=== PATIENT | male | born 1945 | race African-American/Black ===

== ENCOUNTER 2017-03-13 13:26 | Inpatient (IN) | payer MEDICARE, OTHER ==
[~2017-03-13] VITALS: Ht 188 cm; Wt 78.4 kg
[~2017-03-13 13:26] MED LIST: AMLO5TAB22 PO; ASPI1TAB7 PO; ATRO0.03 EACH NARE; CARV25TA PO; FERR324T4 PO; FLUN25I EACH NARE; HYDR-2768 PO; HYDR-3533 PO; LANTUS2P SQ; LISI-363 PO; MOME16.7; NOVOINJ3 SQ; OMEP20TA PO; SIMV20 PO; SPIRCAP INH; WAL-10TA2 PO; ZOFR4TAB3 SL
[2017-03-13 13:28] VITALS: BP 165/73; PULSE 90; RESP 20; TEMP 99.1; O2SAT 99
[2017-03-13 15:06] LABS: AUTOMATED NEUTROPHIL # 2.7 TH/MM3 (1.8-7.7); BASOPHIL # 0.1 TH/MM3 (0-0.2); BASOPHIL % 1.1 % (0.0-2.0); EOSINOPHIL # 0.3 TH/MM3 (0-0.4); EOSINOPHIL % 4.9 % (0.0-4.0); HEMATOCRIT 35.5 % (39.0-51.0); LYMPH % 37.8 % (9.0-44.0); LYMPHOCYTE # 2.4 TH/MM3 (1.0-4.8); MEAN CORPUSCULAR HEMOGLOBIN 28.3 PG (27.0-34.0); MEAN CORPUSCULAR HGB CONC 33.7 % (32.0-36.0); MONO % 12.5 % (0.0-8.0); MONOCYTE # 0.8 TH/MM3 (0-0.9); NEUT % 43.7 % (16.0-70.0); PLATELET COUNT 267 TH/MM3 (150-450); RED BLOOD COUNT 4.23 MIL/MM3 (4.50-5.90); RED CELL DISTRIBUTION WIDTH 14.8 % (11.6-17.2); WHITE BLOOD COUNT 6.2 TH/MM3 (4.0-11.0)
[2017-03-13] MEDS ORDERED: COUM2.5T PO (15:34)
[2017-03-13] MEDS ORDERED: IPRA0.06 EACH NARE (15:34)
[2017-03-13] MEDS ORDERED: SIMV10TA PO (15:34)
[2017-03-13] MEDS ORDERED: HYDR25TA5 PO (15:34)
[2017-03-13] MEDS ORDERED: NOVOINJ3 SQ (15:34)
[2017-03-13] MEDS ORDERED: LANTUS2P SQ (15:34)
[2017-03-13] MEDS ORDERED: CARV25TA PO (15:34)
[2017-03-13] MEDS ORDERED: FERR325T18 PO (15:34)
[2017-03-13] MEDS ORDERED: FLUN25I EACH NARE (15:34)
[2017-03-13] MEDS ORDERED: COUM5TAB PO (15:34)
[2017-03-13] MEDS ORDERED: LORA-567 PO (15:34)
[2017-03-13] MEDS ORDERED: ALBI1INJ2 SQ (15:34)
[2017-03-13] MEDS ORDERED: OMEP20TA93 PO (15:34)
[2017-03-13 15:38] LABS: ALKALINE PHOSPHATASE 77 U/L (45-117); ALT (GPT) 42 U/L (12-78); TOTAL BILIRUBIN ADULT 0.2 MG/DL (0.2-1.0); TOTAL PROTEIN 8.2 GM/DL (6.4-8.2); TROPONIN I LESS THAN 0.02 NG/ML (0.02-0.05)
--- NOTE | 2017-03-13 15:39 | RADRPT ---
EXAM DATE/TIME: 03/13/2017 14:52 [facility] COMPARISON: CT BRAIN W/O CONTRAST, September 02, 2014, 16:25. INDICATIONS : Left sided weakness RADIATION DOSE: 38.73 CTDIvol (mGy) MEDICAL HISTORY : Hypertension. Cerebrovascular disease. Diabtes SURGICAL HISTORY : None. ENCOUNTER: Initial ACUITY: 3 days PAIN SCALE: 3/10 LOCATION: cranial TECHNIQUE: Multiple contiguous axial images were obtained of the head. Using automated exposure control and adj ustment of the mA and/or kV according to patient size, radiation dose was kept as low as reasonably a chievable to obtain optimal diagnostic quality images. DICOM format image data is available electro nically for review and comparison. FINDINGS: CEREBRUM: The ventricles are normal for age. No evidence of midline shift, mass lesion, hemorrhage or acute in farction. No extra-axial fluid collections are seen. POSTERIOR FOSSA: The cerebellum and brainstem are intact. The 4th ventricle is midline. The cerebellopontine angle i s unremarkable. EXTRACRANIAL: The visualized portion of the orbits is intact. SKULL: The calvaria is intact. No evidence of skull fracture. CONCLUSION: Negative for an acute process. Richard Alvarez MD FACR on March 13, 2017 at 15:36 Board Certified Radiologist. This report was verified electronically.
[2017-03-13 15:40] LABS: ALBUMIN 3.3 GM/DL (3.4-5.0); AST (GOT) 30 U/L (15-37); BLOOD UREA NITROGEN 49 MG/DL (7-18); CALCIUM 8.6 MG/DL (8.5-10.1); CHLORIDE 111 MEQ/L (98-107); CREATININE 3.18 MG/DL (0.60-1.30); GLOMERULAR FILTRATION RATE 24 ML/MIN (>89); GLUCOSE,RANDOM 188 MG/DL (74-106); SODIUM (NA) 139 MEQ/L (136-145)
[2017-03-13 15:41] LABS: INTERNATIONAL NORMALIZED RATIO 3.4 RATIO; PROTHROMBIN TIME - PATIENT 34.1 SEC (9.8-11.6)
[2017-03-13] MEDS ORDERED: SODIUM CHLORIDE 0.9% FLUSH 10 ML FLUSH IV FLUSH PRN (17:00)
[2017-03-13] MEDS ORDERED: DEXTROSE 50% IN WATER 50 ML VIAL(D50) IV PUSH PRN (17:00)
[2017-03-13] MEDS ORDERED: GLUCAGON 1 MG/ML VIAL OTHER PRN (17:00)
--- NOTE | 2017-03-13 17:14 | PD ---
HPI Chief Complaint: Numbness/Tingling Time Seen by Provider: 15:26 Travel History International Travel<30 days: No Contact w/Intl Traveler<30days: No Traveled to known affect area: No History of Present Illness HPI 71-year-old male that presents to the ED for evaluation of left-sided weakness and numbness. Per patient she's had this since Monday. Per patient since Monday he noted that he could've virally write with his left hand. Patient is left-handed. Per patient he noticed that he did go to improve a little bit but he still has difficulty writing. Per patient he feels weak on his arm. Per patient also he noticed that he had a little bit of left foot drop. Per patient he had difficulty ambulating but this itself has improved almost 100% back to normal. Per family members she's noted the patient has been confused in location in the past couple of days and unclear as to why brought the patient here today but it appears that symptoms are not improved and this is what got him here. Patient denies any chest pain. No shortness of breath. No history of CVA or TIA. No workup for this in the past. He does have a history of diabetes and high blood pressure. Denies any numbness, tingling at this time. No headache. No blurry vision or double vision. PFSH Past Medical History High Cholesterol: Yes Diabetes: Yes Patient Takes Glucophage: No Diminished Hearing: No GERD: Yes Hypertension: Yes Medical other: Yes (GOUT, RENAL INSUFFICIENCY) Immunizations Current: No Tetanus Vaccination: Unknown Influenza Vaccination: Yes Past Surgical History Eye Surgery: Yes (R EYE SURGERY) Other Surgery: Yes (BILATERAL LUNG BIOPSY ) Social History Alcohol Use: No Tobacco Use: No Substance Use: No Allergies-Medications (Allergen,Severity, Reaction): Coded Allergies: latex (Unverified Allergy, Unknown, Swelling, 03/13/17) Reported Meds & Prescriptions Reported Meds & Active Scripts Active Reported Coumadin (Warfarin) 5 Mg Tab 5 Mg PO ,,MON,SUN Coumadin (Warfarin) 2.5 Mg Tab 2.5 Mg PO MON,WED,MON Ferrous Sulfate 325 Mg (65 Mg Iron) Tablet 325 Mg PO BIDPC Ipratropium Nasal 0.06% Highland 1 Highland EACH NARE TID Loratadine Odt (Loratadine) 10 Mg Tab 10 Mg PO DAILY Omeprazole 20 Mg Tab 20 Mg PO DAILY Flunisolide Nasal Highland (Flunisolide) 0.025 Mg/Act Naspr 2 Highland EACH NARE BID Simvastatin 10 Mg Tab 10 Mg PO HS Carvedilol 25 Mg Tab 25 Mg PO BID Hydrochlorothiazide 25 Mg Tab 25 Mg PO DAILY Lantus Inj (Insulin Glargine) 1,000 Unit/10 Ml Vial 22 Units SQ HS Novolog Flexpen Inj (Insulin Aspart) 300 Unit/3 Ml Pen 1 SQ TID Tanzeum 4-Pack Inj (Albiglutide) 50 Mg Pfpen 50 Mg SQ Q7D Review of Systems Except as stated in HPI: all other systems reviewed are Neg Physical Exam Narrative GENERAL: SKIN: Warm and dry. HEAD: Atraumatic. Normocephalic. EYES: Pupils equal and round. No scleral icterus. No injection or drainage. ENT: No nasal bleeding or discharge. Mucous membranes pink and moist. Tongue is midline. No uvula deviation. NECK: Trachea midline. No JVD. CARDIOVASCULAR: Regular rate and rhythm. No murmurs, S3, S4. RESPIRATORY: No accessory muscle use. Clear to auscultation. Breath sounds equal bilaterally. GASTROINTESTINAL: Abdomen soft, non-tender, nondistended. Hepatic and splenic margins not palpable. MUSCULOSKELETAL: Extremities without clubbing, cyanosis, or edema. No obvious deformities. Full range of motion of the upper and lower extremities bilaterally. 2+ pulses bilaterally. No cervical, thoracic, lumbar spine tenderness to palpation. Patient does have weakness with plantar flexion on the left foot compared to the right but minimal maybe 4.5 out of 5. Same noted on the left hand with disability program navigator otherwise unremarkable exam. NEUROLOGICAL: Awake and alert and oriented 4. No obvious cranial nerve deficits. Motor grossly within normal limits. Five out of 5 muscle strength in the arms and legs. Normal speech. PSYCHIATRIC: Appropriate mood and affect; insight and judgment normal. Data Data Last Documented VS Vital Signs Date Time Temp Pulse Resp B/P (MAP) Pulse Ox O2 Delivery O2 Flow Rate FiO2 03/13/17 13:28 99.1 90 20 165/73 (103) 99 Room Air Orders Orders Electrocardiogram (03/13/17 13:41) Prothrombin Time / Inr (Pt) (03/13/17 13:41) Act Partial Throm Time (Ptt) (03/13/17 13:41) Complete Blood Count With Diff (03/13/17 13:41) Comprehensive Metabolic Panel (03/13/17 13:41) Troponin I (03/13/17 13:41) Ct Brain W/O Iv Contrast(Rout) (03/13/17 13:41) Ct Cerv Spine W/O Contrast (03/13/17 ) Place In Observation (03/13/17 ) Vital Signs (Adult) Q2HX12,Q4H (03/13/17 16:59) Nih Stroke Scale - Nihss .Daily (03/13/17 16:59) Neuro Checks Q2HX12,Q4H (03/13/17 16:59) Notify Dr: Other (03/13/17 16:59) Remove Urinary Catheter .ONCE (03/13/17 16:59) Ot Request For Service (03/13/17 16:59) Pt Request For Service (03/13/17 16:59) Case Management Consult (03/13/17 ) Activity Oob Ad Kimber (03/13/17 16:59) Nursing Bedside Swallow Assess .ONCE (03/13/17 16:59) Scd Bilateral/Knee High JAYSON.QSHIFT (03/13/17 16:59) Diet Npo (03/13/17 Dinner) Hemoglobin (Hgb) A1c (03/13/17 16:59) Lipid Profile (03/14/17 06:00) Us Carotid Arteries Comp Bilat (03/13/17 ) Mra Brain W/O Contrast (Cow) (03/13/17 ) Mri Brain W/O Contrast (03/13/17 ) Echo 2d Comp With Doppler (03/13/17 ) ^ Hold Medication (03/13/17 16:59) Consult Neurology (03/13/17 ) Sodium Chloride 0.9% Flush (Ns Flush) (03/13/17 21:00) Sodium Chloride 0.9% Flush (Ns Flush) (03/13/17 17:00) Bedside Glucose JAYSON.CSUGAR (03/13/17 16:59) Dextrose 50% In Rickie (Vial) Inj (D50w (Vi (03/13/17 17:00) Glucagon Inj (Glucagon Inj) (03/13/17 17:00) Consult Rehab Medicine (03/13/17 16:59) Intermediate Card Tender / Telemetry JAYSON.Q8H (03/13/17 16:59) Consult Stroke Navigator (03/13/17 ) Admit Order (Ed Use Only) (03/13/17 17:05) Labs Laboratory Tests Test 03/13/17 14:07 White Blood Count 6.2 TH/MM3 Red Blood Count 4.23 MIL/MM3 Hemoglobin 12.0 GM/DL Hematocrit 35.5 % Mean Corpuscular Volume 84.0 FL Mean Corpuscular Hemoglobin 28.3 PG Mean Corpuscular Hemoglobin Concent 33.7 % Red Cell Distribution Width 14.8 % Platelet Count 267 TH/MM3 Mean Platelet Volume 9.0 FL Neutrophils (%) (Auto) 43.7 % Lymphocytes (%) (Auto) 37.8 % Monocytes (%) (Auto) 12.5 % Eosinophils (%) (Auto) 4.9 % Basophils (%) (Auto) 1.1 % Neutrophils # (Auto) 2.7 TH/MM3 Lymphocytes # (Auto) 2.4 TH/MM3 Monocytes # (Auto) 0.8 TH/MM3 Eosinophils # (Auto) 0.3 TH/MM3 Basophils # (Auto) 0.1 TH/MM3 CBC Comment DIFF FINAL Differential Comment Prothrombin Time 34.1 SEC Prothromb Time International Ratio 3.4 RATIO Activated Partial Thromboplast Time 39.3 SEC Blood Urea Nitrogen 49 MG/DL Creatinine 3.18 MG/DL Random Glucose 188 MG/DL Total Protein 8.2 GM/DL Albumin 3.3 GM/DL Calcium Level 8.6 MG/DL Alkaline Phosphatase 77 U/L Aspartate Amino Transf (AST/SGOT) 30 U/L Alanine Aminotransferase (ALT/SGPT) 42 U/L Total Bilirubin 0.2 MG/DL Sodium Level 139 MEQ/L Potassium Level 4.9 MEQ/L Chloride Level 111 MEQ/L Carbon Dioxide Level 21.0 MEQ/L Anion Gap 7 MEQ/L Estimat Glomerular Filtration Rate 24 ML/MIN Troponin I LESS THAN 0.02 NG/ML MDM Medical Decision Making Medical Screen Exam Complete: Yes Emergency Medical Condition: Yes Medical Record Reviewed: Yes Interpretation(s) CBC & BMP Diagram 03/13/17 14:07 Total Protein 8.2, Albumin 3.3 L, Calcium Level 8.6, Alkaline Phosphatase 77, Aspartate Amino Transf (AST/SGOT) 30, Alanine Aminotransferase (ALT/SGPT) 42, Total Bilirubin 0.[address] 03/13/17 1341 Signed Impressions: Service Date/Time: Monday, March 13, 2017 14:52 - CONCLUSION: Negative for an acute process. Richard Alvarez MD FACR Differential Diagnosis TA versus CVA versus electron normality versus neuropathy versus radiculopathy Narrative Course 71-year-old male that presents to the ED for evaluation of neuropathy to the left side. Patient was properly examined and was found to have signs and symptoms concerning for CVA versus TIA. Labs and imaging ordered. Labs and imaging were essentially unremarkable. Patient does have symptoms concerning for CVA and has never had a workup for this in the past and recommendation is for admission for further eval of this. Patient agrees with this. Case discussed with Dr Stewart who agrees to admission. Diagnosis Primary Impression: CVA (cerebral vascular accident) Qualified Codes: I63.9 - Cerebral infarction, unspecified Admitting Information Admitting Physician Requests: Jayant Sanderson Mar 13, 2017 17:14
--- NOTE | 2017-03-13 17:19 | RADRPT ---
EXAM DATE/TIME: 03/13/2017 16:25 [facility] COMPARISON: No previous studies available for comparison. INDICATIONS : Left arm weakness. RADIATION DOSE: 40.20 CTDIvol (mGy) MEDICAL HISTORY : Hypertension. Diabetes mellitus type 2. SURGICAL HISTORY : Fusion, cervical. ENCOUNTER: Initial ACUITY: 2 days PAIN SCALE: 0/10 LOCATION: neck TECHNIQUE: Volumetric scanning of the cervical spine was performed. Multiplanar reconstructions in the sagittal, coronal and oblique axial planes were performed. Using automated exposure control and adjustment o f the mA and/or kV according to patient size, radiation dose was kept as low as reasonably achievable to obtain optimal diagnostic quality images. DICOM format image data is available electronically f or review and comparison. FINDINGS: VERTEBRAE: Postsurgical features of anterior plate and screw fixation and interbody fusion at C3-C5 with near-co mplete bony fusion. Dens is intact. ALIGNMENT: Subtle retrolisthesis of C2 on C3. Otherwise, sagittal alignment is maintained. Normal C1-2 relations hip. C2-C3: Diffuse disc bulge and uncovertebral osteophytes with resultant apparent severe spinal canal stenosis . Bony neural foramina are patent. C3-C4: Anterior bony fusion. Mild central canal stenosis secondary to posterior osteophytes. No significant neural foraminal stenosis. C4-C5: Anterior bony fusion. Mild central canal stenosis secondary to posterior osteophytes. No significant neural foraminal stenosis. C5-C6: Mild uncovertebral osteophytes and minimal facet arthropathy. No significant central canal or neural foraminal stenosis. C6-C7: Minimal diffuse disc bulge with minimal effacement of the anterior thecal sac. No significant neural foraminal stenosis. C7-T1: The bony spinal canal is normal in size. No evidence of disc bulge or herniation. The neural forami na are bilaterally patent. CONCLUSION: 1. Anterior fixation at C3-5 with near-complete bony fusion. 2. Adjacent level disease at C2-3 with diffuse disc bulge and uncovertebral osteophytes resulting in severe spinal canal stenosis. Rajeev Altamirano MD on March 13, 2017 at 17:11 Board Certified Radiologist. This report was verified electronically.
[2017-03-13 17:36] VITALS: BP 181/82; PULSE 60; RESP 18; O2SAT 99
--- NOTE | 2017-03-13 18:32 | HHI.HP ---
[facility] Service [facility] Admission Diagnosis CVA, left sided weakness since monday Diagnoses: Travel History International Travel<30 Days: No Contact w/Intl Traveler <30 Da: No Traveled to Known Affected Are: No History of Present Illness History from patient, ER physician communication, and review of medical records. Patient's who is at the bedside also provided some history. Patient reported that starting about a few days ago, he noted that he was not able to write with his left hand properly. Stated it takes him a while to right and he is usually left-handed. He also reports of dragging his left foot for past few days. Therefore went to his occup therapist Dr. Santos today who referred him to come to hospital. Patient reports that he usually uses a cane since 2010 because of balance issues. Is very different from his normal. On review of system, patient reports that he was feeling somewhat dizzy on . He stays in bed for a few hours and dizziness actually resolved on its own. Apart from that, patient denies any any recent fever/nausea/vomiting/diarrhea/ urinary burning or pain on urination. Next I denies any blood in his stool or urine. Patient is on Coumadin at home. He reports of history of atrial fibrillation. He denies any chest pain/palpitations/dizziness/syncopal episodes. Review of Systems Except as stated in HPI: all other systems reviewed are Neg Past Family Social History Past Medical History htn dm afib on coumadin copd not on oxygen ckd stage IV - Dr Mendoza in [facility] Past Surgical History lung sx - for lesions in lung- for biopsy- not cancer- took steroids for a year neck sx - fusion Allergies: Coded Allergies: latex (Unverified Allergy, Unknown, Swelling, 03/13/17) Family History parents- from cancer- lung (both smokers) , mom had breast cancer both parents- htn Social History never smoked havent drank for a long time since his 20s no drugs still driving, lives with Physical Exam Vital Signs Vital Signs Date Time Temp Pulse Resp B/P (MAP) Pulse Ox O2 Delivery O2 Flow Rate FiO2 03/13/17 17:40 03/13/17 17:36 60 18 181/82 (115) 99 Room Air 03/13/17 13:28 99.1 90 20 165/73 (103) 99 Room Air Physical Exam GENERAL: This is a well-nourished, well-developed patient, in no apparent distress. SKIN: No rashes, ecchymoses or lesions. Cool and dry. HEAD: Atraumatic. Normocephalic. No temporal or scalp tenderness. EYES: No scleral icterus. No injection or drainage. ENT: Nose without bleeding, purulent drainage or septal hematoma. Airway patent. NECK: Trachea midline. No JVD . Supple, nontender, no meningeal signs. CARDIOVASCULAR: Regular rate and rhythm without murmurs, gallops, or rubs. RESPIRATORY: Clear to auscultation. Breath sounds equal bilaterally. No wheezes , rales, or rhonchi. GASTROINTESTINAL: Abdomen soft, non-tender, nondistended. No guarding. MUSCULOSKELETAL: Extremities without clubbing, cyanosis, or edema. . No calf tenderness. NEUROLOGICAL: Awake and alert. Cranial nerves II through XII intact. Motor and sensory grossly within normal limits.. Normal speech. Laboratory Laboratory Tests Test 03/13/17 14:07 White Blood Count 6.2 Red Blood Count 4.23 Hemoglobin 12.0 Hematocrit 35.5 Mean Corpuscular Volume 84.0 Mean Corpuscular Hemoglobin 28.3 Mean Corpuscular Hemoglobin Concent 33.7 Red Cell Distribution Width 14.8 Platelet Count 267 Mean Platelet Volume 9.0 Neutrophils (%) (Auto) 43.7 Lymphocytes (%) (Auto) 37.8 Monocytes (%) (Auto) 12.5 Eosinophils (%) (Auto) 4.9 Basophils (%) (Auto) 1.1 Neutrophils # (Auto) 2.7 Lymphocytes # (Auto) 2.4 Monocytes # (Auto) 0.8 Eosinophils # (Auto) 0.3 Basophils # (Auto) 0.1 CBC Comment DIFF FINAL Differential Comment Prothrombin Time 34.1 Prothromb Time International Ratio 3.4 Activated Partial Thromboplast Time 39.3 Blood Urea Nitrogen 49 Creatinine 3.18 Random Glucose 188 Total Protein 8.2 Albumin 3.3 Calcium Level 8.6 Alkaline Phosphatase 77 Aspartate Amino Transf (AST/SGOT) 30 Alanine Aminotransferase (ALT/SGPT) 42 Total Bilirubin 0.2 Sodium Level 139 Potassium Level 4.9 Chloride Level 111 Carbon Dioxide Level 21.0 Anion Gap 7 Estimat Glomerular Filtration Rate 24 Troponin I LESS THAN 0.02 Result Diagram: 03/13/17 1407 03/13/17 1407 Imaging Last [address] 03/13/17 1341 Signed Impressions: Service Date/Time: Monday, March 13, 2017 14:52 - CONCLUSION: Negative for an acute process. Richard Alvarez MD FACR Cervical Spine CT 03/13/17 0000 Signed Impressions: Service Date/Time: Monday, March 13, 2017 16:25 - CONCLUSION: 1. Anterior fixation at C3-5 with near-complete bony fusion. 2. Adjacent level disease at C2-3 with diffuse disc bulge and uncovertebral osteophytes resulting in severe spinal canal stenosis. MD Rusty Whitten VTE Risk Assessment Caprini VTE Risk Assessment: Mod/High Risk (score >= 2) Caprini Risk Assessment Model Point Value = 1 Point Value = 2 Point Value = 3 Point Value = 5 Age 41-60 Minor surgery BMI > 25 kg/m2 Swollen legs Varicose veins or History of unexplained or recurrent spontaneous Oral contraceptives or hormone replacement Sepsis (< 1 month) Serious lung disease, including pneumonia (< 1 month) Abnormal pulmonary function Acute myocardial infarction Congestive heart failure (< 1 month) History of inflammatory bowel disease Medical patient at bed rest Age 61-74 Arthroscopic surgery Major open surgery (> 45 min) Laparoscopic surgery (> 45 min) Malignancy Confined to bed (> 72 hours) Immobilizing plaster cast Central venous access Age >= 75 History of VTE Family history of VTE Factor V Leiden Prothrombin [id number] Lupus anticoagulant Anticardiolipin antibodies Elevated serum homocysteine Heparin-induced thrombocytopenia Other congenital or acquired thrombophilia Stroke (< 1 month) Elective arthroplasty Hip, pelvis, or leg fracture Acute spinal cord injury (< 1 month) Prophylaxis Regimen Total Risk Factor Score Risk Level Prophylaxis Regimen 0-1 Low Early ambulation 2 Moderate Order ONE of the following: *Sequential Compression Device (SCD) *Heparin 5000 units SQ BID 3-4 Higher Order ONE of the following medications: *Heparin 5000 units SQ TID *Enoxaparin/Lovenox 40 mg SQ daily (WT < 150 kg, CrCl > 30 mL/min) *Enoxaparin/Lovenox 30 mg SQ daily (WT < 150 kg, CrCl > 10-29 mL/min) *Enoxaparin/Lovenox 30 mg SQ BID (WT < 150 kg, CrCl > 30 mL/min) AND/OR *Sequential Compression Device (SCD) 5 or more Highest Order ONE of the following medications: *Heparin 5000 units SQ TID (Preferred with Epidurals) *Enoxaparin/Lovenox 40 mg SQ daily (WT < 150 kg, CrCl > 30 mL/min) *Enoxaparin/Lovenox 30 mg SQ daily (WT < 150 kg, CrCl > 10-29 mL/min) *Enoxaparin/Lovenox 30 mg SQ BID (WT < 150 kg, CrCl > 30 mL/min) AND *Sequential Compression Device (SCD) Assessment and Plan Assessment and Plan Impression: Possible CVA. Suspects cervical stenosis with nerve impingement symptoms Supratherapeutic INR. No evidence of acute bleed. htn dm afib on coumadin copd not on oxygen ckd stage IV - Dr Mendoza in [facility] Plan: MRI and MRA of the brain. Echocardiogram. Carotid sono. Neurology consult. Permissive hypertension for now. Resume home medications apart from antihypertensives. Monitor fingersticks. DVT prophylaxis to start once INR is less than 3. Discussed Condition With Patient, at the bedside, ER Charli Gonzalez MD Mar 13, 2017 18:32
[2017-03-13 19:01] VITALS: PULSE 89
[2017-03-13] MEDS: SODIUM CHLORIDE 0.9% FLUSH 10 ML FLUSH IV FLUSH SCH (20:33)
[2017-03-13 20:49] VITALS: BP 185/84; PULSE 92; RESP 18; TEMP 98.5; O2SAT 99
[2017-03-13] MEDS ORDERED: PRAVASTATIN SOD 20 MG TAB PO SCH (21:00)
--- NOTE | 2017-03-13 22:11 | RADRPT ---
EXAM DATE/TIME: 03/13/2017 17:47 [facility] COMPARISON: No previous studies available for comparison. INDICATIONS : CVA. Left sided weakness in arm and leg. MEDICAL HISTORY : Renal failure, chronic. Chronic obstructive pulmonary disease. SURGICAL HISTORY : Fusion, cervical. ENCOUNTER: Initial ACUITY: 2 day PAIN SCORE: 0/10 LOCATION: Left cranial TECHNIQUE: Multiplanar, multisequence MRI of the brain was performed without contrast. FINDINGS: CEREBRUM: The ventricles are normal for age. No evidence of midline shift, mass lesion, hemorrhage or acute in farction. No extraaxial fluid collections are seen. The pituitary gland and suprasellar cistern are normal in configuration. WHITE MATTER: Mild signal abnormalities are seen in the white matter. POSTERIOR FOSSA: The cerebellum and brainstem are intact. The 4th ventricle is midline. The cerebellopontine angle is unremarkable. The cerebellar tonsils are normal in position. DIFFUSION IMAGING: No focal areas of restricted diffusion are seen. No evidence of acute infarction. EXTRACRANIAL: The visualized portions of the orbits and paranasal sinuses are unremarkable. CONCLUSION: 1. Mild white matter ischemic changes. No recent infarct. No mass, hemorrhage or shift. Raman Mcmahon MD on March 13, 2017 at 22:06 Board Certified Radiologist. This report was verified electronically.
--- NOTE | 2017-03-13 22:13 | RADRPT ---
EXAM DATE/TIME: 03/13/2017 17:47 [facility] COMPARISON: No previous studies available for comparison. INDICATIONS : CVA. MEDICAL HISTORY : Renal failure, chronic. Chronic obstructive pulmonary disease. SURGICAL HISTORY : Fusion, cervical. ENCOUNTER: Initial ACUITY: 2 day PAIN SCORE: 0/10 LOCATION: Left cranial Please note a normal MRA of the brain does not entirely exclude the possibility of a small aneurysm, nor the possibility of distal intracranial vessel disease. TECHNIQUE: 3D time of flight MRA was performed. Source images, multiplanar STS MIP, and 3D volume MIP reconstru ctions were reviewed. FINDINGS: There is excellent visualization of the major intracranial arteries out to the second-order branch ve ssels. There is no evidence for aneurysm, vessel truncation or stenosis, and no evidence for vascula r malformation. CONCLUSION: Normal examination for a patient of this age. Raman Mcmahon MD on March 13, 2017 at 22:09 Board Certified Radiologist. This report was verified electronically.
[2017-03-13 22:22] LABS: HEMOGLOBIN A1C 8.7 % (4.3-6.0)
[2017-03-13] MEDS: INSULIN DETEMIR 100 UNITS/ML VIAL SQ SCH (22:22)
--- NOTE | 2017-03-13 22:31 | RADRPT ---
EXAM DATE/TIME: 03/13/2017 18:48 [facility] COMPARISON: No previous studies available for comparison. INDICATIONS : Cerebrovascular accident. MEDICAL HISTORY : Hypercholesterolemia. Hypertension. Gastroesophageal reflux disease. Diabetes. Renal insufficiency. SURGICAL HISTORY : Right eye surgery. Neck fusion. Bilateral lung biopsy. ENCOUNTER: Initial ACUITY: 1 day PAIN SCORE: 0/10 LOCATION: Bilateral neck PEAK SYSTOLIC VELOCITIES (cm/sec): ICA/CCA RATIO: Right: 1.5 Left: 0.9 ICA: Right: 107.5 Left: 117.3 CCA: Right: 73.2 Left: 126.9 ECA: Right: 93.8 Left: 61.1 VERTEBRAL: Right: 48.7 antegrade Left: 75.3 antegrade Elevated flow velocities and ICA/CCA ratios have been found to correlate with increased degrees of vessel stenosis, calculated as percentage of diameter relative to a normal segment of distal ICA/CCA FINDINGS: RIGHT CAROTID: No significant stenosis is visualized. The waveforms are within normal limits. LEFT CAROTID: No significant stenosis is visualized. The waveforms are within normal limits. VERTEBRAL ARTERIES: Antegrade flow is seen in both vertebral arteries. MISCELLANEOUS: None. CONCLUSION: 1. Minimal plaque visualized without hemodynamically significant stenosis. Raman Mcmahon MD on March 13, 2017 at 22:28 Board Certified Radiologist. This report was verified electronically.
[2017-03-14] VITALS (8 sets, daily range): BP systolic 147–187; BP diastolic 80–96; PULSE 82–110; RESP 18; TEMP 95.5–98.4; O2SAT 98–100
[2017-03-14 05:02] LABS: CHOLESTEROL/ HDL RATIO 4.79 RATIO; HDL CHOLESTEROL 39.6 MG/DL (40.0-60.0)
[2017-03-14] MEDS ORDERED: DILT-46 PO (05:23)
[2017-03-14] MEDS: SODIUM CHLORIDE 0.9% FLUSH 10 ML FLUSH IV FLUSH SCH ×2 (08:28→20:22)
[2017-03-14] MEDS: PANTOPRAZOLE SOD 20 MG DELAYED RELEASE TAB PO SCH (08:28)
--- NOTE | 2017-03-14 09:02 | PD.CONS ---
History of Present Illness Service Neurology Consult Requested By medical Reason for Consult stroke Primary Care Physician [facility] History of Present Illness 71 y/o m with hx of afib on coumadin admitted for rt arm weakness. states he has been having difficulty writing with his rt hand for the past 2 days. feels better now. no sofia, no trauma. denies any focal weakness this am. ready to eat. ct brain naicp. glucose 188 inr 3.4 Patient reports that he usually uses a cane since 2010 because of imbalance. Review of Systems Except as stated in HPI: all other systems reviewed are Neg/as per admit hp Past Family Social History Past Medical History htn dm afib on coumadin copd not on oxygen ckd stage IV - Dr Mendoza in [facility] Past Surgical History lung sx - for lesions in lung- for biopsy- not cancer cervical fusion Allergies: Coded Allergies: latex (Unverified Allergy, Unknown, Swelling, 03/13/17) Family History parents- htn Social History never smoked quit etoh retired business office representative from [place] no drugs lives with Review of Systems All other ROS: ROS reviewed as documented in chart Past Family Social History Allergies: Coded Allergies: latex (Unverified Allergy, Unknown, Swelling, 03/13/17) Active Ordered Medications Current Medications Medications (Trade) Dose Ordered Sig/Floyd Route Start Time Stop Time Status Last Admin (NS Flush) 2 ml BID IV FLUSH 03/13/17 21:00 03/14/17 08:28 (NS Flush) 2 ml UNSCH PRN IV FLUSH 03/13/17 17:00 (D50w (Vial) Inj) 50 ml UNSCH PRN IV PUSH 03/13/17 17:00 (Glucagon Inj) 1 mg UNSCH PRN OTHER 03/13/17 17:00 (Levemir Inj) 22 units HS SQ 03/13/17 21:00 03/13/17 22:22 (Protonix) 20 mg DAILY PO 03/14/17 09:00 03/14/17 08:28 (Pravachol) 20 mg HS PO 03/13/17 21:00 (Coreg) 25 mg BID PO 03/14/17 09:00 UNV (Cardizem Cd) 360 mg DAILY PO 03/14/17 09:00 UNV (Ferrous Sulfate) 325 mg BIDPC PO 03/14/17 09:00 UNV Non-Formulary Medication 10 mg DAILY PO 03/14/17 09:00 UNV Exam I&O / VS Vital Signs Date Time Temp Pulse Resp B/P (MAP) Pulse Ox O2 Delivery O2 Flow Rate FiO2 03/14/17 07:56 102 03/14/17 07:27 96.1 103 18 187/90 (122) 99 03/14/17 05:17 98.2 110 18 147/96 (113) 100 03/13/17 20:49 98.5 92 18 185/84 (117) 99 03/13/17 19:01 89 03/13/17 17:40 03/13/17 17:36 60 18 181/82 (115) 99 Room Air 03/13/17 13:28 99.1 90 20 165/73 (103) 99 Room Air General: Alert and Oriented, No acute distress Eye: EOMI Respiratory: Non-labored respirations Neurologic: Alert, Oriented, CN II-XII intact, Normal DTR's Psychiatric: Cooperative, Appropriate mood & affect Exam Comments ox 3, no aphasia, articulate, follows, eomi, ou 3-2mm, no drift, no focal weakness, minimal rt ue dystaxia, tahir le reduced pin stocking, no clonus, planter flexor Review/Management Diagnosis/Plan: (1) Cervical spondylolysis ICD Codes: M43.02 - Spondylolysis, cervical region Status: Chronic Plan: may have cord compression causing some of his symptoms recs mri cspine nsx eval (2) TIA (transient ischemic attack) ICD Codes: G45.9 - Transient cerebral ischemic attack, unspecified Status: Acute Plan: lesser likely with no acute ischemia on mri and therapeutic inr mra brain nml carotid u/s nml resume home bp meds ldl <70 goal (3) DM neuropathies ICD Codes: E11.40 - Type 2 diabetes mellitus with diabetic neuropathy, unspecified Status: Chronic (4) CKD (chronic kidney disease) ICD Codes: N18.9 - Chronic kidney disease, unspecified Status: Chronic Alex Huffman MD Mar 14, 2017 09:02
--- NOTE | 2017-03-14 09:43 | HHI.PR ---
Subjective Remarks Follow-up neuro deficits. Patient feels better today. Denies neck pain, weakness and numbness. History of cervical spine surgery secondary tofxr. Discussed with nursing staff Objective Vitals Vital Signs Date Time Temp Pulse Resp B/P (MAP) Pulse Ox O2 Delivery O2 Flow Rate FiO2 03/14/17 07:56 102 03/14/17 07:27 96.1 103 18 187/90 (122) 99 03/14/17 05:17 98.2 110 18 147/96 (113) 100 03/13/17 20:49 98.5 92 18 185/84 (117) 99 03/13/17 19:01 89 03/13/17 17:40 03/13/17 17:36 60 18 181/82 (115) 99 Room Air 03/13/17 13:28 99.1 90 20 165/73 (103) 99 Room Air I/O 03/13/17 03/13/17 03/13/17 03/14/17 03/14/17 03/14/17 07:00 15:00 23:00 07:00 15:00 23:00 Intake Total 225 ml Balance 225 ml Intake Oral 225 ml Result Diagram: 03/13/17 1407 03/13/17 1407 Imaging Last Impressions Head CT 03/13/17 1341 Signed Impressions: Service Date/Time: Monday, March 13, 2017 14:52 - CONCLUSION: Negative for an acute process. Richard Alvarez MD FACR Head Magnetic Resonance Angiography 03/13/17 0000 Signed Impressions: Service Date/Time: Monday, March 13, 2017 17:47 - CONCLUSION: Normal examination for a patient of this age. Raman Mcmahon MD Cervical Spine CT 03/13/17 0000 Signed Impressions: Service Date/Time: Monday, March 13, 2017 16:25 - CONCLUSION: 1. Anterior fixation at C3-5 with near-complete bony fusion. 2. Adjacent level disease at C2-3 with diffuse disc bulge and uncovertebral osteophytes resulting in severe spinal canal stenosis. Rajeev Altamirano MD Carotid Artery Ultrasound 03/13/17 0000 Signed Impressions: Service Date/Time: Monday, March 13, 2017 18:48 - CONCLUSION: 1. Minimal plaque visualized without hemodynamically significant stenosis. Raman Mcmahon MD Brain MRI 03/13/17 0000 Signed Impressions: Service Date/Time: Monday, March 13, 2017 17:47 - CONCLUSION: 1. Mild white matter ischemic changes. No recent infarct. No mass, hemorrhage or shift. Raman Mcmahon MD Objective Remarks GENERAL: This is a well-nourished, well-developed patient, in no apparent distress. SKIN: No rashes, ecchymoses or lesions. Cool and dry. NECK: Trachea midline. No JVD . Supple, nontender, no meningeal signs. CARDIOVASCULAR: Regular rate and rhythm without murmurs, gallops, or rubs. RESPIRATORY: Clear to auscultation. Breath sounds equal bilaterally. No wheezes , rales, or rhonchi. GASTROINTESTINAL: Abdomen soft, non-tender, nondistended. No guarding. MUSCULOSKELETAL: Extremities without clubbing, cyanosis, or edema. . No calf tenderness. NEUROLOGICAL: Awake and alert. Cranial nerves II through XII intact. Motor and sensory grossly within normal limits.. Normal speech. Procedures none A/P Problem List: (1) CVA (cerebral vascular accident) ICD Code: I63.9 - Cerebral infarction, unspecified Status: Acute (2) TIA (transient ischemic attack) ICD Code: G45.9 - Transient cerebral ischemic attack, unspecified Status: Acute Assessment and Plan Possible TIA. Neuro workup negative so far. Doubt with supratherapeutic INR. Keep LDL less than 70 increase Pravachol to 40 mg daily and follow-up echocardiogram Cervical cervical stenosis with nerve impingement symptoms. Obtain cervical MRI and consult neurosurgery hold Coumadin for possible intervention Supratherapeutic INR. No evidence of acute bleed. Hold Coumadin for now htn. Continue home medication and monitor BP dm. Continue home medication and monitor fingersticks afib on coumadin . CVR. Hold Coumadin as above. copd not on oxygen ckd stage IV - Dr Mendoza in [facility] . Avoid nephrotoxins hold ARB for now DVT prophylaxis to start once INR is less than 2. Problem Qualifiers (1) CVA (cerebral vascular accident): Qualified Codes: I63.9 - Cerebral infarction, unspecified Harrison Valderrama MD Mar 14, 2017 09:43
--- NOTE | 2017-03-14 10:34 | RADRPT ---
EXAM DATE/TIME: 03/14/2017 09:28 [facility] COMPARISON: No previous studies available for comparison. INDICATIONS : Left sided arm weakness. MEDICAL HISTORY : Hypertension. Diabetes mellitus type 2. Chronic obstructive pulmonary disease. Stage 4 renal disease SURGICAL HISTORY : Fusion, cervical. lung bx, cataract ENCOUNTER: Subsequent ACUITY: 2 day PAIN SCORE: 0/10 LOCATION: neck TECHNIQUE: Multiplanar, multisequence MRI examination of the cervical spine was performed. FINDINGS: At C2-3 there is a large central disc protrusion which results in severe canal stenosis and severe co mpression of the spinal cord is flattened to an AP diameter of 2-3 mm. There is atrophic change and s ome myelomalacia and the remainder of the cord to the level of C5-. His previous fusion across C3-4-5 with mild residual AP canal stenosis. At C5-6 there is a mild disc bulge without significant stenosis. At C6-7 there is a mild posterior disc protrusion, slightly worse on the right side with mild AP lorenza l and right lateral recess stenosis. At C7-T1 there is a disc bulge without stenosis. Normal alignment of the cervical spine. CONCLUSION: 1. At C2-3 there is a large central disc protrusion with severe canal stenosis and compression of the cord to an AP diameter of 2 or 3 mm. There is myelomalacia of the cord below this level to the C5-6 level. Previous fusion C3-4-5 as above. Raman Mcmahon MD on March 14, 2017 at 10:28 Board Certified Radiologist. This report was verified electronically.
[2017-03-14] MEDS: CARVEDILOL 12.5 MG TAB PO SCH ×2 (11:10→20:21)
[2017-03-14] MEDS: FERROUS SULFATE 325 MG (65 MG ELEMENTAL IRON) TAB PO SCH ×2 (11:11→17:08)
[2017-03-14] MEDS: DILTIAZEM-CD 180 MG CAP ER PO SCH (11:11)
[2017-03-14] MEDS: LORATADINE 10 MG TAB PO SCH (11:12)
[2017-03-14 11:49] LABS: PROTHROMBIN TIME - PATIENT 30.4 SEC (9.8-11.6)
[2017-03-14] MEDS ORDERED: VALS1TAB70 PO (13:20)
--- NOTE | 2017-03-14 14:46 | PD.CONS ---
History of Present Illness Service Neurosurgery Consult Requested By Primary Care Physician [facility] Diagnoses: History of Present Illness 71 yo male states left upper greater than LE , weakness, loss of coordination starting last Monday and lasting 2 days. No KERR, nausea, fever. 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 No significant neck or LBP Review of Systems Constitutional: DENIES: Weight loss Eyes: DENIES: Blurred vision, Diplopia Ears, nose, mouth, throat: DENIES: Vertigo Respiratory: DENIES: Shortness of breath Cardiovascular: DENIES: Chest pain, Palpitations Gastrointestinal: DENIES: Nausea, Vomiting Musculoskeletal: DENIES: Joint pain, Muscle aches Neurologic: COMPLAINS OF: Abnormal gait, DENIES: Headache, Speech Problems Psychiatric: DENIES: Confusion Past Family Social History Allergies: Coded Allergies: latex (Unverified Allergy, Unknown, Swelling, 03/13/17) Past Medical History HTN A Fib DM COPD Stage IV CKD Past Surgical History ACDF Reported Medications Reported Meds & Active Scripts Active Reported Valsartan 320 Mg Tab 320 Mg PO DAILY Diltiazem ER 24 HR 360 Mg Caper 360 Mg PO DAILY Coumadin (Warfarin) 5 Mg Tab 5 Mg PO ,,MON,SUN Coumadin (Warfarin) 2.5 Mg Tab 2.5 Mg PO MON,MON,MON Ferrous Sulfate 325 Mg (65 Mg Iron) Tablet 325 Mg PO BIDPC Ipratropium Nasal 0.06% [place] 1 [place] EACH NARE TID Loratadine Odt (Loratadine) 10 Mg Tab 10 Mg PO DAILY Omeprazole 20 Mg Tab 20 Mg PO DAILY Flunisolide Nasal [place] (Flunisolide) 0.025 Mg/Act Naspr 2 [place] EACH NARE BID Simvastatin 10 Mg Tab 10 Mg PO HS Carvedilol 25 Mg Tab 25 Mg PO BID Hydrochlorothiazide 25 Mg Tab 25 Mg PO DAILY Lantus Inj (Insulin Glargine) 1,000 Unit/10 Ml Vial 22 Units SQ HS Novolog Flexpen Inj (Insulin Aspart) 300 Unit/3 Ml Pen 1 SQ TID Tanzeum 4-Pack Inj (Albiglutide) 50 Mg Pfpen 50 Mg SQ Q7D Family History Father lung CA Mother lung and breast CA Social History No smoke No Etoh Physical Exam Vital Signs Vital Signs Date Time Temp Pulse Resp B/P (MAP) Pulse Ox O2 Delivery O2 Flow Rate FiO2 03/14/17 12:16 101 03/14/17 10:50 95.5 102 18 154/86 (108) 100 03/14/17 07:56 102 03/14/17 07:27 96.1 103 18 187/90 (122) 99 03/14/17 05:17 98.2 110 18 147/96 (113) 100 03/13/17 20:49 98.5 92 18 185/84 (117) 99 03/13/17 19:01 89 03/13/17 17:40 03/13/17 17:36 60 18 181/82 (115) 99 Room Air Physical Exam GENERAL: This is a well-nourished, well-developed patient, in no apparent distress. SKIN: No rashes, ecchymoses or lesions. Cool and dry. HEAD: Atraumatic. Normocephalic. No temporal or scalp tenderness. EYES: Pupils equal round and reactive. Extraocular motions intact. No scleral icterus. No injection or drainage. ENT: Nose without bleeding, purulent drainage or septal hematoma. Throat without erythema, tonsillar hypertrophy or exudate. Uvula midline. Airway patent. NECK: Trachea midline. No JVD or lymphadenopathy. Supple, nontender, no meningeal signs. CARDIOVASCULAR: Regular rate and rhythm without murmurs, gallops, or rubs. RESPIRATORY: Clear to auscultation. Breath sounds equal bilaterally. No wheezes , rales, or rhonchi. GASTROINTESTINAL: Abdomen soft, non-tender, nondistended. No hepato-splenomegaly , or palpable masses. No guarding. MUSCULOSKELETAL: Extremities without clubbing, cyanosis, or edema. No joint tenderness, effusion, or edema noted. No calf tenderness. Negative Homans sign bilaterally. NEUROLOGIC: Sensation intact light touch all extremities. Ramirez's abent bilaterl No ankle clonus Significant postive plantar response bilaterl with triple flexion response in legs Laboratory Laboratory Tests Test 03/14/17 04:16 03/14/17 10:25 Triglycerides Level 210 Cholesterol Level 190 LDL Cholesterol 108 HDL Cholesterol 39.6 Cholesterol/HDL Ratio 4.79 Prothrombin Time 30.4 Prothromb Time International Ratio 3.0 Result Diagram: 03/13/17 1407 03/13/17 1407 Imaging Last Impressions Cervical Spine MRI 03/14/17 0000 Signed Impressions: Service Date/Time: Tuesday, March 14, 2017 09:28 - CONCLUSION: 1. At C2-3 there is a large central disc protrusion with severe canal stenosis and compression of the cord to an AP diameter of 2 or 3 mm. There is myelomalacia of the cord below this level to the C5-6 level. Previous fusion C3-4-5 as above. Raman Mcmahon MD Head CT 03/13/17 1341 Signed Impressions: Service Date/Time: Monday, March 13, 2017 14:52 - CONCLUSION: Negative for an acute process. Richard Alvarez MD FACR Head Magnetic Resonance Angiography 03/13/17 0000 Signed Impressions: Service Date/Time: Monday, March 13, 2017 17:47 - CONCLUSION: Normal examination for a patient of this age. Raman Mcmahon MD Cervical Spine CT 03/13/17 0000 Signed Impressions: Service Date/Time: Monday, March 13, 2017 16:25 - CONCLUSION: 1. Anterior fixation at C3-5 with near-complete bony fusion. 2. Adjacent level disease at C2-3 with diffuse disc bulge and uncovertebral osteophytes resulting in severe spinal canal stenosis. Rajeev Altamirano MD Carotid Artery Ultrasound 03/13/17 0000 Signed Impressions: Service Date/Time: Monday, March 13, 2017 18:48 - CONCLUSION: 1. Minimal plaque visualized without hemodynamically significant stenosis. Raman Mcmahon MD Brain MRI 03/13/17 0000 Signed Impressions: Service Date/Time: Monday, March 13, 2017 17:47 - CONCLUSION: 1. Mild white matter ischemic changes. No recent infarct. No mass, hemorrhage or shift. 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 Consents have been reviewed with the patient, signed and witnessed in the office today. All questions have been answered. He appears to understand the above and wishes to proceed with surgery in the near future. Anjel Carlson MD Mar 14, 2017 14:46
[2017-03-14] MEDS ORDERED: SODIUM CHLOR 0.45% 1000 ML INJ 1,000 ML IV SCH (16:00)
--- NOTE | 2017-03-14 16:58 | RADRPT ---
EXAM DATE/TIME: 03/14/2017 16:20 [facility] COMPARISON: No previous studies available for comparison. INDICATIONS : Evaluate for pneumonia, pneumothorax and communicable disease. Pre op for cervical spine surgery . MEDICAL HISTORY : Chronic obstructive pulmonary disease. Hypertension Diabetes II, Stage 4 renal disease SURGICAL HISTORY : cervical fusion, lung bx ENCOUNTER: Initial ACUITY: 2 days PAIN SCORE: 0/10 LOCATION: Bilateral chest FINDINGS: A single view of the chest demonstrates the lungs to be symmetrically aerated without evidence of mas s, infiltrate or effusion. Left base is somewhat obscured by overlying monitor leads but no obvious infiltrate. The cardiomediastinal contours are unremarkable. Osseous structures are intact. Surgical clips overlie the cervicothoracic junction possibly in the region of the thyroid bed. CONCLUSION: No acute cardiopulmonary process. Klaus Maria MD on March 14, 2017 at 16:53 Board Certified Radiologist. This report was verified electronically.
[2017-03-14] MEDS: INSULIN ASPART SUPPLEMENTAL SCALE SQ SCH ×2 (17:11→21:00)
--- NOTE | 2017-03-14 17:45 | EKG ---
Date Performed: 03/13/2017 Time Performed: 14:10:55 PTAGE: 71 years EKG: Sinus rhythm WITH FIRST DEGREE AV BLOCK ABNORMAL ECG PREVIOUS TRACING : 09/02/2014 16.35 DOCTOR: Alva Young Interpretating Date/Time 03/14/2017 17:37:52
--- NOTE | 2017-03-14 18:17 | ECHRPT ---
Indication: cva/tia CONCLUSIONS The left ventricular systolic function is normal with an estimated ejection fraction in the range of 55-60%. [id number] mitral valve regurgitation. There is mild tricuspid valve regurgitation. BP: / HR: Rhythm: MEASUREMENTS (Male / Female) Normal Values Technical Quality:Fair 2D ECHO LV Diastolic Diameter PLAX 2.6 cm 4.2 - 5.9 / 3.9 - 5.3 cm LV Systolic Diameter PLAX 2.0 cm IVS Diastolic Thickness 2.4 cm 0.6 - 1.0 / 0.6 - 0.9 cm LVPW Diastolic Thickness 1.6 cm 0.6 - 1.0 / 0.6 - 0.9 cm LV Relative Wall Thickness 1.5 RV Internal Dim ED PLAX 2.1 cm M-MODE Aortic Root Diameter MM 3.4 cm LA Systolic Diameter MM 3.4 cm LA Ao Ratio MM 1.0 AV Cusp Separation MM 2.1 cm DOPPLER LV E' Lateral Velocity 8.2 cm/s LV E' Septal Velocity 4.8 cm/s TR Peak Velocity 280.0 cm/s TR Peak Gradient 31.4 mmHg Right Atrial Pressure 10.0 mmHg Pulmonary Artery Systolic Pressu 41.4 mmHg Right Ventricular Systolic Press 41.4 mmHg FINDINGS LEFT VENTRICLE Normal left ventricular size. The left ventricular systolic function is normal with an estimated ejection fraction in the range of 55-60%. Nonobstructive prominent basal hypertrophy is present consistent with sigmoid septum. RIGHT VENTRICLE Normal right ventricular size and systolic function. LEFT ATRIUM The left atrial size is normal. RIGHT ATRIUM The right atrial size is normal. ATRIAL SEPTUM Normal atrial septal thickness. AORTA The aortic root and proximal ascending aorta are normal in size on limited imaging. MITRAL VALVE Structurally normal mitral valve. Mild mitral annular calcification. [id number] mitral valve regurgitation. No mitral valve stenosis. AORTIC VALVE Trileaflet aortic valve. No aortic valve regurgitation. No aortic valve stenosis. TRICUSPID VALVE Structurally normal tricuspid valve. There is mild tricuspid valve regurgitation. The estimated pulmonary arterial pressure is 41.4 mmHg. PULMONARY VALVE No pulmonary valve regurgitation or stenosis. VESSELS The inferior vena cava is normal in size. PERICARDIUM No pericardial effusion. Ata Novak DO (Electronically Signed) Final Date:14 March 2017 18:16
[2017-03-14] MEDS: PRAVASTATIN SOD 40 MG TAB PO SCH (20:20)
[2017-03-14] MEDS: INSULIN DETEMIR 100 UNITS/ML VIAL SQ SCH (20:21)
[2017-03-15] VITALS (12 sets, daily range): BP systolic 119–170; BP diastolic 68–88; PULSE 68–90; RESP 16–18; TEMP 97.1–97.9; O2SAT 97–99
[2017-03-15] MEDS ORDERED: POVIDONE IODINE 5% (ANTISEPSIS KIT) 4 APPLICATIONS EACH NARE PRN (02:00)
[2017-03-15] MEDS ORDERED: SODIUM CHLORID 0.9% 500 ML IV PRN (02:00)
[2017-03-15] MEDS ORDERED: LACTATED RINGER'S 1000 ML IV PRN (02:00)
[2017-03-15] MEDS ORDERED: CHLORHEXIDINE GLUCONATE 2 % 1 PACK (2 CLOTHS) TOPICAL PRN (02:00)
[2017-03-15] MEDS ORDERED: METOPROLOL TARTRATE 25 MG TAB PO PRN (02:00)
[2017-03-15] MEDS ORDERED: INSULIN HUMAN REGULAR 1,000 UNITS/10 ML VIAL SQ PRN (02:00)
[2017-03-15 07:10] LABS: INTERNATIONAL NORMALIZED RATIO 2.5 RATIO; PROTHROMBIN TIME - PATIENT 24.8 SEC (9.8-11.6)
[2017-03-15 07:36] LABS: BICARBONATE 20.4 MEQ/L (21.0-32.0); CALCIUM 8.8 MG/DL (8.5-10.1); CREATININE 2.53 MG/DL (0.60-1.30); MAGNESIUM 1.8 MG/DL (1.5-2.5)
--- NOTE | 2017-03-15 07:36 | HHI.PR ---
Review/Management Diagnosis/Plan: (1) Cervical spondylolysis ICD Codes: M43.02 - Spondylolysis, cervical region Status: Chronic Plan: C2,3 cord compression neuro stable recs decompression per nsx today appreciate their assistance (2) DM neuropathies ICD Codes: E11.40 - Type 2 diabetes mellitus with diabetic neuropathy, unspecified Status: Chronic (3) CKD (chronic kidney disease) ICD Codes: N18.9 - Chronic kidney disease, unspecified Status: Chronic Plan: bp/dm control (4) HTN (hypertension) ICD Codes: I10 - Essential (primary) hypertension Status: Chronic Plan: bp meds Subjective Subjective Comments No acute events reported No headache No chest pain No dyspnea Active Medications Current Medications Medications (Trade) Dose Ordered Sig/Floyd Route Start Time Stop Time Status Last Admin (NS Flush) 2 ml BID IV FLUSH 03/13/17 21:00 03/14/17 20:22 (NS Flush) 2 ml UNSCH PRN IV FLUSH 03/13/17 17:00 (D50w (Vial) Inj) 50 ml UNSCH PRN IV PUSH 03/13/17 17:00 (Glucagon Inj) 1 mg UNSCH PRN OTHER 03/13/17 17:00 (Levemir Inj) 22 units HS SQ 03/13/17 21:00 03/13/17 22:22 (Protonix) 20 mg DAILY PO 03/14/17 09:00 03/14/17 08:28 (Coreg) 25 mg BID PO 03/14/17 09:00 03/14/17 20:21 (Cardizem Cd) 360 mg DAILY PO 03/14/17 09:00 03/14/17 11:11 (Ferrous Sulfate) 325 mg BIDPC PO 03/14/17 09:00 03/14/17 17:08 (Claritin) 10 mg DAILY PO 03/14/17 09:00 (Pravachol) 40 mg HS PO 03/14/17 21:00 03/14/17 20:20 (NovoLOG SUPPLEMENTAL SCALE) 1 ACHS SLIDING SCALE SQ 03/14/17 17:00 03/14/17 17:11 Lactated Ringer's 1,000 ml @ 30 mls/hr Q24H PRN IV 03/15/17 02:00 03/18/17 01:59 03/15/17 04:31 Sodium Chloride 500 ml @ 30 mls/hr [id number] PRN IV 03/15/17 02:00 03/18/17 01:59 (Lopressor) 25 mg ASSOCIATE QUALITY ENGINEER PRN PO 03/15/17 02:00 03/18/17 01:59 (Betadine 5% Antisepsis Kit) 1 applic [employer]OCIATE QUALITY ENGINEER PRN EACH NARE 03/15/17 02:00 03/18/17 01:59 (Chlorhexidine 2% Cloth) 3 pack [employer]OCIATE QUALITY ENGINEER PRN TOPICAL 03/15/17 02:00 03/18/17 01:59 (NovoLIN R INJ) See Protocol Table ... ASSOCIATE QUALITY ENGINEER PRN SQ 03/15/17 02:00 03/18/17 01:59 Allergies Allergies Coded Allergies latex (Unverified Allergy, Unknown, Swelling, 03/13/17) Review of Systems All other ROS: ROS reviewed as documented in chart Exam I&O / VS Vital Signs Date Time Temp Pulse Resp B/P (MAP) Pulse Ox O2 Delivery O2 Flow Rate FiO2 03/15/17 04:09 97.2 84 18 154/71 (98) 99 03/15/17 03:45 68 03/15/17 03:11 Room Air 03/15/17 01:56 97.4 87 18 170/78 (108) 99 03/15/17 00:20 87 03/14/17 22:24 98.4 85 18 153/80 (104) 98 03/14/17 16:11 84 03/14/17 12:16 101 03/14/17 10:50 95.5 102 18 154/86 (108) 100 03/14/17 07:56 102 General: Alert and Oriented, No acute distress Eye: EOMI Respiratory: Non-labored respirations Neurologic: Alert, Oriented, CN II-XII intact, Normal DTR's Psychiatric: Cooperative, Appropriate mood & affect Exam Comments ox 3, no aphasia, articulate, follows, eomi, ou 3-2mm, no drift, no focal weakness, minimal rt ue dystaxia, tahir le reduced pin stocking, msr 2++ at kj, no clonus, planter flexor Objective Micro and Labs Laboratory Tests Test 03/14/17 10:25 03/15/17 05:55 Prothrombin Time 30.4 24.8 Prothromb Time International Ratio 3.0 2.5 Problem Qualifiers (1) HTN (hypertension): Qualified Codes: I10 - Essential (primary) hypertension Alex Huffman MD Mar 15, 2017 07:36
[2017-03-15] MEDS: INSULIN ASPART SUPPLEMENTAL SCALE SQ SCH ×4 (08:00→21:00)
[2017-03-15] MEDS: DILTIAZEM-CD 180 MG CAP ER PO SCH (08:52)
[2017-03-15] MEDS: CARVEDILOL 12.5 MG TAB PO SCH ×2 (08:53→21:47)
[2017-03-15] MEDS: FERROUS SULFATE 325 MG (65 MG ELEMENTAL IRON) TAB PO SCH ×2 (08:53→18:00)
[2017-03-15] MEDS: PANTOPRAZOLE SOD 20 MG DELAYED RELEASE TAB PO SCH (08:53)
[2017-03-15] MEDS: SODIUM CHLORIDE 0.9% FLUSH 10 ML FLUSH IV FLUSH SCH ×2 (09:00→21:46)
[2017-03-15] MEDS: LORATADINE 10 MG TAB PO SCH (09:00)
[2017-03-15] MEDS ORDERED: SODIUM CHLOR 0.9% 250 ML INJ 250 ML IV ONE (11:15)
[2017-03-15] MEDS ORDERED: PHYTONADIONE 2.5 MG/SWFI 2.5 ML ORAL SYR PO ONE (12:00)
[2017-03-15] MEDS ORDERED: ACETAMINOPHEN 325 MG TAB PO PRN (12:00)
[2017-03-15] MEDS ORDERED: diphenhydrAMINE HCL 25 MG CAP PO PRN (12:00)
--- NOTE | 2017-03-15 12:41 | HHI.PR ---
Subjective Remarks Follow up for left sided numbness, weakness, C2-3 cord compression. Patient is currently doing well. No pain. No fever, chills. Waiting for surgery today. Objective Vitals Vital Signs Date Time Temp Pulse Resp B/P (MAP) Pulse Ox O2 Delivery O2 Flow Rate FiO2 03/15/17 08:00 97.1 81 18 136/72 (93) 98 03/15/17 04:09 97.2 84 18 154/71 (98) 99 03/15/17 03:45 68 03/15/17 03:11 Room Air 03/15/17 01:56 97.4 87 18 170/78 (108) 99 03/15/17 00:20 87 03/14/17 22:24 98.4 85 18 153/80 (104) 98 03/14/17 16:11 84 I/O 03/14/17 03/14/17 03/14/17 03/15/17 03/15/17 03/15/17 07:00 15:00 23:00 07:00 15:00 23:00 Intake Total 225 ml 1000 ml Balance 225 ml 1000 ml Intake Oral 225 ml 0 ml IV Total 1000 ml # Voids 1 # Bowel Movements 0 Result Diagram: 03/13/17 1407 03/15/17 0555 Imaging Last Impressions Chest X-Ray 03/14/17 0000 Signed Impressions: Service Date/Time: Tuesday, March 14, 2017 16:20 - CONCLUSION: No acute cardiopulmonary process. Klaus Maria MD Cervical Spine MRI 03/14/17 0000 Signed Impressions: Service Date/Time: Tuesday, March 14, 2017 09:28 - CONCLUSION: 1. At C2-3 there is a large central disc protrusion with severe canal stenosis and compression of the cord to an AP diameter of 2 or 3 mm. There is myelomalacia of the cord below this level to the C5-6 level. Previous fusion C3-4-5 as above. Raman Mcmahon MD Head CT 03/13/17 1341 Signed Impressions: Service Date/Time: Monday, March 13, 2017 14:52 - CONCLUSION: Negative for an acute process. Richard Alvarez MD FACR Head Magnetic Resonance Angiography 03/13/17 0000 Signed Impressions: Service Date/Time: Monday, March 13, 2017 17:47 - CONCLUSION: Normal examination for a patient of this age. Raman Mcmahon MD Cervical Spine CT 03/13/17 0000 Signed Impressions: Service Date/Time: Monday, March 13, 2017 16:25 - CONCLUSION: 1. Anterior fixation at C3-5 with near-complete bony fusion. 2. Adjacent level disease at C2-3 with diffuse disc bulge and uncovertebral osteophytes resulting in severe spinal canal stenosis. Rajeev Altamirano MD Carotid Artery Ultrasound 03/13/17 0000 Signed Impressions: Service Date/Time: Monday, March 13, 2017 18:48 - CONCLUSION: 1. Minimal plaque visualized without hemodynamically significant stenosis. Raman Mcmahon MD Brain MRI 03/13/17 0000 Signed Impressions: Service Date/Time: Monday, March 13, 2017 17:47 - CONCLUSION: 1. Mild white matter ischemic changes. No recent infarct. No mass, hemorrhage or shift. Raman Mcmahon MD Objective Remarks GENERAL: alert, Oriented x 3, NAD. SKIN: Warm and dry. HEAD: Normocephalic. EYES: No scleral icterus. No injection or drainage. NECK: Supple, trachea midline. No JVD or lymphadenopathy. CARDIOVASCULAR: Regular rate and rhythm without murmurs, gallops, or rubs. RESPIRATORY: Breath sounds equal bilaterally. No accessory muscle use. GASTROINTESTINAL: Abdomen soft, non-tender, nondistended. MUSCULOSKELETAL: No cyanosis, or edema. BACK: Nontender without obvious deformity. No CVA tenderness. Procedures none A/P Problem List: (1) TIA (transient ischemic attack) ICD Code: G45.9 - Transient cerebral ischemic attack, unspecified Status: Acute (2) Cervical stenosis of spinal canal ICD Code: M48.02 - Spinal stenosis, cervical region (3) Dislocation of C2/C3 cervical vertebrae ICD Code: S13.131A - Dislocation of C2/C3 cervical vertebrae, initial encounter Assessment and Plan Mr. Shin is a pleasant 71 year old male who came to the hospital due to left sided weakness, numbness. Neurology evaluated patient. Imaging studies indicated C2-3 disc protrusion with severe canal stenosis and compression of gthe cord to an AP diameter of 2 or 3 mm. Neurosurgery evaluated patient and recommended surgery. - C2-3 disc protrusion - Severe cervical spinal canal stenosis - Patient's INR was 2.5 today. - Discussed with Dr. Carlson who would like to take patient to surgery later this afternoon. - Will get STAT type and match and provide patient one unit of FFP and Vitamin K 2.5mg - PT/INR after FFP is given. - Atrial fibrillation - Hyperlipidemia - Continue carvedilol 25 mg twice a day, diltiazem 360 mg by mouth daily. - Patient is on Coumadin for anticoagulation. Discussed with patient regarding one of the newer medications such as apixaban or Edoxaban. - Patient will discuss with his raw material handler regarding Apixaban or Edoxaban for Afib anti-coagulation. - Continue pravastatin 40 mg daily at bedtime. - Diabetes mellitus -Hemoglobin A1c 8.7. Continue Levemir 22 units daily at bedtime, sliding scale insulin. Full code. Warfarin (currently on hold), INR today 2.5. Start anti-coagulation per Neurosurgery recommendations. Makenna Monahan DO Mar 15, 2017 12:41 pm
[2017-03-15] MEDS ORDERED: DEXTROSE 50% IN WATER 50 ML VIAL(D50) IV PUSH PRN (14:45)
[2017-03-15] MEDS ORDERED: GLUCAGON 1 MG/ML VIAL OTHER PRN (14:45)
--- NOTE | 2017-03-15 17:05 | HHI.NSPN ---
(Melchor Daniel) History Chief Complaint: None ([place],Melchor MCKEON) Interval History 03/14: 71 yo male states left upper greater than lE numbnes, weakness, loss of coordination starting last Monday and lasting 2 days. No KERR, nausea, fever. Sent to ER by his tip stitcher today for above symptoms 03/15: When seen this afternoon the patient is awake and watching TV with his . He states that he is doing good. He denied any headache, dizziness, and any pain, numbness or tingling to the extremities. Patient was receiving fresh frozen plasma and has received oral phytonadione for his elevated INR. (Melchor Daniel) Exam Results 03/13/17 03/13/17 03/14/17 03/14/17 03/15/17 03/15/17 06:00 18:00 06:00 18:00 06:00 18:00 Intake Total 225 ml 1000 ml 5 ml Balance 225 ml 1000 ml 5 ml Intake Oral 225 ml 0 ml IV Total 1000 ml Blood Product IV Normal Saline Flush 5 ml # Voids 1 # Bowel Movements 0 Vital Signs Date Time Temp Pulse Resp B/P (MAP) Pulse Ox O2 Delivery O2 Flow Rate FiO2 03/15/17 16:00 97.4 81 18 132/68 (89) 98 03/15/17 13:40 97.1 87 18 144/71 98 03/15/17 12:00 97.1 87 18 144/71 (95) 98 03/15/17 08:00 97.1 81 18 136/72 (93) 98 03/15/17 04:09 97.2 84 18 154/71 (98) 99 03/15/17 03:45 68 03/15/17 03:11 Room Air 03/15/17 01:56 97.4 87 18 170/78 (108) 99 03/15/17 00:20 87 03/14/17 22:24 98.4 85 18 153/80 (104) 98 03/14/17 16:11 84 03/14/17 12:16 101 03/14/17 10:50 95.5 102 18 154/86 (108) 100 03/14/17 07:56 102 03/14/17 07:27 96.1 103 18 187/90 (122) 99 03/14/17 05:17 98.2 110 18 147/96 (113) 100 03/13/17 20:49 98.5 92 18 185/84 (117) 99 03/13/17 19:01 89 03/13/17 17:40 03/13/17 17:36 60 18 181/82 (115) 99 Room Air 03/13/17 13:28 99.1 90 20 165/73 (103) 99 Room Air (Melchor Daniel) Physical Examination GENERAL: Awake & alert, watching TV with , affect normal, no evident distress. SKIN: Warm, dry & intact. HEENT: Normocephalic, atraumatic. NECK: Midline cervical spine NTTP, no JVD, trachea midline. MUSCULOSKELETAL: WESLEY w/o difficulty, NTTP, no evident clubbing or deformity. Thoracolumbar spine NTTP. NEUROLOGIC: AAOx3. Speech clear & appropriate. Follows commands w/o difficulty. Sensation intact to light touch to all extremities. Motor strength is 5/5 to all major flexion & extension muscle groups except for the left extensor hallucis longus is 3 to 3+/5. (Melchor Daniel) Lab, Micro, Other Results Recent Impressions Chest X-Ray 03/14/17 0000 Signed Impressions: Service Date/Time: Tuesday, March 14, 2017 16:20 - CONCLUSION: No acute cardiopulmonary process. Klaus Maria MD Cervical Spine MRI 03/14/17 0000 Signed Impressions: Service Date/Time: Tuesday, March 14, 2017 09:28 - CONCLUSION: 1. At C2-3 there is a large central disc protrusion with severe canal stenosis and compression of the cord to an AP diameter of 2 or 3 mm. There is myelomalacia of the cord below this level to the C5-6 level. Previous fusion C3-4-5 as above. Raman Mcmahon MD Head CT 03/13/17 1341 Signed Impressions: Service Date/Time: Monday, March 13, 2017 14:52 - CONCLUSION: Negative for an acute process. Richard Alvarez MD FACR Head Magnetic Resonance Angiography 03/13/17 0000 Signed Impressions: Service Date/Time: Monday, March 13, 2017 17:47 - CONCLUSION: Normal examination for a patient of this age. Raman Mcmahon MD Cervical Spine CT 03/13/17 0000 Signed Impressions: Service Date/Time: Monday, March 13, 2017 16:25 - CONCLUSION: 1. Anterior fixation at C3-5 with near-complete bony fusion. 2. Adjacent level disease at C2-3 with diffuse disc bulge and uncovertebral osteophytes resulting in severe spinal canal stenosis. Rajeev Altamirano MD Carotid Artery Ultrasound 03/13/17 0000 Signed Impressions: Service Date/Time: Monday, March 13, 2017 18:48 - CONCLUSION: 1. Minimal plaque visualized without hemodynamically significant stenosis. Raman Mcmahon MD Brain MRI 03/13/17 0000 Signed Impressions: Service Date/Time: Monday, March 13, 2017 17:47 - CONCLUSION: 1. Mild white matter ischemic changes. No recent infarct. No mass, hemorrhage or shift. Raman Mcmahon MD Laboratory Tests Test 03/13/17 14:07 03/14/17 04:16 03/14/17 10:25 03/15/17 05:55 White Blood Count 6.2 TH/MM3 Red Blood Count 4.23 MIL/MM3 Hemoglobin 12.0 GM/DL Hematocrit 35.5 % Mean Corpuscular Volume 84.0 FL Mean Corpuscular Hemoglobin 28.3 PG Mean Corpuscular Hemoglobin Concent 33.7 % Red Cell Distribution Width 14.8 % Platelet Count 267 TH/MM3 Mean Platelet Volume 9.0 FL Neutrophils (%) (Auto) 43.7 % Lymphocytes (%) (Auto) 37.8 % Monocytes (%) (Auto) 12.5 % Eosinophils (%) (Auto) 4.9 % Basophils (%) (Auto) 1.1 % Neutrophils # (Auto) 2.7 TH/MM3 Lymphocytes # (Auto) 2.4 TH/MM3 Monocytes # (Auto) 0.8 TH/MM3 Eosinophils # (Auto) 0.3 TH/MM3 Basophils # (Auto) 0.1 TH/MM3 CBC Comment DIFF FINAL Differential Comment Prothrombin Time 34.1 SEC 30.4 SEC 24.8 SEC Prothromb Time International Ratio 3.4 RATIO 3.0 RATIO 2.5 RATIO Activated Partial Thromboplast Time 39.3 SEC Blood Urea Nitrogen 49 MG/DL 43 MG/DL Creatinine 3.18 MG/DL 2.53 MG/DL Random Glucose 188 MG/DL 81 MG/DL Total Protein 8.2 GM/DL Albumin 3.3 GM/DL Calcium Level 8.6 MG/DL 8.8 MG/DL Alkaline Phosphatase 77 U/L Aspartate Amino Transf (AST/SGOT) 30 U/L Alanine Aminotransferase (ALT/SGPT) 42 U/L Total Bilirubin 0.2 MG/DL Sodium Level 139 MEQ/L 138 MEQ/L Potassium Level 4.9 MEQ/L 4.3 MEQ/L Chloride Level 111 MEQ/L 109 MEQ/L Carbon Dioxide Level 21.0 MEQ/L 20.4 MEQ/L Anion Gap 7 MEQ/L 9 MEQ/L Estimat Glomerular Filtration Rate 24 ML/MIN 31 ML/MIN Hemoglobin A1c 8.7 % Troponin I LESS THAN 0.02 NG/ML Triglycerides Level 210 MG/DL Cholesterol Level 190 MG/DL LDL Cholesterol 108 MG/DL HDL Cholesterol 39.6 MG/DL Cholesterol/HDL Ratio 4.79 RATIO Magnesium Level 1.8 MG/DL (Melchor Daniel) Medical Decision Making Impression and Plan Impression: 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 Reviewed labs for today. INR 2.5. Decreased renal function although improved from yesterday. Plan: The patient was to go for a C2-3 ACDF which has been postponed due to Dr Carlson having an emergent surgery which will allow for further medical optimisation. 1800 calorie ADA diet. (Melchor Daniel) Attending Statement The exam, history, and the medical decision-making described in the above note were completed with the assistance of the mid-level provider. I reviewed and agree with the findings presented. I attest that I had a [id number] encounter with the patient on the same day, and personally performed and documented my assessment and findings in the medical record. Patient discussed with medicine service today. He is receiving FFP, vitamin K prior to surgery with follow-up coagulation profile in the morning. We will reschedule surgery to 03/17/2017 to allow for optimization of coagulation and medical status prior surgery since he is otherwise neurologically stable. (Anjel Carlson MD) Melchor Daniel Mar 15, 2017 17:05 Anjel Carlson MD Mar 15, 2017 21:24
[2017-03-15 18:52] LABS: INTERNATIONAL NORMALIZED RATIO 1.7 RATIO
[2017-03-15] MEDS: INSULIN DETEMIR 100 UNITS/ML VIAL SQ SCH (21:46)
[2017-03-15] MEDS: PRAVASTATIN SOD 40 MG TAB PO SCH (21:47)
[2017-03-16] VITALS (9 sets, daily range): BP systolic 114–171; BP diastolic 69–93; PULSE 80–90; RESP 16–18; TEMP 97.1–98.5; O2SAT 96–100
[2017-03-16 05:20] LABS: INTERNATIONAL NORMALIZED RATIO 1.4 RATIO; PROTHROMBIN TIME - PATIENT 14.4 SEC (9.8-11.6)
[2017-03-16] MEDS: FERROUS SULFATE 325 MG (65 MG ELEMENTAL IRON) TAB PO SCH ×2 (07:32→17:19)
[2017-03-16] MEDS: CARVEDILOL 12.5 MG TAB PO SCH ×2 (07:32→21:17)
[2017-03-16] MEDS: DILTIAZEM-CD 180 MG CAP ER PO SCH (07:32)
[2017-03-16] MEDS: LORATADINE 10 MG TAB PO SCH (07:33)
[2017-03-16] MEDS: PANTOPRAZOLE SOD 20 MG DELAYED RELEASE TAB PO SCH (07:33)
[2017-03-16] MEDS: INSULIN ASPART SUPPLEMENTAL SCALE SQ SCH ×4 (08:00→21:18)
[2017-03-16] MEDS: SODIUM CHLORIDE 0.9% FLUSH 10 ML FLUSH IV FLUSH SCH ×2 (09:00→21:17)
--- NOTE | 2017-03-16 09:38 | HHI.PR ---
Review/Management Diagnosis/Plan: (1) Cervical spondylolysis ICD Codes: M43.02 - Spondylolysis, cervical region Status: Chronic Plan: C2,3 cord compression recs decompression per nsx inr 1.4 neuro exam stable (2) DM neuropathies ICD Codes: E11.40 - Type 2 diabetes mellitus with diabetic neuropathy, unspecified Status: Chronic (3) CKD (chronic kidney disease) ICD Codes: N18.9 - Chronic kidney disease, unspecified Status: Chronic Plan: bp/dm control (4) HTN (hypertension) ICD Codes: I10 - Essential (primary) hypertension Status: Chronic Plan: bp meds Subjective Subjective Comments No acute events reported No headache No chest pain No dyspnea Active Medications Current Medications Medications (Trade) Dose Ordered Sig/Floyd Route Start Time Stop Time Status Last Admin (NS Flush) 2 ml BID IV FLUSH 03/13/17 21:00 03/15/17 21:46 (NS Flush) 2 ml UNSCH PRN IV FLUSH 03/13/17 17:00 (Levemir Inj) 22 units HS SQ 03/13/17 21:00 03/15/17 21:46 (Protonix) 20 mg DAILY PO 03/14/17 09:00 03/16/17 07:33 (Coreg) 25 mg BID PO 03/14/17 09:00 03/16/17 07:32 (Cardizem Cd) 360 mg DAILY PO 03/14/17 09:00 03/16/17 07:32 (Ferrous Sulfate) 325 mg BIDPC PO 03/14/17 09:00 03/16/17 07:32 (Claritin) 10 mg DAILY PO 03/14/17 09:00 03/15/17 09:00 (Pravachol) 40 mg HS PO 03/14/17 21:00 03/15/17 21:47 Lactated Ringer's 1,000 ml @ 30 mls/hr Q24H PRN IV 03/15/17 02:00 03/18/17 01:59 03/15/17 04:31 Sodium Chloride 500 ml @ 30 mls/hr [id number] PRN IV 03/15/17 02:00 03/18/17 01:59 (Lopressor) 25 mg [employer]ER PRN PO 03/15/17 02:00 03/18/17 01:59 (Betadine 5% Antisepsis Kit) 1 applic [employer] PRN EACH NARE 03/15/17 02:00 03/18/17 01:59 (Chlorhexidine 2% Cloth) 3 pack [employer] PRN TOPICAL 03/15/17 02:00 03/18/17 01:59 (Tylenol) 650 mg Q4H PRN PO 03/15/17 12:00 (Benadryl) 25 mg Q4H PRN PO 03/15/17 12:00 (D50w (Vial) Inj) 50 ml UNSCH PRN IV PUSH 03/15/17 14:45 (Glucagon Inj) 1 mg UNSCH PRN OTHER 03/15/17 14:45 (NovoLOG SUPPLEMENTAL SCALE) 1 ACHS SLIDING SCALE SQ 03/15/17 17:00 Allergies Allergies Coded Allergies latex (Unverified Allergy, Unknown, Swelling, 03/13/17) Review of Systems All other ROS: ROS reviewed as documented in chart Exam I&O / VS 03/16/17 03/16/17 03/17/17 15:00 23:00 07:00 Intake Total 480 ml Output Total 550 ml Balance -70 ml Intake Oral 480 ml Output Urine Total 550 ml # Bowel Movements 0 Vital Signs Date Time Temp Pulse Resp B/P (MAP) Pulse Ox O2 Delivery O2 Flow Rate FiO2 03/16/17 04:30 80 03/16/17 04:10 97.1 88 16 171/93 (119) 97 03/16/17 00:15 84 03/15/17 22:15 97 Room Air 03/15/17 21:10 97.9 88 17 167/88 (114) 97 03/15/17 20:20 97.7 85 16 164/79 (107) 97 03/15/17 20:00 90 03/15/17 17:00 97.1 87 18 119/69 99 03/15/17 16:00 97.4 81 18 132/68 (89) 98 03/15/17 13:40 97.1 87 18 144/71 98 03/15/17 12:00 97.1 87 18 144/71 (95) 98 General: Alert and Oriented, No acute distress Eye: EOMI Respiratory: Non-labored respirations Neurologic: Alert, Oriented, CN II-XII intact, Normal DTR's Psychiatric: Cooperative, Appropriate mood & affect Exam Comments ox 3, no aphasia, articulate, follows, eomi, ou 3-2mm, no drift, no focal weakness, minimal rt ue dystaxia, tahir le reduced pin stocking, msr 2+ at kj,aj. ue 1+ tr, bi/br tr, no clonus, planter flexor Objective Micro and Labs Laboratory Tests Test 03/15/17 18:18 03/16/17 04:40 Prothrombin Time 17.0 14.4 Prothromb Time International Ratio 1.7 1.4 Problem Qualifiers (1) HTN (hypertension): Qualified Codes: I10 - Essential (primary) hypertension Alex Huffman MD Mar 16, 2017 09:38
--- NOTE | 2017-03-16 17:55 | HHI.PR ---
Subjective Remarks Patient denies cp/sob. denies headache. Objective Vitals Vital Signs Date Time Temp Pulse Resp B/P (MAP) Pulse Ox O2 Delivery O2 Flow Rate FiO2 03/16/17 12:00 97.6 80 18 121/72 (88) 100 03/16/17 08:00 97.6 86 18 156/85 (108) 98 03/16/17 07:30 86 03/16/17 04:30 80 03/16/17 04:10 97.1 88 16 171/93 (119) 97 03/16/17 00:15 84 03/15/17 22:15 97 Room Air 03/15/17 21:10 97.9 88 17 167/88 (114) 97 03/15/17 20:20 97.7 85 16 164/79 (107) 97 03/15/17 20:00 90 I/O 03/15/17 03/15/17 03/15/17 03/16/17 03/16/17 03/16/17 07:00 15:00 23:00 07:00 15:00 23:00 Intake Total 1000 ml 5 ml 1136 ml 480 ml Output Total 400 ml 550 ml Balance 1000 ml 5 ml 736 ml -70 ml Intake Oral 0 ml 800 ml 480 ml IV Total 1000 ml FFP 336 ml Blood Product IV Normal Saline Flush 5 ml Output Urine Total 400 ml 550 ml # Voids 1 4 # Bowel Movements 0 2 0 Result Diagram: 03/13/17 1407 03/15/17 0555 Imaging Last Impressions Chest X-Ray 03/14/17 0000 Signed Impressions: Service Date/Time: Tuesday, March 14, 2017 16:20 - CONCLUSION: No acute cardiopulmonary process. Klaus Maria MD Cervical Spine MRI 03/14/17 0000 Signed Impressions: Service Date/Time: Tuesday, March 14, 2017 09:28 - CONCLUSION: 1. At C2-3 there is a large central disc protrusion with severe canal stenosis and compression of the cord to an AP diameter of 2 or 3 mm. There is myelomalacia of the cord below this level to the C5-6 level. Previous fusion C3-4-5 as above. Raman Mcmahon MD Head CT 03/13/17 1341 Signed Impressions: Service Date/Time: Monday, March 13, 2017 14:52 - CONCLUSION: Negative for an acute process. Richard Alvarez MD FACR Head Magnetic Resonance Angiography 03/13/17 0000 Signed Impressions: Service Date/Time: Monday, March 13, 2017 17:47 - CONCLUSION: Normal examination for a patient of this age. Raman Mcmahon MD Cervical Spine CT 03/13/17 0000 Signed Impressions: Service Date/Time: Monday, March 13, 2017 16:25 - CONCLUSION: 1. Anterior fixation at C3-5 with near-complete bony fusion. 2. Adjacent level disease at C2-3 with diffuse disc bulge and uncovertebral osteophytes resulting in severe spinal canal stenosis. Rajeev Altamirano MD Carotid Artery Ultrasound 03/13/17 0000 Signed Impressions: Service Date/Time: Monday, March 13, 2017 18:48 - CONCLUSION: 1. Minimal plaque visualized without hemodynamically significant stenosis. Raman Mcmahon MD Brain MRI 03/13/17 0000 Signed Impressions: Service Date/Time: Monday, March 13, 2017 17:47 - CONCLUSION: 1. Mild white matter ischemic changes. No recent infarct. No mass, hemorrhage or shift. Raman Mcmahon MD Objective Remarks GENERAL: alert, Oriented x 3, NAD. SKIN: Warm and dry. HEAD: Normocephalic. EYES: No scleral icterus. No injection or drainage. NECK: Supple, trachea midline. No JVD or lymphadenopathy. CARDIOVASCULAR: Regular rate and rhythm without murmurs, gallops, or rubs. RESPIRATORY: Breath sounds equal bilaterally. No accessory muscle use. GASTROINTESTINAL: Abdomen soft, non-tender, nondistended. MUSCULOSKELETAL: No cyanosis, or edema. BACK: Nontender without obvious deformity. No CVA tenderness. Procedures none A/P Problem List: (1) TIA (transient ischemic attack) ICD Code: G45.9 - Transient cerebral ischemic attack, unspecified Status: Acute (2) Cervical stenosis of spinal canal ICD Code: M48.02 - Spinal stenosis, cervical region (3) Dislocation of C2/C3 cervical vertebrae ICD Code: S13.131A - Dislocation of C2/C3 cervical vertebrae, initial encounter Assessment and Plan Mr. Shin is a pleasant 71 year old male who came to the hospital due to left sided weakness, numbness. Neurology evaluated patient. Imaging studies indicated C2-3 disc protrusion with severe canal stenosis and compression of gthe cord to an AP diameter of 2 or 3 mm. Neurosurgery evaluated patient and recommended surgery. - C2-3 disc protrusion - Severe cervical spinal canal stenosis - Discussed with Dr. Carlson who would like to take patient to surgery later this afternoon. - Will get STAT type and match and provide patient one unit of FFP and Vitamin K 2.5mg - PT/INR after FFP is given. - 03/16 INR is 1.4 after FFP. for Or in am as per neurosurgery documentation. - Atrial fibrillation - Hyperlipidemia - Continue carvedilol 25 mg twice a day, diltiazem 360 mg by mouth daily. - Patient is on Coumadin for anticoagulation. Discussed with patient regarding one of the newer medications such as apixaban or Edoxaban. - Patient will discuss with his defense attorney regarding Apixaban or Edoxaban for Afib anti-coagulation. - Continue pravastatin 40 mg daily at bedtime. - Hold coumadin for procedure. - Diabetes mellitus -Hemoglobin A1c 8.7. Continue Levemir 22 units daily at bedtime, sliding scale insulin. - CINTHIA on CKD stage III -Creatinine admission was 3.1, trended to 2.5. As per review of records creatinine in 2015 2.5. Likely at baseline. Continue to monitor BUN/creatinine , avoid nephrotoxins, monitor strict I's and O's. - CINTHIA seems to have resolved. Full code. Warfarin (currently on hold), INR today 2.5. Start anti-coagulation per Neurosurgery recommendations. Francois Montes MD Mar 16, 2017 17:55
--- NOTE | 2017-03-16 17:57 | HHI.NSPN ---
(Melchor Daniel) History Chief Complaint: None (Melchor Daniel) Interval History 03/14: 71 yo male states left upper greater than lE numbnes, weakness, loss of coordination starting last Monday and lasting 2 days. No KERR, nausea, fever. Sent to ER by his control tower operator today for above symptoms 03/15: When seen this afternoon the patient is awake and watching TV with his . He states that he is doing good. He denied any headache, dizziness, and any pain, numbness or tingling to the extremities. Patient was receiving fresh frozen plasma and has received oral phytonadione for his elevated INR. 03/16: This afternoon the patient is awake and watching TV with his . He says he is doing good and he had no complaints. (Melchor Daniel) Exam Results 03/14/17 03/14/17 03/15/17 03/15/17 03/16/17 03/16/17 06:00 18:00 06:00 18:00 06:00 18:00 Intake Total 225 ml 1000 ml 661 ml 480 ml 480 ml Output Total 400 ml 550 ml Balance 225 ml 1000 ml 661 ml 80 ml -70 ml Intake Oral 225 ml 320 ml 480 ml 480 ml IV Total 1000 ml FFP 336 ml Blood Product IV Normal Saline Flush 5 ml Output Urine Total 400 ml 550 ml # Voids 4 1 # Bowel Movements 1 1 0 Vital Signs Date Time Temp Pulse Resp B/P (MAP) Pulse Ox O2 Delivery O2 Flow Rate FiO2 03/16/17 12:00 97.6 80 18 121/72 (88) 100 03/16/17 08:00 97.6 86 18 156/85 (108) 98 03/16/17 07:30 86 03/16/17 04:30 80 03/16/17 04:10 97.1 88 16 171/93 (119) 97 03/16/17 00:15 84 03/15/17 22:15 97 Room Air 03/15/17 21:10 97.9 88 17 167/88 (114) 97 03/15/17 20:20 97.7 85 16 164/79 (107) 97 03/15/17 20:00 90 03/15/17 17:00 97.1 87 18 119/69 99 03/15/17 16:00 97.4 81 18 132/68 (89) 98 03/15/17 13:40 97.1 87 18 144/71 98 03/15/17 12:00 97.1 87 18 144/71 (95) 98 03/15/17 08:00 97.1 81 18 136/72 (93) 98 03/15/17 04:09 97.2 84 18 154/71 (98) 99 03/15/17 03:45 68 03/15/17 03:11 Room Air 03/15/17 01:56 97.4 87 18 170/78 (108) 99 03/15/17 00:20 87 03/14/17 22:24 98.4 85 18 153/80 (104) 98 03/14/17 16:11 84 03/14/17 12:16 101 03/14/17 10:50 95.5 102 18 154/86 (108) 100 03/14/17 07:56 102 03/14/17 07:27 96.1 103 18 187/90 (122) 99 03/14/17 05:17 98.2 110 18 147/96 (113) 100 03/13/17 20:49 98.5 92 18 185/84 (117) 99 03/13/17 19:01 89 03/13/17 17:40 (Melchor Daniel) Physical Examination GENERAL: Awake & alert, watching TV with , affect normal, no evident distress. SKIN: Warm, dry & intact. HEENT: Normocephalic, atraumatic. NECK: Midline cervical spine NTTP, no JVD, trachea midline. RESPIRATORY: CTAB w/o W/R/R, equal excursion, nonlaboured, on RA. CARDIOVASCULAR: S1S2 w/RRR w/o M/G/R. No pedal edema. GASTROINTESTINAL: Abdomen rotund, soft, nontender, bowel sound positive. MUSCULOSKELETAL: WESLEY w/o difficulty, NTTP, no evident clubbing or deformity. Thoracolumbar spine NTTP. NEUROLOGIC: AAOx3. Speech clear & appropriate. Follows commands w/o difficulty. Sensation intact to light touch to all extremities. Motor strength is 5/5 to all major flexion & extension muscle groups to include hand intrinsics & extrinsics except for the left extensor hallucis longus is 3 to 3+/5. (Melchor Daniel) Physical Examination Alert and awake Speech clear & appropriate. Follows commands w/o difficulty. Sensation intact to light touch to all extremities. Motor strength is 5/5 to all major flexion & extension muscle groups to include hand intrinsics & extrinsics except for the left extensor hallucis longus is 3 to 3+/5. GENERAL: Awake & alert, watching TV with , affect normal, no evident distress. SKIN: Warm, dry & intact. HEENT: Normocephalic, atraumatic. NECK: Midline cervical spine NTTP, no JVD, trachea midline. RESPIRATORY: CTAB w/o W/R/R, equal excursion, nonlaboured, on RA. CARDIOVASCULAR: S1S2 w/RRR w/o M/G/R. No pedal edema. GASTROINTESTINAL: Abdomen rotund, soft, nontender, bowel sound positive. MUSCULOSKELETAL: WESLEY w/o difficulty, NTTP, no evident clubbing or deformity. Thoracolumbar spine NTTP. (Abdias Bingham MD) Lab, Micro, Other Results Recent Impressions Chest X-Ray 03/14/17 0000 Signed Impressions: Service Date/Time: Tuesday, March 14, 2017 16:20 - CONCLUSION: No acute cardiopulmonary process. Klaus Maria MD Cervical Spine MRI 03/14/17 0000 Signed Impressions: Service Date/Time: Tuesday, March 14, 2017 09:28 - CONCLUSION: 1. At C2-3 there is a large central disc protrusion with severe canal stenosis and compression of the cord to an AP diameter of 2 or 3 mm. There is myelomalacia of the cord below this level to the C5-6 level. Previous fusion C3-4-5 as above. Raman Mcmahon MD Laboratory Tests Test 03/14/17 04:16 03/14/17 10:25 03/15/17 05:55 03/15/17 18:18 Triglycerides Level 210 MG/DL Cholesterol Level 190 MG/DL LDL Cholesterol 108 MG/DL HDL Cholesterol 39.6 MG/DL Cholesterol/HDL Ratio 4.79 RATIO Prothrombin Time 30.4 SEC 24.8 SEC 17.0 SEC Prothromb Time International Ratio 3.0 RATIO 2.5 RATIO 1.7 RATIO Blood Urea Nitrogen 43 MG/DL Creatinine 2.53 MG/DL Random Glucose 81 MG/DL Calcium Level 8.8 MG/DL Magnesium Level 1.8 MG/DL Sodium Level 138 MEQ/L Potassium Level 4.3 MEQ/L Chloride Level 109 MEQ/L Carbon Dioxide Level 20.4 MEQ/L Anion Gap 9 MEQ/L Estimat Glomerular Filtration Rate 31 ML/MIN Test 03/16/17 04:40 Prothrombin Time 14.4 SEC Prothromb Time International Ratio 1.4 RATIO (Melchor Daniel) Medical Decision Making Impression and Plan Impression: 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 Reviewed labs for today. INR 1.4. Plan: Discussed plan of care with patient & . Plan is to take the patient tomorrow for a C2-3 ACDF. NPO after midnight. Normal saline infusion at 100 mL/hr in the AM. (Melchor Daniel) Attending Statement Neuro. Continue neuro checks in a serial fashion. Pulmonary. Continue aggressive pulmonary toilette, nasotracheal suction, and breathing treatments with nebulizers. Daily PT and OT Nutrition. Tolerating Oral diet Renal. Continue to monitor closely urine output, BUN and creatinine Endocrine. Continue to Monitor serial Acu checks and SSI as needed in detail ID continue to monitor for signs of infection Continue Protonix for stress ulcer prophylaxis Continue Emanuel hose and SCD's for DVT prophylaxis The exam, history, and the medical decision-making described in the above note were completed with the assistance of the mid-level provider. I reviewed and agree with the findings presented. I attest that I had a [id number] encounter with the patient on the same day, and personally performed and documented my assessment and findings in the medical record. (Abdias Bingham MD) Melchor Daniel Mar 16, 2017 17:57 Abdias Bingham MD Mar 20, 2017 10:37
[2017-03-16] MEDS: PRAVASTATIN SOD 40 MG TAB PO SCH (21:17)
[2017-03-16] MEDS: INSULIN DETEMIR 100 UNITS/ML VIAL SQ SCH (21:17)
[2017-03-17] VITALS (9 sets, daily range): BP systolic 126–167; BP diastolic 70–86; PULSE 75–94; RESP 15–20; TEMP 96.8–97.8; O2SAT 94–100
[2017-03-17 06:16] LABS: INTERNATIONAL NORMALIZED RATIO 1.2 RATIO; PROTHROMBIN TIME - PATIENT 12.4 SEC (9.8-11.6)
[2017-03-17 06:31] LABS: BICARBONATE 21.5 MEQ/L (21.0-32.0); CALCIUM 8.7 MG/DL (8.5-10.1); CREATININE 2.9 MG/DL (0.60-1.30)
[2017-03-17] MEDS ORDERED: GELFOAM SIZE 100 ONE (07:07)
[2017-03-17] MEDS ORDERED: GENTAMICIN SULFATE 80 MG/2 ML VIAL ONE (07:07)
[2017-03-17] MEDS ORDERED: THROMBIN (TOPICAL) 5,000 UNIT VIAL ONE (07:07)
[2017-03-17] MEDS ORDERED: LIDOCAINE 0.5%/EPINEPHrine 1:200,000 SOLN 50 ML VIAL ONE (07:07)
[2017-03-17] MEDS: INSULIN ASPART SUPPLEMENTAL SCALE SQ SCH ×4 (08:00→20:31)
[2017-03-17] MEDS: FERROUS SULFATE 325 MG (65 MG ELEMENTAL IRON) TAB PO SCH ×2 (09:00→18:00)
[2017-03-17] MEDS: LORATADINE 10 MG TAB PO SCH (09:00)
[2017-03-17] MEDS: PANTOPRAZOLE SOD 20 MG DELAYED RELEASE TAB PO SCH (09:08)
[2017-03-17] MEDS: DILTIAZEM-CD 180 MG CAP ER PO SCH (09:08)
[2017-03-17] MEDS: CARVEDILOL 12.5 MG TAB PO SCH ×2 (09:08→19:46)
[2017-03-17] MEDS: SODIUM CHLORIDE 0.9% FLUSH 10 ML FLUSH IV FLUSH SCH ×2 (09:12→19:48)
[2017-03-17] MEDS: SODIUM CHLOR 0.9% 1000 ML INJ 1,000 ML IV SCH ×2 (10:00→17:55)
[2017-03-17] MEDS ORDERED: fentaNYL CITRATE 250 MCG/5 ML AMP ONE (10:38)
[2017-03-17] MEDS ORDERED: KETAMINE HCL 500 MG/5 ML VIAL ONE (10:38)
[2017-03-17] MEDS ORDERED: PROPOFOL 200 MG/20 ML AMP ONE (10:39)
[2017-03-17] MEDS ORDERED: ceFAZolin 2 GM PREMIX 50 ML IV ONE (11:18)
[2017-03-17] MEDS ORDERED: PROPOFOL 500 MG/50 ML INJ 100 ML ONE (13:42)
--- NOTE | 2017-03-17 14:38 | HHI.PR ---
Subjective Remarks patient seen earlier today at 9:30 AM. denies cp/sob. afebrile denies headache, nausea or vomiting Objective Vitals Vital Signs Date Time Temp Pulse Resp B/P (MAP) Pulse Ox O2 Delivery O2 Flow Rate FiO2 03/17/17 08:00 Room Air 03/17/17 08:00 96.8 94 16 146/72 (96) 100 03/17/17 03:05 97.8 86 16 157/76 (103) 97 03/17/17 01:11 97.0 86 16 126/70 (88) 100 03/16/17 20:50 97.5 90 17 114/69 (84) 96 03/16/17 19:33 89 03/16/17 16:00 98.5 82 18 140/75 (96) 100 I/O 03/16/17 03/16/17 03/16/17 03/17/17 03/17/17 03/17/17 07:00 15:00 23:00 07:00 15:00 23:00 Intake Total 1080 ml 240 ml Output Total 550 ml 200 ml Balance 530 ml 40 ml Intake Oral 1080 ml 240 ml Output Urine Total 550 ml 200 ml # Voids 3 # Bowel Movements 0 0 Result Diagram: 03/13/17 1407 03/17/17 0420 Objective Remarks GENERAL: alert, Oriented x 3, NAD. SKIN: Warm and dry. HEAD: Normocephalic. EYES: No scleral icterus. No injection or drainage. NECK: Supple, trachea midline. No JVD or lymphadenopathy. CARDIOVASCULAR: Regular rate and rhythm without murmurs, gallops, or rubs. RESPIRATORY: Breath sounds equal bilaterally. No accessory muscle use. GASTROINTESTINAL: Abdomen soft, non-tender, nondistended. MUSCULOSKELETAL: No cyanosis, or edema. BACK: Nontender without obvious deformity. No CVA tenderness. Procedures none Medications and IVs Current Medications Medications (Trade) Dose Ordered Sig/Floyd Route Start Time Stop Time Status Last Admin (NS Flush) 2 ml BID IV FLUSH 03/13/17 21:00 03/17/17 09:12 (NS Flush) 2 ml UNSCH PRN IV FLUSH 03/13/17 17:00 (Levemir Inj) 22 units HS SQ 03/13/17 21:00 03/16/17 21:17 (Protonix) 20 mg DAILY PO 03/14/17 09:00 03/17/17 09:08 (Coreg) 25 mg BID PO 03/14/17 09:00 03/17/17 09:08 (Cardizem Cd) 360 mg DAILY PO 03/14/17 09:00 03/17/17 09:08 (Ferrous Sulfate) 325 mg BIDPC PO 03/14/17 09:00 03/16/17 17:19 (Claritin) 10 mg DAILY PO 03/14/17 09:00 03/15/17 09:00 (Pravachol) 40 mg HS PO 03/14/17 21:00 03/16/17 21:17 Lactated Ringer's 1,000 ml @ 30 mls/hr Q24H PRN IV 03/15/17 02:00 03/18/17 01:59 03/15/17 04:31 Sodium Chloride 500 ml @ 30 mls/hr [id number] PRN IV 03/15/17 02:00 03/18/17 01:59 (Lopressor) 25 mg TYPE PHOTOGRAPHY SUPERVISOR PRN PO 03/15/17 02:00 03/18/17 01:59 (Betadine 5% Antisepsis Kit) 1 applic TYPE PHOTOGRAPHY SUPERVISOR PRN EACH NARE 03/15/17 02:00 03/18/17 01:59 (Chlorhexidine 2% Cloth) 3 pack TYPE PHOTOGRAPHY SUPERVISOR PRN TOPICAL 03/15/17 02:00 03/18/17 01:59 (Tylenol) 650 mg Q4H PRN PO 03/15/17 12:00 (Benadryl) 25 mg Q4H PRN PO 03/15/17 12:00 (D50w (Vial) Inj) 50 ml UNSCH PRN IV PUSH 03/15/17 14:45 (Glucagon Inj) 1 mg UNSCH PRN OTHER 03/15/17 14:45 (NovoLOG SUPPLEMENTAL SCALE) 1 ACHS SLIDING SCALE SQ 03/15/17 17:00 03/16/17 21:18 Sodium Chloride 1,000 ml @ 100 mls/hr Q10H IV 03/17/17 08:00 03/17/17 17:55 Miscellaneous Information ALL NURSING DEPARTME... UNSCH PRN .XX 03/17/17 16:20 03/18/17 16:19 (Critz 5-325 Mg) 1 tab Q4H PRN PO 03/17/17 17:00 (Critz 10-325 Mg) 1 tab Q4H PRN PO 03/17/17 17:00 (Morphine Inj) 4 mg Q3H PRN IV PUSH 03/17/17 17:00 (Narcan Inj) 0.4 mg UNSCH PRN IV PUSH 03/17/17 17:00 A/P Problem List: (1) TIA (transient ischemic attack) ICD Code: G45.9 - Transient cerebral ischemic attack, unspecified Status: Acute (2) Cervical stenosis of spinal canal ICD Code: M48.02 - Spinal stenosis, cervical region (3) Dislocation of C2/C3 cervical vertebrae ICD Code: S13.131A - Dislocation of C2/C3 cervical vertebrae, initial encounter Assessment and Plan Mr. Shin is a pleasant 71 year old male who came to the hospital due to left sided weakness, numbness. Neurology evaluated patient. Imaging studies indicated C2-3 disc protrusion with severe canal stenosis and compression of gthe cord to an AP diameter of 2 or 3 mm. Neurosurgery evaluated patient and recommended surgery. - C2-3 disc protrusion - Severe cervical spinal canal stenosis - Discussed with Dr. Carlson who would like to take patient to surgery later this afternoon. - Will get STAT type and match and provide patient one unit of FFP and Vitamin K 2.5mg - PT/INR after FFP is given. - 03/16 INR is 1.4 after FFP. for Or in am as per neurosurgery documentation. - 03/17 INR down to 1.2. For Or later today. - Atrial fibrillation - Hyperlipidemia - Continue carvedilol 25 mg twice a day, diltiazem 360 mg by mouth daily. - Patient is on Coumadin for anticoagulation. Discussed with patient regarding one of the newer medications such as apixaban or Edoxaban. - Patient will discuss with his hedis manager regarding Apixaban or Edoxaban for Afib anti-coagulation. - Continue pravastatin 40 mg daily at bedtime. -Continue to hold Coumadin for procedure. - Diabetes mellitus -Hemoglobin A1c 8.7. Continue Levemir 22 units daily at bedtime, sliding scale insulin. - CINTHIA on CKD stage III -Creatinine admission was 3.1, trended to 2.5. As per review of records creatinine in 2014 2.5. Likely at baseline. Continue to monitor BUN/creatinine , avoid nephrotoxins, monitor strict I's and O's. - CINTHIA seems to have resolved. Full code. Warfarin (currently on hold), SCDs. Francois Montes MD Mar 17, 2017 14:38
[2017-03-17] MEDS ORDERED: ceFAZolin INJ 1,000 MG VIAL IV ONE (14:57)
[2017-03-17] MEDS ORDERED: ACETAMINOPHEN 1000 MG/100 ML 100 ML IV ONE (15:33)
[2017-03-17] MEDS ORDERED: DO NOT ADM ANY ANTICOAGULANT DRUGS PRN (16:20)
--- NOTE | 2017-03-17 16:21 | RADRPT ---
EXAM DATE/TIME: 03/17/2017 12:12 [facility] COMPARISON: No previous studies available for comparison. INDICATIONS : Hardwear removal and discectomy/fusion of C3-4. MEDICAL HISTORY : None. SURGICAL HISTORY : None. ENCOUNTER: Subsequent ACUITY: 1 day PAIN SCORE: Non-responsive. LOCATION: C3/4 FINDINGS: Metallic probe is at the C3 vertebral body. Hardware has been taken down. There is fusion from C2-C3 with bone plate and screws. There is fusio n at C5-C6 the bone plate and screws. CONCLUSION: Normal alignment with fusion as above.. Richard Alvarez MD FACR on March 17, 2017 at 16:17 Board Certified Radiologist. This report was verified electronically.
[2017-03-17] MEDS ORDERED: ACETAMINOPHEN/HYDROcodone 325 MG/5 MG TAB PO PRN (17:00)
[2017-03-17] MEDS ORDERED: NALOXONE HCL 0.4 MG/ML AMP IV PUSH PRN (17:00)
[2017-03-17] MEDS ORDERED: MORPHINE SULFATE 2 MG/ML INJ IV PUSH PRN (17:00)
--- NOTE | 2017-03-17 17:14 | PD.OP ---
Operative Report Date of Surgery: Mar 17, 2017 Preoperative Diagnosis: (1) Cervical disc disease with myelopathy (2) HNP (herniated nucleus pulposus), cervical (3) Cervical spinal stenosis C2 3 herniated nucleus pulposus Cervical myelopathy Postoperative Diagnosis: (1) Cervical disc disease with myelopathy (2) HNP (herniated nucleus pulposus), cervical (3) Cervical spinal stenosis C2 3 herniated nucleus pulposus Cervical myelopathy Procedure: 1. C2-3 anterior cervical discectomy, resection herniated nucleus pulposus with spinal cord decompression 2. C2- 3 anterior interbody fusion, composite allograft bone 3. C2-3 anterior cervical instrumentation 4. Removal of previous C3-C4 level anterior cervical instrumentation Anesthesia: Gen. Surgeon: Anjel Carlson Border Machine Operator(s): Marina Anderson Operation and Findings: Findings: Large sequestrated herniated nucleus pulposus with severe C2-3 canal compromise. Procedure in detail: The patient was brought into the operating room and positioned in supine position on the 3080 table with the head and neck in neutral position. Vang catheter was placed. Lines were established by Anesthesia. Leads for recurrent laryngeal nerve monitoring were placed along the endotracheal tube prior to intubation. Gen. endotracheal anesthesia was induced without difficulty, taking care not to significantly flex or extend the patient's neck during intubation and positioning. Leads for intraoperative neuro monitoring were placed and a baseline study obtained. All extremities were appropriately padded. The neck and upper chest were shaved with clippers and sterilely prepped and draped. Appropriate timeout procedure was performed with all personnel present and in agreement 1% Xylocaine with epinephrine was used for local infiltration over the incision site which was made transversely at the C2-3 and carried sharply down through the platysma muscle. The exposure was continued medial to the sternocleidomastoid muscle and carotid artery, and lateral to the trachea and esophagus. The prevertebral fascia was elevated away from the anterior longitudinal ligament with a Kitner sponge. The longus coli muscle on each side was elevated with the Cash elevator. The self-retaining retractor was placed with the blades beneath the longus coli muscle on each side. The appropriate levels were confirmed with intraoperative C-arm and preoperative imaging studies. The microscope was brought into place and used for the remainder of the procedure including the closure. The previously placed anterior cervical plate was incised with the bone-cutting bur just above the C4 screws and the previous C3 screws along with the upper plate were removed. Metallic fragments were carefully removed from the operative site. The procedure was performed at the 2-3 level for the discectomy and fusion. At each level the anterior osteophyte was resected with the Leksell rongeur. The disc and annulus was incised with a 15 blade knife and discectomy performed with pituitary biopsy forceps and straight and angled curettes. The disc appeared very desiccated. The TPS drill with the 5 mm barrel bur was used to decorticate the endplates and removed the majority of the osteophyte along the anterior spinal canal as well as the right and left uncovertebral joint. The thin ligament dissector was used to free up the posterior annulus and ligament from the vertebral body margin. The remainder of the resection of the posterior annulus and ligament as well as the posterior osteophyte and bilateral uncovertebral joint was performed with the 2 and 3 mm thin footplate Kerrison rongeurs. A large sequestered herniated nucleus pulposus was encountered posterior to the annulus and was lifted away from the thecal sac with the thickened ligament dissector and removed. The posterior vertebral bodies were undercut with the Kerrison rongeur and the TPS drill with the 4 mm rosas bur as needed to fully decompress the anterior spinal canal. The appropriate size 8mm V G2 bone graft was then placed at each level with a good fit of the graft. The blunt nerve hook was used to probe beneath the bone graft to ensure that there was no impingement on the thecal sac or exiting nerve roots. The appropriate size 22 mm Precision anterior cervical plate was then chosen and the bone screws were placed with the 14 mm fixed screws at the caudal most level and the 14 mm variable screws at the cephalad level of the decompression. The screws were firmly secured and the locking cams engaged. The entire construct was checked with intraoperative C-arm and felt to be satisfactory. The 10 Italian drain was brought out through a small incision in the left lower neck and secured to the skin with nylon suture and attached to sterile suction. The closure was performed with 3-0 Vicryl running for the platysma and interrupted for the subcutaneous closure, with 4-0 Vicryl running for the subcuticular closure. A dressing of sterile Mastisol, Steri-Strips, and Primapore dressing was placed. The patient was placed into a cervical collar, and taken to recovery room in stable condition. All counts were correct at the end of the case. Estimated blood loss was 500 cc No specimen was sent to pathology. Intraoperative neuro monitoring remained stable during the procedure. Anjel Carlson MD Mar 17, 2017 17:14
[2017-03-17 17:26] LABS: BASOPHIL % 0.4 % (0.0-2.0); EOSINOPHIL # 0.2 TH/MM3 (0-0.4); EOSINOPHIL % 2.5 % (0.0-4.0); HEMOGLOBIN 9.7 GM/DL (13.0-17.0); LYMPH % 23.2 % (9.0-44.0); LYMPHOCYTE # 2.3 TH/MM3 (1.0-4.8); MEAN CELL VOLUME 82.6 FL (80.0-100.0); MEAN CORPUSCULAR HEMOGLOBIN 27.7 PG (27.0-34.0); MEAN CORPUSCULAR HGB CONC 33.5 % (32.0-36.0); MEAN PLATELET VOLUME 8.3 FL (7.0-11.0); MONO % 12.6 % (0.0-8.0); MONOCYTE # 1.2 TH/MM3 (0-0.9); NEUT % 61.3 % (16.0-70.0); PLATELET COUNT 210 TH/MM3 (150-450); RED BLOOD COUNT 3.51 MIL/MM3 (4.50-5.90); RED CELL DISTRIBUTION WIDTH 14.9 % (11.6-17.2); WHITE BLOOD COUNT 9.7 TH/MM3 (4.0-11.0)
[2017-03-17 17:40] LABS: BICARBONATE 23.2 MEQ/L (21.0-32.0); CALCIUM 7.9 MG/DL (8.5-10.1); CREATININE 2.53 MG/DL (0.60-1.30)
[2017-03-17] MEDS: INSULIN DETEMIR 100 UNITS/ML VIAL SQ SCH (19:15)
[2017-03-17] MEDS: PRAVASTATIN SOD 40 MG TAB PO SCH (19:16)
[2017-03-17] MEDS: hydrALAZINE HCL 20 MG/ML VIAL IV PUSH PRN (21:23)
[2017-03-17] MEDS: ACETAMINOPHEN/HYDROcodone 325 MG/10 MG TAB PO PRN (22:31)
[2017-03-18] VITALS (12 sets, daily range): BP systolic 118–149; BP diastolic 56–70; PULSE 76–98; RESP 12–16; TEMP 98–99.9; O2SAT 99–100
[2017-03-18] MEDS: LORATADINE 10 MG TAB PO SCH (02:11)
[2017-03-18] MEDS: SODIUM CHLOR 0.9% 1000 ML INJ 1,000 ML IV SCH ×2 (02:12→13:46)
[2017-03-18 05:01] LABS: AUTOMATED NEUTROPHIL # 6.2 TH/MM3 (1.8-7.7); BASOPHIL % 0.4 % (0.0-2.0); EOSINOPHIL # 0.1 TH/MM3 (0-0.4); EOSINOPHIL % 0.8 % (0.0-4.0); HEMOGLOBIN 10.3 GM/DL (13.0-17.0); LYMPH % 19.4 % (9.0-44.0); LYMPHOCYTE # 1.7 TH/MM3 (1.0-4.8); MEAN CELL VOLUME 83.1 FL (80.0-100.0); MEAN CORPUSCULAR HEMOGLOBIN 27.7 PG (27.0-34.0); MEAN CORPUSCULAR HGB CONC 33.4 % (32.0-36.0); MEAN PLATELET VOLUME 8.6 FL (7.0-11.0); MONO % 9.7 % (0.0-8.0); MONOCYTE # 0.9 TH/MM3 (0-0.9); NEUT % 69.7 % (16.0-70.0); PLATELET COUNT 216 TH/MM3 (150-450); RED BLOOD COUNT 3.73 MIL/MM3 (4.50-5.90); RED CELL DISTRIBUTION WIDTH 14.8 % (11.6-17.2); WHITE BLOOD COUNT 8.9 TH/MM3 (4.0-11.0)
[2017-03-18 05:48] LABS: BICARBONATE 19.6 MEQ/L (21.0-32.0); CREATININE 2.33 MG/DL (0.60-1.30)
[2017-03-18] MEDS: INSULIN ASPART SUPPLEMENTAL SCALE SQ SCH ×4 (08:00→21:00)
--- NOTE | 2017-03-18 08:59 | HHI.NSPN ---
History Chief Complaint: None Interval History 03/14: 71 yo male states left upper greater than lE numbnes, weakness, loss of coordination starting last Monday and lasting 2 days. No KERR, nausea, fever. 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 He states that he is doing good. He denied any headache, dizziness, and any pain, numbness or tingling to the extremities. Patient was receiving fresh frozen plasma and has received oral phytonadione for his elevated INR. 03/16: This afternoon the patient is awake and watching TV with his . He says he is doing good and he had no complaints. 03/18: Patient awake and alert. Patient's only complaint this morning is at the oxygen is drying his nose and his mouth out. He denies any significant sore throat. Denies any difficulty swallowing. No radiculopathy or paresthesias in the upper extremities. Review of Systems General: Negative for: fever, chills, insomnia Respiratory: Negative for: shortness of breath, cough, sputum Cardiovascular: Negative for: chest pain Gastrointestinal: Negative for: nausea, vomitting, diarrhea, constipation Exam Results Vital Signs Date Time Temp Pulse Resp B/P (MAP) Pulse Ox O2 Delivery O2 Flow Rate FiO2 03/18/17 07:00 100 Nasal Cannula 2.00 03/18/17 06:00 78 03/18/17 04:00 99.9 16 139/66 (90) Intake and Output 03/18/17 03/18/17 03/19/17 08:00 16:00 00:00 Intake Total 40 ml Output Total 600 ml Balance -560 ml Physical Examination GENERAL: Awakens to voice, resting in NAD. SKIN: Anterior cervical incision dry. HEENT: Normocephalic, atraumatic. NECK: Anterior cervical incision with bandage in place that is dry. DENAE drain in place. RESPIRATORY: CTAB w/o W/R/R, equal excursion, nonlaboured, on O2 CARDIOVASCULAR: S1S2 w/RRR w/o M/G/R. No pedal edema. GASTROINTESTINAL: Abdomen round, soft, nontender, bowel sound positive. MUSCULOSKELETAL: WESLEY w/o difficulty. Motor strength is 5/5 to all major flexion & extension muscle groups to include hand intrinsics & extrinsics except for the left extensor hallucis longus is 3 to 3+/5. [place] cervical collar in place. NEUROLOGIC: Awakens easily to voice. Speech clear & appropriate. Follows commands w/o difficulty. Sensation intact to light touch to all extremities. Lab, Micro, Other Results Last Impressions Cervical Spine X-Ray 03/17/17 0000 Signed Impressions: Service Date/Time: Friday, March 17, 2017 12:12 - CONCLUSION: Normal alignment with fusion as above.. Richard Alvarez MD FACR Chest X-Ray 03/14/17 0000 Signed Impressions: Service Date/Time: Tuesday, March 14, 2017 16:20 - CONCLUSION: No acute cardiopulmonary process. Klaus Maria MD Cervical Spine MRI 03/14/17 0000 Signed Impressions: Service Date/Time: Tuesday, March 14, 2017 09:28 - CONCLUSION: 1. At C2-3 there is a large central disc protrusion with severe canal stenosis and compression of the cord to an AP diameter of 2 or 3 mm. There is myelomalacia of the cord below this level to the C5-6 level. Previous fusion C3-4-5 as above. Raman Mcmahon MD Head CT 03/13/17 1341 Signed Impressions: Service Date/Time: Monday, March 13, 2017 14:52 - CONCLUSION: Negative for an acute process. Richard Alvarez MD FACR Head Magnetic Resonance Angiography 03/13/17 0000 Signed Impressions: Service Date/Time: Monday, March 13, 2017 17:47 - CONCLUSION: Normal examination for a patient of this age. Raman Mcmahon MD Cervical Spine CT 03/13/17 0000 Signed Impressions: Service Date/Time: Monday, March 13, 2017 16:25 - CONCLUSION: 1. Anterior fixation at C3-5 with near-complete bony fusion. 2. Adjacent level disease at C2-3 with diffuse disc bulge and uncovertebral osteophytes resulting in severe spinal canal stenosis. Rajeev Altamirano MD Carotid Artery Ultrasound 03/13/17 0000 Signed Impressions: Service Date/Time: Monday, March 13, 2017 18:48 - CONCLUSION: 1. Minimal plaque visualized without hemodynamically significant stenosis. Raman Mcmahon MD Brain MRI 03/13/17 0000 Signed Impressions: Service Date/Time: Monday, March 13, 2017 17:47 - CONCLUSION: 1. Mild white matter ischemic changes. No recent infarct. No mass, hemorrhage or shift. Raman Mcmahon MD Laboratory Tests Test 03/17/17 17:12 03/18/17 04:39 White Blood Count 9.7 TH/MM3 8.9 TH/MM3 Red Blood Count 3.51 MIL/MM3 3.73 MIL/MM3 Hemoglobin 9.7 GM/DL 10.3 GM/DL Hematocrit 29.0 % 31.0 % Mean Corpuscular Volume 82.6 FL 83.1 FL Mean Corpuscular Hemoglobin 27.7 PG 27.7 PG Mean Corpuscular Hemoglobin Concent 33.5 % 33.4 % Red Cell Distribution Width 14.9 % 14.8 % Platelet Count 210 TH/MM3 216 TH/MM3 Mean Platelet Volume 8.3 FL 8.6 FL Neutrophils (%) (Auto) 61.3 % 69.7 % Lymphocytes (%) (Auto) 23.2 % 19.4 % Monocytes (%) (Auto) 12.6 % 9.7 % Eosinophils (%) (Auto) 2.5 % 0.8 % Basophils (%) (Auto) 0.4 % 0.4 % Neutrophils # (Auto) 6.0 TH/MM3 6.2 TH/MM3 Lymphocytes # (Auto) 2.3 TH/MM3 1.7 TH/MM3 Monocytes # (Auto) 1.2 TH/MM3 0.9 TH/MM3 Eosinophils # (Auto) 0.2 TH/MM3 0.1 TH/MM3 Basophils # (Auto) 0.0 TH/MM3 0.0 TH/MM3 CBC Comment DIFF FINAL DIFF FINAL Differential Comment Blood Urea Nitrogen 46 MG/DL 42 MG/DL Creatinine 2.53 MG/DL 2.33 MG/DL Random Glucose 112 MG/DL 81 MG/DL Calcium Level 7.9 MG/DL 8.0 MG/DL Sodium Level 139 MEQ/L 138 MEQ/L Potassium Level 3.9 MEQ/L 4.3 MEQ/L Chloride Level 109 MEQ/L 109 MEQ/L Carbon Dioxide Level 23.2 MEQ/L 19.6 MEQ/L Anion Gap 7 MEQ/L 9 MEQ/L Estimat Glomerular Filtration Rate 31 ML/MIN 34 ML/MIN Medical Decision Making Impression and Plan A: 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 Plan: Neurosurgically stable to transfer to . D/C O2 if O2 sats greater than 92% PT Antonio Ocampo Mar 18, 2017 8:59 am
[2017-03-18] MEDS: SODIUM CHLORIDE 0.9% FLUSH 10 ML FLUSH IV FLUSH SCH ×2 (09:00→21:36)
[2017-03-18] MEDS: PANTOPRAZOLE SOD 20 MG DELAYED RELEASE TAB PO SCH (09:25)
[2017-03-18] MEDS: CARVEDILOL 12.5 MG TAB PO SCH ×2 (09:25→21:00)
[2017-03-18] MEDS: DILTIAZEM-CD 180 MG CAP ER PO SCH (09:26)
[2017-03-18] MEDS: FERROUS SULFATE 325 MG (65 MG ELEMENTAL IRON) TAB PO SCH ×2 (09:26→17:42)
[2017-03-18] MEDS: ACETAMINOPHEN/HYDROcodone 325 MG/10 MG TAB PO PRN (10:34)
[2017-03-18] MEDS ORDERED: CYCLOBENZAPRINE HCL 10 MG TAB PO PRN (11:00)
[2017-03-18] MEDS: PRAVASTATIN SOD 40 MG TAB PO SCH (21:00)
[2017-03-18] MEDS: INSULIN DETEMIR 100 UNITS/ML VIAL SQ SCH (21:00)
[2017-03-18] MEDS: ENALAPRILAT 1.25 MG/ML VIAL IV PUSH PRN (21:33)
[2017-03-18] MEDS: hydrALAZINE HCL 20 MG/ML VIAL IV PUSH PRN (22:38)
[2017-03-19] VITALS (12 sets, daily range): BP systolic 137–177; BP diastolic 67–92; PULSE 88–104; RESP 16–21; TEMP 98.7–100.1; O2SAT 99–100
[2017-03-19] MEDS: hydrALAZINE HCL 20 MG/ML VIAL IV PUSH PRN ×2 (02:50→05:36)
[2017-03-19] MEDS: INSULIN ASPART SUPPLEMENTAL SCALE SQ SCH ×4 (07:45→21:00)
--- NOTE | 2017-03-19 08:12 | HHI.PR ---
Subjective Remarks Deferred entry - patient seen on 03/19/17 Patient states pain controlled creatinine is trending down Objective Vitals Vital Signs Date Time Temp Pulse Resp B/P (MAP) Pulse Ox O2 Delivery O2 Flow Rate FiO2 03/19/17 06:00 104 03/19/17 04:00 96 03/19/17 04:00 100.1 96 16 154/70 (98) 100 03/19/17 02:00 97 03/19/17 00:00 94 03/19/17 00:00 99.8 94 21 151/67 (95) 100 03/18/17 22:11 21 03/18/17 22:00 98 03/18/17 20:00 84 03/18/17 20:00 99.2 84 12 149/70 (96) 99 03/18/17 19:00 98 Room Air 03/18/17 18:00 84 03/18/17 16:00 76 03/18/17 16:00 98.3 76 15 129/60 (83) 100 03/18/17 14:00 82 03/18/17 12:00 84 03/18/17 12:00 98.2 84 16 118/56 (76) 100 03/18/17 10:00 90 I/O 03/18/17 03/18/17 03/18/17 03/19/17 03/19/17 03/19/17 07:00 15:00 23:00 07:00 15:00 23:00 Intake Total 40 ml 950 ml Output Total 600 ml 455 ml 725 ml Balance -560 ml 950 ml -455 ml -725 ml Intake Oral 40 ml IV Total 950 ml Output Urine Total 600 ml 450 ml 725 ml Drainage Total 0 ml 5 ml # Bowel Movements 0 0 0 Result Diagram: 03/18/17 0439 03/18/17 0439 Imaging Last Impressions Cervical Spine X-Ray 03/17/17 0000 Signed Impressions: Service Date/Time: Friday, March 17, 2017 12:12 - CONCLUSION: Normal alignment with fusion as above.. Richard Alvarez MD FACR Chest X-Ray 03/14/17 0000 Signed Impressions: Service Date/Time: Tuesday, March 14, 2017 16:20 - CONCLUSION: No acute cardiopulmonary process. Klaus Maria MD Cervical Spine MRI 03/14/17 0000 Signed Impressions: Service Date/Time: Tuesday, March 14, 2017 09:28 - CONCLUSION: 1. At C2-3 there is a large central disc protrusion with severe canal stenosis and compression of the cord to an AP diameter of 2 or 3 mm. There is myelomalacia of the cord below this level to the C5-6 level. Previous fusion C3-4-5 as above. Raman Mcmahon MD Head CT 03/13/17 1341 Signed Impressions: Service Date/Time: Monday, March 13, 2017 14:52 - CONCLUSION: Negative for an acute process. Richard Alvarez MD FACR Head Magnetic Resonance Angiography 03/13/17 0000 Signed Impressions: Service Date/Time: Monday, March 13, 2017 17:47 - CONCLUSION: Normal examination for a patient of this age. Raman Mcmahon MD Cervical Spine CT 03/13/17 0000 Signed Impressions: Service Date/Time: Monday, March 13, 2017 16:25 - CONCLUSION: 1. Anterior fixation at C3-5 with near-complete bony fusion. 2. Adjacent level disease at C2-3 with diffuse disc bulge and uncovertebral osteophytes resulting in severe spinal canal stenosis. Rajeev Altamirano MD Carotid Artery Ultrasound 03/13/17 0000 Signed Impressions: Service Date/Time: Monday, March 13, 2017 18:48 - CONCLUSION: 1. Minimal plaque visualized without hemodynamically significant stenosis. Raman Mcmahon MD Brain MRI 03/13/17 0000 Signed Impressions: Service Date/Time: Monday, March 13, 2017 17:47 - CONCLUSION: 1. Mild white matter ischemic changes. No recent infarct. No mass, hemorrhage or shift. Raman Mcmahon MD Objective Remarks GENERAL: alert, Oriented x 3, NAD. SKIN: Warm and dry. HEAD: Normocephalic. EYES: No scleral icterus. No injection or drainage. NECK: Anterior cervical incision with bandage in place that is dry. DENAE drain in place. CARDIOVASCULAR: Regular rate and rhythm without murmurs, gallops, or rubs. RESPIRATORY: Breath sounds equal bilaterally. No accessory muscle use. GASTROINTESTINAL: Abdomen soft, non-tender, nondistended. MUSCULOSKELETAL: No cyanosis, or edema. BACK: Nontender without obvious deformity. No CVA tenderness. Procedures 1. C2-3 anterior cervical discectomy, resection herniated nucleus pulposus with spinal cord decompression 2. C2- 3 anterior interbody fusion, composite allograft bone 3. C2-3 anterior cervical instrumentation 4. Removal of previous C3-C4 level anterior cervical instrumentation A/P Problem List: (1) TIA (transient ischemic attack) ICD Code: G45.9 - Transient cerebral ischemic attack, unspecified Status: Acute (2) Cervical stenosis of spinal canal ICD Code: M48.02 - Spinal stenosis, cervical region (3) Dislocation of C2/C3 cervical vertebrae ICD Code: S13.131A - Dislocation of C2/C3 cervical vertebrae, initial encounter Assessment and Plan Mr. Shin is a pleasant 71 year old male who came to the hospital due to left sided weakness, numbness. Neurology evaluated patient. Imaging studies indicated C2-3 disc protrusion with severe canal stenosis and compression of gthe cord to an AP diameter of 2 or 3 mm. Neurosurgery evaluated patient and recommended surgery. - C2-3 disc protrusion - Severe cervical spinal canal stenosis - Discussed with Dr. Carlson who would like to take patient to surgery later this afternoon. - Will get STAT type and match and provide patient one unit of FFP and Vitamin K 2.5mg - PT/INR after FFP is given. - 03/16 INR is 1.4 after FFP. for Or in am as per neurosurgery documentation. - 03/17 INR down to 1.2. For Or later today. - 03/18 Sp C2 -3 anterior cervical discectomy, resection herniated nucleus pulposus with spinal cord decompression - Atrial fibrillation - Hyperlipidemia - Continue carvedilol 25 mg twice a day, diltiazem 360 mg by mouth daily. - Patient is on Coumadin for anticoagulation. Discussed with patient regarding one of the newer medications such as apixaban or Edoxaban. - Patient will discuss with his lap winder regarding Apixaban or Edoxaban for Afib anti-coagulation. - Continue pravastatin 40 mg daily at bedtime. - 03/18 rate controlled. Resume Coumadin when cleared by neurosurgery. - Diabetes mellitus -Hemoglobin A1c 8.7. Continue Levemir 22 units daily at bedtime, sliding scale insulin. - CINTHIA on CKD stage III -Creatinine admission was 3.1, trended to 2.3. As per review of records creatinine in 2014 2.5. Likely at baseline. Continue to monitor BUN/creatinine , avoid nephrotoxins, monitor strict I's and O's. - CINTHIA seems to have resolved. Full code. Warfarin (currently on hold), SCDs. Discharge Planning ok to transfer to medical floor. Dc pending neurosurgery clearance. Francois Montes MD Mar 19, 2017 08:12
--- NOTE | 2017-03-19 08:27 | HHI.NSPN ---
History Chief Complaint: None Interval History 03/14: 71 yo male states left upper greater than lE numbnes, weakness, loss of coordination starting last Monday and lasting 2 days. No KERR, nausea, fever. Sent to ER by his filling hauler today for above symptoms 03/15: When seen this afternoon the patient is awake and watching TV with his . He states that he is doing good. He denied any headache, dizziness, and any pain, numbness or tingling to the extremities. Patient was receiving fresh frozen plasma and has received oral phytonadione for his elevated INR. 03/16: This afternoon the patient is awake and watching TV with his . He says he is doing good and he had no complaints. 03/18: Patient awake and alert. Patient's only complaint this morning is at the oxygen is drying his nose and his mouth out. He denies any significant sore throat. Denies any difficulty swallowing. No radiculopathy or paresthesias in the upper extremities. 03/19: Patient denies any neck pain, radiculopathy, or paresthesias. He complains of difficulty swallowing. He is requiring when necessary IV blood pressure medication since he is having difficulty swallowing he is unable to take pills. Speech therapy as following patient. Review of Systems General: Negative for: fever, chills, insomnia Respiratory: Negative for: shortness of breath, cough, sputum Cardiovascular: Negative for: chest pain Gastrointestinal: Negative for: nausea, vomitting, diarrhea, constipation System Review Comments Faculty swallowing. Patient is nothing by mouth by speech therapy. Exam Results Vital Signs Date Time Temp Pulse Resp B/P (MAP) Pulse Ox O2 Delivery O2 Flow Rate FiO2 03/19/17 08:00 99.7 102 21 177/73 (107) 99 03/19/17 07:00 Room Air 03/18/17 22:11 21 03/18/17 07:00 2.00 Intake and Output 03/19/17 03/19/17 03/20/17 08:00 16:00 00:00 Output Total 725 ml Balance -725 ml Physical Examination GENERAL: Awakens to voice, resting in NAD. SKIN: Anterior cervical incision dry. HEENT: Normocephalic, atraumatic. NECK: Anterior cervical incision with bandage in place that is dry. DENAE drain in place. RESPIRATORY: CTAB w/o W/R/R, equal excursion, nonlaboured, on O2 CARDIOVASCULAR: S1S2 w/RRR w/o M/G/R. No pedal edema. GASTROINTESTINAL: Abdomen round, soft, nontender, bowel sound positive. MUSCULOSKELETAL: WESLEY w/o difficulty. Motor strength is 5/5 to all major flexion & extension muscle groups to include hand intrinsics & extrinsics except for the left extensor hallucis longus is 3 to 3+/5. Ford cervical collar in place. NEUROLOGIC: Awakens easily to voice. Speech clear & appropriate. Follows commands w/o difficulty. Sensation intact to light touch to all extremities. Lab, Micro, Other Results Last Impressions Cervical Spine X-Ray 03/17/17 0000 Signed Impressions: Service Date/Time: Friday, March 17, 2017 12:12 - CONCLUSION: Normal alignment with fusion as above.. Richard Alvarez MD FACR Chest X-Ray 03/14/17 0000 Signed Impressions: Service Date/Time: Tuesday, March 14, 2017 16:20 - CONCLUSION: No acute cardiopulmonary process. Klaus Maria MD Cervical Spine MRI 03/14/17 0000 Signed Impressions: Service Date/Time: Tuesday, March 14, 2017 09:28 - CONCLUSION: 1. At C2-3 there is a large central disc protrusion with severe canal stenosis and compression of the cord to an AP diameter of 2 or 3 mm. There is myelomalacia of the cord below this level to the C5-6 level. Previous fusion C3-4-5 as above. Raman Mcmahon MD Head CT 03/13/17 1341 Signed Impressions: Service Date/Time: Monday, March 13, 2017 14:52 - CONCLUSION: Negative for an acute process. Richard Alvarez MD FACR Head Magnetic Resonance Angiography 03/13/17 0000 Signed Impressions: Service Date/Time: Monday, March 13, 2017 17:47 - CONCLUSION: Normal examination for a patient of this age. Raman Mcmahon MD Cervical Spine CT 03/13/17 0000 Signed Impressions: Service Date/Time: Monday, March 13, 2017 16:25 - CONCLUSION: 1. Anterior fixation at C3-5 with near-complete bony fusion. 2. Adjacent level disease at C2-3 with diffuse disc bulge and uncovertebral osteophytes resulting in severe spinal canal stenosis. Rajeev Altamirano MD Carotid Artery Ultrasound 03/13/17 0000 Signed Impressions: Service Date/Time: Monday, March 13, 2017 18:48 - CONCLUSION: 1. Minimal plaque visualized without hemodynamically significant stenosis. Raman Mcmahon MD Brain MRI 03/13/17 0000 Signed Impressions: Service Date/Time: Monday, March 13, 2017 17:47 - CONCLUSION: 1. Mild white matter ischemic changes. No recent infarct. No mass, hemorrhage or shift. 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 Plan: D/C DENAE drains PT Continue with speech therapy and swallow evals. Antonio Ocampo Mar 19, 2017 8:27 am
[2017-03-19] MEDS: DILTIAZEM-CD 180 MG CAP ER PO SCH (08:47)
[2017-03-19] MEDS: LORATADINE 10 MG TAB PO SCH (08:47)
[2017-03-19] MEDS: FERROUS SULFATE 325 MG (65 MG ELEMENTAL IRON) TAB PO SCH ×2 (08:47→17:53)
[2017-03-19] MEDS: SODIUM CHLORIDE 0.9% FLUSH 10 ML FLUSH IV FLUSH SCH ×2 (08:47→21:58)
[2017-03-19] MEDS: CARVEDILOL 12.5 MG TAB PO SCH ×2 (08:47→21:53)
[2017-03-19] MEDS: PANTOPRAZOLE SOD 20 MG DELAYED RELEASE TAB PO SCH (08:48)
[2017-03-19] MEDS: SODIUM CHLOR 0.9% 1000 ML INJ 1,000 ML IV SCH ×3 (10:00→21:58)
--- NOTE | 2017-03-19 10:52 | RADRPT ---
EXAM DATE/TIME: 03/19/2017 10:14 [facility] COMPARISON: CHEST SINGLE AP, March 14, 2017, 16:20. INDICATIONS : Shortness of breath. MEDICAL HISTORY : Hypertension. Diabetes. SURGICAL HISTORY : None. ENCOUNTER: Subsequent ACUITY: 4 - 6 days PAIN SCORE: 0/10 LOCATION: Bilateral chest FINDINGS: There is obscuration of the left hemidiaphragm consistent with left lower lobe atelectasis versus air space consolidation. Mild volume loss identified within the left hemithorax. The remainder of the ced gs are clear. The heart size is normal. Pulmonary vasculature is normal. CONCLUSION: Left lower lobe atelectasis versus airspace consolidation. Recommend repeat exam with upright PA late ral views of the chest. Amanda Sarmiento MD on March 19, 2017 at 10:46 Board Certified Radiologist. This report was verified electronically.
[2017-03-19 11:52] LABS: AUTOMATED NEUTROPHIL # 6.2 TH/MM3 (1.8-7.7); BASOPHIL # 0.1 TH/MM3 (0-0.2); BASOPHIL % 0.6 % (0.0-2.0); EOSINOPHIL # 0.1 TH/MM3 (0-0.4); EOSINOPHIL % 1.1 % (0.0-4.0); HEMOGLOBIN 9.8 GM/DL (13.0-17.0); LYMPHOCYTE # 1.7 TH/MM3 (1.0-4.8); MEAN CELL VOLUME 84.5 FL (80.0-100.0); MEAN CORPUSCULAR HEMOGLOBIN 27.8 PG (27.0-34.0); MEAN CORPUSCULAR HGB CONC 32.9 % (32.0-36.0); MEAN PLATELET VOLUME 8.8 FL (7.0-11.0); MONO % 12.3 % (0.0-8.0); MONOCYTE # 1.1 TH/MM3 (0-0.9); PLATELET COUNT 225 TH/MM3 (150-450); RED BLOOD COUNT 3.55 MIL/MM3 (4.50-5.90); RED CELL DISTRIBUTION WIDTH 14.8 % (11.6-17.2); WHITE BLOOD COUNT 9.2 TH/MM3 (4.0-11.0)
[2017-03-19 12:13] LABS: ALBUMIN 2.6 GM/DL (3.4-5.0); ALT (GPT) 17 U/L (12-78); AST (GOT) 22 U/L (15-37); BICARBONATE 13.5 MEQ/L (21.0-32.0); BLOOD UREA NITROGEN 41 MG/DL (7-18); CALCIUM 8.1 MG/DL (8.5-10.1); CHLORIDE 113 MEQ/L (98-107); CREATININE 2.44 MG/DL (0.60-1.30); GLOMERULAR FILTRATION RATE 32 ML/MIN (>89); GLUCOSE,RANDOM 75 MG/DL (74-106); MAGNESIUM 1.6 MG/DL (1.5-2.5); PHOSPHORUS 2.9 MG/DL (2.5-4.9); SODIUM (NA) 141 MEQ/L (136-145)
[2017-03-19 12:15] LABS: ALKALINE PHOSPHATASE 63 U/L (45-117); TOTAL BILIRUBIN ADULT 0.6 MG/DL (0.2-1.0); TOTAL PROTEIN 6.9 GM/DL (6.4-8.2)
[2017-03-19] MEDS: DILTIAZEM HCL 90 MG TAB PO SCH ×2 (12:15→17:53)
[2017-03-19 12:22] LABS: BACTERIA, URINE FEW /hpf; BILIRUBIN, URINE NEG (NEG); BLOOD, URINE NEG (NEG); GLUCOSE,URINE NEG (NEG); KETONE, URINE 40 mg/dL (NEG); MUCUS URINE FEW /lpf (OCC); NITRITE,URINE NEG (NEG); SQUAMOUS EPITHELIAL CELL URINE <1 /hpf (0-5); URINE COLOR YELLOW (YELLW/STRAW); URINE LEUKOCYTE ESTERASE MOD (NEG); WHITE BLOOD CELL CLUMPS RARE
--- NOTE | 2017-03-19 16:44 | HHI.PR ---
Subjective Remarks Patient states had difficult swallowing earlier however states this is improving. Patient also c/o voice hoarseness. As per RN patient has been coughing hving yellow sputum production and patient confirms. PAtient has had a fever with a tmax of 100.1 Objective Vitals Vital Signs Date Time Temp Pulse Resp B/P (MAP) Pulse Ox O2 Delivery O2 Flow Rate FiO2 03/19/17 16:00 98.7 93 21 137/92 (107) 100 03/19/17 12:00 99.3 103 16 163/72 (102) 100 03/19/17 09:20 99 21 03/19/17 08:00 99.7 102 21 177/73 (107) 99 03/19/17 07:00 100 Room Air 03/19/17 06:00 104 03/19/17 04:00 96 03/19/17 04:00 100.1 96 16 154/70 (98) 100 03/19/17 02:00 97 03/19/17 00:00 94 03/19/17 00:00 99.8 94 21 151/67 (95) 100 03/18/17 22:11 21 03/18/17 22:00 98 03/18/17 20:00 84 03/18/17 20:00 99.2 84 12 149/70 (96) 99 03/18/17 19:00 98 Room Air 03/18/17 18:00 84 I/O 03/18/17 03/18/17 03/18/17 03/19/17 03/19/17 03/19/17 07:00 15:00 23:00 07:00 15:00 23:00 Intake Total 40 ml 950 ml Output Total 600 ml 455 ml 725 ml Balance -560 ml 950 ml -455 ml -725 ml Intake Oral 40 ml IV Total 950 ml Output Urine Total 600 ml 450 ml 725 ml Drainage Total 0 ml 5 ml # Bowel Movements 0 0 0 Result Diagram: 03/19/17 1110 03/19/17 1110 Imaging Last Impressions Chest X-Ray 03/19/17 0000 Signed Impressions: Service Date/Time: Sunday, March 19, 2017 10:14 - CONCLUSION: Left lower lobe atelectasis versus airspace consolidation. Recommend repeat exam with upright PA lateral views of the chest. Amanda Sarmiento MD Cervical Spine X-Ray 03/17/17 0000 Signed Impressions: Service Date/Time: Friday, March 17, 2017 12:12 - CONCLUSION: Normal alignment with fusion as above.. Richard Alvarez MD FACR Cervical Spine MRI 03/14/17 0000 Signed Impressions: Service Date/Time: Tuesday, March 14, 2017 09:28 - CONCLUSION: 1. At C2-3 there is a large central disc protrusion with severe canal stenosis and compression of the cord to an AP diameter of 2 or 3 mm. There is myelomalacia of the cord below this level to the C5-6 level. Previous fusion C3-4-5 as above. Raman Mcmahon MD Head CT 03/13/17 1341 Signed Impressions: Service Date/Time: Monday, March 13, 2017 14:52 - CONCLUSION: Negative for an acute process. Richard Alvarez MD FACR Head Magnetic Resonance Angiography 03/13/17 0000 Signed Impressions: Service Date/Time: Monday, March 13, 2017 17:47 - CONCLUSION: Normal examination for a patient of this age. Raman Mcmahon MD Cervical Spine CT 03/13/17 0000 Signed Impressions: Service Date/Time: Monday, March 13, 2017 16:25 - CONCLUSION: 1. Anterior fixation at C3-5 with near-complete bony fusion. 2. Adjacent level disease at C2-3 with diffuse disc bulge and uncovertebral osteophytes resulting in severe spinal canal stenosis. Rajeev Altamirano MD Carotid Artery Ultrasound 03/13/17 0000 Signed Impressions: Service Date/Time: Monday, March 13, 2017 18:48 - CONCLUSION: 1. Minimal plaque visualized without hemodynamically significant stenosis. Raman Mcmahon MD Brain MRI 03/13/17 0000 Signed Impressions: Service Date/Time: Monday, March 13, 2017 17:47 - CONCLUSION: 1. Mild white matter ischemic changes. No recent infarct. No mass, hemorrhage or shift. Raman Mcmahon MD Objective Remarks GENERAL: alert, Oriented x 3, NAD. SKIN: Warm and dry. HEAD: Normocephalic. EYES: No scleral icterus. No injection or drainage. NECK: Anterior cervical incision with bandage in place that is dry. DENAE drain in place. CARDIOVASCULAR: Regular rate and rhythm without murmurs, gallops, or rubs. RESPIRATORY: Breath sounds equal bilaterally. No accessory muscle use. GASTROINTESTINAL: Abdomen soft, non-tender, nondistended. MUSCULOSKELETAL: No cyanosis, or edema. BACK: Nontender without obvious deformity. No CVA tenderness. Procedures 1. C2-3 anterior cervical discectomy, resection herniated nucleus pulposus with spinal cord decompression 2. C2- 3 anterior interbody fusion, composite allograft bone 3. C2-3 anterior cervical instrumentation 4. Removal of previous C3-C4 level anterior cervical instrumentation Medications and IVs Current Medications Medications (Trade) Dose Ordered Sig/Floyd Route Start Time Stop Time Status Last Admin (NS Flush) 2 ml BID IV FLUSH 03/13/17 21:00 03/19/17 21:58 (NS Flush) 2 ml UNSCH PRN IV FLUSH 03/13/17 17:00 (Levemir Inj) 22 units HS SQ 03/13/17 21:00 03/19/17 22:08 (Protonix) 20 mg DAILY PO 03/14/17 09:00 03/18/17 09:25 (Coreg) 25 mg BID PO 03/14/17 09:00 03/19/17 21:53 (Cardizem Cd) 360 mg DAILY PO 03/14/17 09:00 Future Hold 03/18/17 09:26 (Ferrous Sulfate) 325 mg BIDPC PO 03/14/17 09:00 03/19/17 17:53 (Claritin) 10 mg DAILY PO 03/14/17 09:00 03/18/17 02:11 (Pravachol) 40 mg HS PO 03/14/17 21:00 03/19/17 21:53 (Tylenol) 650 mg Q4H PRN PO 03/15/17 12:00 (Benadryl) 25 mg Q4H PRN PO 03/15/17 12:00 (D50w (Vial) Inj) 50 ml UNSCH PRN IV PUSH 03/15/17 14:45 (Glucagon Inj) 1 mg UNSCH PRN OTHER 03/15/17 14:45 (NovoLOG SUPPLEMENTAL SCALE) 1 ACHS SLIDING SCALE SQ 03/15/17 17:00 03/16/17 21:18 Sodium Chloride 1,000 ml @ 100 mls/hr Q10H IV 03/17/17 08:00 03/19/17 21:58 ([place] 5-325 Mg) 1 tab Q4H PRN PO 03/17/17 17:00 ([place] 10-325 Mg) 1 tab Q4H PRN PO 03/17/17 17:00 03/18/17 10:34 (Morphine Inj) 4 mg Q3H PRN IV PUSH 03/17/17 17:00 (Narcan Inj) 0.4 mg UNSCH PRN IV PUSH 03/17/17 17:00 (Apresoline Inj) 10 mg Q1HR PRN IV PUSH 03/17/17 20:30 03/19/17 05:36 (Vasotec Inj) 1.25 mg Q6H PRN IV PUSH 03/17/17 20:30 03/18/17 21:33 (Flexeril) 10 mg Q8H PRN PO 03/18/17 11:00 (Cardizem) 90 mg Q6HR PO 03/19/17 12:00 03/19/17 17:53 Levofloxacin/ Dextrose 150 ml @ 100 mls/hr Q48H IV 03/19/17 16:00 03/19/17 17:01 Metronidazole 100 ml @ 100 mls/hr Q8H IV 03/19/17 17:00 03/19/17 17:53 A/P Problem List: (1) TIA (transient ischemic attack) ICD Code: G45.9 - Transient cerebral ischemic attack, unspecified Status: Acute (2) Cervical stenosis of spinal canal ICD Code: M48.02 - Spinal stenosis, cervical region (3) Dislocation of C2/C3 cervical vertebrae ICD Code: S13.131A - Dislocation of C2/C3 cervical vertebrae, initial encounter Assessment and Plan Mr. Shin is a pleasant 71 year old male who came to the hospital due to left sided weakness, numbness. Neurology evaluated patient. Imaging studies indicated C2-3 disc protrusion with severe canal stenosis and compression of gthe cord to an AP diameter of 2 or 3 mm. Neurosurgery evaluated patient and recommended surgery. - C2-3 disc protrusion - Severe cervical spinal canal stenosis - Discussed with Dr. Carlson who would like to take patient to surgery later this afternoon. - Will get STAT type and match and provide patient one unit of FFP and Vitamin K 2.5mg - PT/INR after FFP is given. - 03/16 INR is 1.4 after FFP. for Or in am as per neurosurgery documentation. - 03/17 INR down to 1.2. For Or later today. - 03/18 Sp C2 -3 anterior cervical discectomy, resection herniated nucleus pulposus with spinal cord decompression - Atrial fibrillation - Hyperlipidemia - Continue carvedilol 25 mg twice a day, diltiazem 360 mg by mouth daily. - Patient is on Coumadin for anticoagulation. Discussed with patient regarding one of the newer medications such as apixaban or Edoxaban. - Patient will discuss with his switchboard mechanic regarding Apixaban or Edoxaban for Afib anti-coagulation. - Continue pravastatin 40 mg daily at bedtime. - 03/18 rate controlled. Resume Coumadin when cleared by neurosurgery. - Diabetes mellitus -Hemoglobin A1c 8.7. Continue Levemir 22 units daily at bedtime, sliding scale insulin. - CINTHIA on CKD stage III -Creatinine admission was 3.1, trended to 2.3. As per review of records creatinine in 2014 2.5. Likely at baseline. Continue to monitor BUN/creatinine , avoid nephrotoxins, monitor strict I's and O's. - CINTHIA seems to have resolved. - Fever/sepsis/uti - tmax of 100.9, fever. Suspected hospital acquired vs aspiration pna. - CXR ordered earlier, shows left lower lobe consolidation vs atelectasis. - Continue incentive spiramotry. Will start patient on IV Levaquin and IV Flagyl - UA (+) fu urine cultures. Dysphagia - Patient evaluated by speech therapy. - Will order a modified barium swallow. Full code. Warfarin (currently on hold), SCDs. Discharge Planning Continue to monitor in med surg. Francois Montes MD Mar 19, 2017 16:44
[2017-03-19] MEDS: LEVOFLOXACIN 750 MG PREMIX INJ 150 ML IV SCH (17:01)
[2017-03-19] MEDS: metroNIDAZOLE 500 MG INJ 100 ML IV SCH (17:53)
[2017-03-19] MEDS: PRAVASTATIN SOD 40 MG TAB PO SCH (21:53)
[2017-03-19] MEDS: INSULIN DETEMIR 100 UNITS/ML VIAL SQ SCH (22:08)
[2017-03-20] VITALS (14 sets, daily range): BP systolic 101–138; BP diastolic 55–73; PULSE 76–101; RESP 16–21; TEMP 97.8–98.4; O2SAT 90–100
[2017-03-20] MEDS: DILTIAZEM HCL 90 MG TAB PO SCH ×4 (00:58→17:25)
[2017-03-20] MEDS: metroNIDAZOLE 500 MG INJ 100 ML IV SCH ×3 (00:59→17:25)
[2017-03-20] MEDS: SODIUM CHLOR 0.9% 1000 ML INJ 1,000 ML IV SCH ×4 (06:00→21:44)
[2017-03-20] MEDS: INSULIN ASPART SUPPLEMENTAL SCALE SQ SCH ×4 (08:00→21:37)
[2017-03-20] MEDS: LORATADINE 10 MG TAB PO SCH (09:00)
[2017-03-20] MEDS: CARVEDILOL 12.5 MG TAB PO SCH ×2 (09:30→20:24)
[2017-03-20] MEDS: FERROUS SULFATE 325 MG (65 MG ELEMENTAL IRON) TAB PO SCH ×2 (09:30→17:25)
[2017-03-20] MEDS: PANTOPRAZOLE SOD 20 MG DELAYED RELEASE TAB PO SCH (09:30)
[2017-03-20] MEDS: SODIUM CHLORIDE 0.9% FLUSH 10 ML FLUSH IV FLUSH SCH ×2 (09:31→20:23)
--- NOTE | 2017-03-20 10:23 | HHI.NSPN ---
(Melchor Daniel) History Chief Complaint: None (Melchor Daniel) Interval History 03/14: 71 yo male states left upper greater than lE numbnes, weakness, loss of coordination starting last Monday and lasting 2 days. No KERR, nausea, fever. Sent to ER by his technical recruiter today for above symptoms 03/15: When seen this afternoon the patient is awake and watching TV with his . He states that he is doing good. He denied any headache, dizziness, and any pain, numbness or tingling to the extremities. Patient was receiving fresh frozen plasma and has received oral phytonadione for his elevated INR. 03/16: This afternoon the patient is awake and watching TV with his . He says he is doing good and he had no complaints. 03/17: The patient went for a C2-3 anterior cervical discectomy and anterior interbody fusion and instrumentation. Post-operatively the patient was transferred to the ISC unit for further monitoring and care. 03/18: Patient awake and alert. Patient's only complaint this morning is at the oxygen is drying his nose and his mouth out. He denies any significant sore throat. Denies any difficulty swallowing. No radiculopathy or paresthesias in the upper extremities. 03/19: Patient denies any neck pain, radiculopathy, or paresthesias. He complains of difficulty swallowing. He is requiring when necessary IV blood pressure medication since he is having difficulty swallowing he is unable to take pills. Speech therapy as following patient. 03/20: When seen this morning the patient was getting ready to go for a barium swallow. He denied any difficulty swallowing when seen. He had no midline cervical spine or surgical incision tenderness. His sensation and motor strength are intact. Nursing did say that the patient stated he was ready to go home. (Melchor Daniel) Exam Results 03/18/17 03/18/17 03/19/17 03/19/17 03/20/17 03/20/17 06:00 18:00 06:00 18:00 06:00 18:00 Intake Total 609 ml 950 ml 360 ml 1570 ml Output Total 1160 ml 455 ml 725 ml 925 ml 100 ml Balance -551 ml 495 ml -725 ml -565 ml 1470 ml Intake Oral 80 ml 360 ml 120 ml IV Total 529 ml 950 ml 1450 ml Output Urine Total 1150 ml 450 ml 725 ml 925 ml 100 ml Drainage Total 10 ml 5 ml # Voids 2 # Bowel Movements 0 0 0 1 2 Vital Signs Date Time Temp Pulse Resp B/P (MAP) Pulse Ox O2 Delivery O2 Flow Rate FiO2 03/20/17 08:34 99 03/20/17 08:00 98.4 87 21 135/63 (87) 99 03/20/17 04:00 76 03/20/17 04:00 98.1 79 16 123/58 (79) 100 03/20/17 00:00 83 03/20/17 00:00 98.4 84 16 130/60 (83) 100 03/19/17 22:06 100 21 03/19/17 21:00 92 03/19/17 21:00 Room Air 03/19/17 20:00 98.8 95 16 176/74 (108) 100 03/19/17 16:00 98.7 93 21 137/92 (107) 100 03/19/17 15:00 88 03/19/17 12:00 99.3 103 16 163/72 (102) 100 03/19/17 09:20 99 21 03/19/17 08:00 99.7 102 21 177/73 (107) 99 03/19/17 07:00 100 Room Air 03/19/17 06:00 104 03/19/17 04:00 96 03/19/17 04:00 100.1 96 16 154/70 (98) 100 03/19/17 02:00 97 03/19/17 00:00 94 03/19/17 00:00 99.8 94 21 151/67 (95) 100 03/18/17 22:11 21 03/18/17 22:00 98 03/18/17 20:00 84 03/18/17 20:00 99.2 84 12 149/70 (96) 99 03/18/17 19:00 98 Room Air 03/18/17 18:00 84 03/18/17 16:00 76 03/18/17 16:00 98.3 76 15 129/60 (83) 100 03/18/17 14:00 82 03/18/17 12:00 84 03/18/17 12:00 98.2 84 16 118/56 (76) 100 03/18/17 10:00 90 03/18/17 08:00 98.1 80 12 129/60 (83) 100 03/18/17 08:00 80 03/18/17 07:00 100 Nasal Cannula 2.00 03/18/17 06:00 78 03/18/17 04:00 93 03/18/17 04:00 99.9 93 16 139/66 (90) 100 03/18/17 02:00 97 03/18/17 00:00 92 03/18/17 00:00 98.0 92 12 142/65 (90) 100 03/17/17 22:00 89 03/17/17 20:53 100 Nasal Cannula 2.00 03/17/17 20:20 84 03/17/17 20:00 97.6 75 15 161/76 (104) 100 03/17/17 19:14 100 Nasal Cannula 2.00 03/17/17 18:30 97.4 75 20 167/86 (113) 94 03/17/17 18:00 97.5 63 15 147/68 (94) 100 Nasal Cannula 2 03/17/17 18:00 97.5 03/17/17 17:30 70 17 164/77 (106) 100 Nasal Cannula 2 03/17/17 17:15 69 13 153/74 (100) 100 Nasal Cannula 2 03/17/17 17:15 96.1 03/17/17 17:00 75 15 160/88 (112) 96 Nasal Cannula 2 03/17/17 16:45 75 15 163/74 (103) 96 Nasal Cannula 2 03/17/17 16:30 73 19 148/86 (106) 93 Nasal Cannula 2 03/17/17 16:25 95.8 03/17/17 16:20 95.8 72 19 159/72 (101) 93 Nasal Cannula 2 (Melchor Daniel) Physical Examination GENERAL: Awake & alert, in stretcher ready to go for MBSS. Slightly flat affect. Readily interacts. No apparent distress. HEENT: Normocephalic, atraumatic. NECK: [place] cervical collar in place. Midline cervical spine NTTP. Left anterior cervical incision NTTP w/intact dressing w/o shadowing, no erythema or streaking noted. MUSCULOSKELETAL: WES[place] w/o difficulty. NEUROLOGIC: AAOx3. Speech clear & appropriate. Follows commands w/o difficulty. Sensation intact to light touch to all extremities. Motor strength is 5/5 to all major flexion & extension muscle groups to include hand intrinsics & extrinsics except for the left extensor hallucis longus is 3 to 3+/5. (Melchor Daniel) Lab, Micro, Other Results Recent Impressions Chest X-Ray 03/19/17 0000 Signed Impressions: Service Date/Time: Sunday, March 19, 2017 10:14 - CONCLUSION: Left lower lobe atelectasis versus airspace consolidation. Recommend repeat exam with upright PA lateral views of the chest. Amanda Sarmiento MD Laboratory Tests Test 03/17/17 17:12 03/18/17 04:39 03/19/17 11:10 03/19/17 11:45 White Blood Count 9.7 TH/MM3 8.9 TH/MM3 9.2 TH/MM3 Red Blood Count 3.51 MIL/MM3 3.73 MIL/MM3 3.55 MIL/MM3 Hemoglobin 9.7 GM/DL 10.3 GM/DL 9.8 GM/DL Hematocrit 29.0 % 31.0 % 30.0 % Mean Corpuscular Volume 82.6 FL 83.1 FL 84.5 FL Mean Corpuscular Hemoglobin 27.7 PG 27.7 PG 27.8 PG Mean Corpuscular Hemoglobin Concent 33.5 % 33.4 % 32.9 % Red Cell Distribution Width 14.9 % 14.8 % 14.8 % Platelet Count 210 TH/MM3 216 TH/MM3 225 TH/MM3 Mean Platelet Volume 8.3 FL 8.6 FL 8.8 FL Neutrophils (%) (Auto) 61.3 % 69.7 % 67.0 % Lymphocytes (%) (Auto) 23.2 % 19.4 % 19.0 % Monocytes (%) (Auto) 12.6 % 9.7 % 12.3 % Eosinophils (%) (Auto) 2.5 % 0.8 % 1.1 % Basophils (%) (Auto) 0.4 % 0.4 % 0.6 % Neutrophils # (Auto) 6.0 TH/MM3 6.2 TH/MM3 6.2 TH/MM3 Lymphocytes # (Auto) 2.3 TH/MM3 1.7 TH/MM3 1.7 TH/MM3 Monocytes # (Auto) 1.2 TH/MM3 0.9 TH/MM3 1.1 TH/MM3 Eosinophils # (Auto) 0.2 TH/MM3 0.1 TH/MM3 0.1 TH/MM3 Basophils # (Auto) 0.0 TH/MM3 0.0 TH/MM3 0.1 TH/MM3 CBC Comment DIFF FINAL DIFF FINAL DIFF FINAL Differential Comment Blood Urea Nitrogen 46 MG/DL 42 MG/DL 41 MG/DL Creatinine 2.53 MG/DL 2.33 MG/DL 2.44 MG/DL Random Glucose 112 MG/DL 81 MG/DL 75 MG/DL Calcium Level 7.9 MG/DL 8.0 MG/DL 8.1 MG/DL Sodium Level 139 MEQ/L 138 MEQ/L 141 MEQ/L Potassium Level 3.9 MEQ/L 4.3 MEQ/L 4.3 MEQ/L Chloride Level 109 MEQ/L 109 MEQ/L 113 MEQ/L Carbon Dioxide Level 23.2 MEQ/L 19.6 MEQ/L 13.5 MEQ/L Anion Gap 7 MEQ/L 9 MEQ/L 15 MEQ/L Estimat Glomerular Filtration Rate 31 ML/MIN 34 ML/MIN 32 ML/MIN Total Protein 6.9 GM/DL Albumin 2.6 GM/DL Phosphorus Level 2.9 MG/DL Magnesium Level 1.6 MG/DL Alkaline Phosphatase 63 U/L Aspartate Amino Transf (AST/SGOT) 22 U/L Alanine Aminotransferase (ALT/SGPT) 17 U/L Total Bilirubin 0.6 MG/DL Urine Color YELLOW Urine Turbidity HAZY Urine pH 5.0 Urine Specific [place] 1.013 Urine Protein 30 mg/dL Urine Glucose (UA) NEG mg/dL Urine Ketones 40 mg/dL Urine Occult Blood NEG Urine Nitrite NEG Urine Bilirubin NEG Urine Urobilinogen LESS THAN 2.0 MG/DL Urine Leukocyte Esterase MOD Urine RBC 1 /hpf Urine WBC 17 /hpf Urine WBC Clumps RARE Urine Squamous Epithelial Cells <1 /hpf Urine Bacteria FEW /hpf Urine Mucus FEW /lpf Microscopic Urinalysis Comment CULTURE INDICATED (Melchor Daniel) Medical Decision Making Impression and Plan Impression: 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 Reviewed labs for today. Interval drop in haemoglobin. Interval decrease in renal function. Plan: Discussed plan of care with patient & . Discussed plan of care with Nursing Pureed diet w/honey thick liquids. ST for swallowing. Mobilise patient w/assistance as needed. PT/OT eval & tx. [place] J cervical collar. MBSS. Possible discharge tomorrow after PT/OT eval & MBSS. ADDENDUM at 1541: Reviewed MBSS report. Patient w/severe pharyngeal dysphagia w/confirmed aspiration events w/all consistencies secondary to post- surgical edema. Will make patient NPO and start IVF normal saline. Will have ST continue to see patient for swallowing. At this time patient is not able to be discharged home safely. Discussed with Dr Carlson. JUDAH. (Melchor Daniel) Attending Statement The exam, history, and the medical decision-making described in the above note were completed with the assistance of the mid-level provider. I reviewed and agree with the findings presented. I attest that I had a [id number] encounter with the patient on the same day, and personally performed and documented my assessment and findings in the medical record. On my examination of 03/20/2017, the patient is awake and alert. He complains of only mild neck and throat discomfort. There is mild hoarseness of voice. Dressing is dry and intact Neck drain out Sensation grossly intact all extremities with complaint of mild paresthesias in the distal extremities Has good strength in major flexion and extension groups all extremities, mild weakness hand intrinsics Speech therapy and barium swallow impressions noted. Continuing speech therapy Due to persistent dysphagia patient will remain in the hospital at this time. (Anjel Carlson MD) Melchor Daniel Mar 20, 2017 10:23 Anjel Cralson MD Mar 20, 2017 17:28
--- NOTE | 2017-03-20 11:01 | RADRPT ---
EXAM DATE/TIME: 03/20/2017 00:00 [place] COMPARISON: No previous studies available for comparison. INDICATIONS : Dysphagia, choking, coughing, anterior cervical fusion last week FLUORO TIME: 1.4 minutes IMAGE COUNT: 0 CONTRAST: Dose as prescribed by speech pathologist. MEDICAL HISTORY : None. SURGICAL HISTORY : cervical fusion ENCOUNTER: Subsequent ACUITY: 3 days PAIN SCORE: Non-responsive. LOCATION: Bilateral esophagus FINDINGS: A modified barium swallow was performed with speech pathology. Patient was given a variety of liquids to swallow. The patient aspirated with thin and thick liquids. For a full detailed report, see report by the speech pathologist. CONCLUSION: Aspiration. Basil Lewis MD on March 20, 2017 at 10:58 Board Certified Radiologist. This report was verified electronically.
--- NOTE | 2017-03-20 15:47 | HHI.PR ---
Subjective Remarks Patient denies fevers or chills. States that cough is improving as well as sputum production denies cp/sob. Objective Vitals Vital Signs Date Time Temp Pulse Resp B/P (MAP) Pulse Ox O2 Delivery O2 Flow Rate FiO2 03/20/17 12:00 98.0 84 20 101/55 (70) 100 03/20/17 08:34 99 03/20/17 08:30 Room Air 03/20/17 08:00 98.4 87 21 135/63 (87) 99 03/20/17 06:59 85 03/20/17 04:00 76 03/20/17 04:00 98.1 79 16 123/58 (79) 100 03/20/17 00:00 83 03/20/17 00:00 98.4 84 16 130/60 (83) 100 03/19/17 22:06 100 21 03/19/17 21:00 92 03/19/17 21:00 Room Air 03/19/17 20:00 98.8 95 16 176/74 (108) 100 03/19/17 16:00 98.7 93 21 137/92 (107) 100 I/O 03/19/17 03/19/17 03/19/17 03/20/17 03/20/17 03/20/17 07:00 15:00 23:00 07:00 15:00 23:00 Intake Total 1810 ml 120 ml Output Total 725 ml 925 ml 100 ml Balance -725 ml 885 ml 20 ml Intake Oral 360 ml 120 ml IV Total 1450 ml Output Urine Total 725 ml 925 ml 100 ml # Voids 2 # Bowel Movements 0 1 2 Result Diagram: 03/19/17 1110 03/19/17 1110 Imaging Last Impressions Modified Barium Swallow 03/20/17 0000 Signed Impressions: Service Date/Time: Monday, March 20, 2017 00:00 - CONCLUSION: Aspiration. Basil Lewis MD Chest X-Ray 03/19/17 0000 Signed Impressions: Service Date/Time: Sunday, March 19, 2017 10:14 - CONCLUSION: Left lower lobe atelectasis versus airspace consolidation. Recommend repeat exam with upright PA lateral views of the chest. Amanda Sarmiento MD Cervical Spine X-Ray 03/17/17 0000 Signed Impressions: Service Date/Time: Friday, March 17, 2017 12:12 - CONCLUSION: Normal alignment with fusion as above.. Richard Alvarez MD FACR Cervical Spine MRI 03/14/17 0000 Signed Impressions: Service Date/Time: Tuesday, March 14, 2017 09:28 - CONCLUSION: 1. At C2-3 there is a large central disc protrusion with severe canal stenosis and compression of the cord to an AP diameter of 2 or 3 mm. There is myelomalacia of the cord below this level to the C5-6 level. Previous fusion C3-4-5 as above. Raman Mcmahon MD Head CT 03/13/17 1341 Signed Impressions: Service Date/Time: Monday, March 13, 2017 14:52 - CONCLUSION: Negative for an acute process. Richard Alvarez MD FACR Head Magnetic Resonance Angiography 03/13/17 0000 Signed Impressions: Service Date/Time: Monday, March 13, 2017 17:47 - CONCLUSION: Normal examination for a patient of this age. Raman Mcmahon MD Cervical Spine CT 03/13/17 0000 Signed Impressions: Service Date/Time: Monday, March 13, 2017 16:25 - CONCLUSION: 1. Anterior fixation at C3-5 with near-complete bony fusion. 2. Adjacent level disease at C2-3 with diffuse disc bulge and uncovertebral osteophytes resulting in severe spinal canal stenosis. Rajeev Altamirano MD Carotid Artery Ultrasound 03/13/17 0000 Signed Impressions: Service Date/Time: Monday, March 13, 2017 18:48 - CONCLUSION: 1. Minimal plaque visualized without hemodynamically significant stenosis. Raman Mcmahon MD Brain MRI 03/13/17 0000 Signed Impressions: Service Date/Time: Monday, March 13, 2017 17:47 - CONCLUSION: 1. Mild white matter ischemic changes. No recent infarct. No mass, hemorrhage or shift. Raman Mcmahon MD Objective Remarks GENERAL: alert, Oriented x 3, NAD. SKIN: Warm and dry. HEAD: Normocephalic. EYES: No scleral icterus. No injection or drainage. NECK: Anterior cervical incision with bandage in place that is dry. DENAE drain in place. CARDIOVASCULAR: Regular rate and rhythm without murmurs, gallops, or rubs. RESPIRATORY: Breath sounds equal bilaterally. No accessory muscle use. GASTROINTESTINAL: Abdomen soft, non-tender, nondistended. MUSCULOSKELETAL: No cyanosis, or edema. BACK: Nontender without obvious deformity. No CVA tenderness. Procedures 1. C2-3 anterior cervical discectomy, resection herniated nucleus pulposus with spinal cord decompression 2. C2- 3 anterior interbody fusion, composite allograft bone 3. C2-3 anterior cervical instrumentation 4. Removal of previous C3-C4 level anterior cervical instrumentation Medications and IVs Current Medications Medications (Trade) Dose Ordered Sig/Floyd Route Start Time Stop Time Status Last Admin (NS Flush) 2 ml BID IV FLUSH 03/13/17 21:00 03/20/17 09:31 (NS Flush) 2 ml UNSCH PRN IV FLUSH 03/13/17 17:00 (Levemir Inj) 22 units HS SQ 03/13/17 21:00 03/19/17 22:08 (Protonix) 20 mg DAILY PO 03/14/17 09:00 03/20/17 09:30 (Coreg) 25 mg BID PO 03/14/17 09:00 03/20/17 09:30 (Cardizem Cd) 360 mg DAILY PO 03/14/17 09:00 Future Hold 03/18/17 09:26 (Ferrous Sulfate) 325 mg BIDPC PO 03/14/17 09:00 03/20/17 09:30 (Claritin) 10 mg DAILY PO 03/14/17 09:00 03/18/17 02:11 (Pravachol) 40 mg HS PO 03/14/17 21:00 03/19/17 21:53 (Tylenol) 650 mg Q4H PRN PO 03/15/17 12:00 (Benadryl) 25 mg Q4H PRN PO 03/15/17 12:00 (D50w (Vial) Inj) 50 ml UNSCH PRN IV PUSH 03/15/17 14:45 (Glucagon Inj) 1 mg UNSCH PRN OTHER 03/15/17 14:45 (NovoLOG SUPPLEMENTAL SCALE) 1 ACHS SLIDING SCALE SQ 03/15/17 17:00 03/16/17 21:18 Sodium Chloride 1,000 ml @ 100 mls/hr Q10H IV 03/17/17 08:00 03/20/17 06:00 ([place] 5-325 Mg) 1 tab Q4H PRN PO 03/17/17 17:00 ([place] 10-325 Mg) 1 tab Q4H PRN PO 03/17/17 17:00 03/18/17 10:34 (Morphine Inj) 4 mg Q3H PRN IV PUSH 03/17/17 17:00 (Narcan Inj) 0.4 mg UNSCH PRN IV PUSH 03/17/17 17:00 (Apresoline Inj) 10 mg Q1HR PRN IV PUSH 03/17/17 20:30 03/19/17 05:36 (Vasotec Inj) 1.25 mg Q6H PRN IV PUSH 03/17/17 20:30 03/18/17 21:33 (Flexeril) 10 mg Q8H PRN PO 03/18/17 11:00 (Cardizem) 90 mg Q6HR PO 03/19/17 12:00 03/20/17 06:22 Levofloxacin/ Dextrose 150 ml @ 100 mls/hr Q48H IV 03/19/17 16:00 03/19/17 17:01 Metronidazole 100 ml @ 100 mls/hr Q8H IV 03/19/17 17:00 03/20/17 09:30 A/P Problem List: (1) TIA (transient ischemic attack) ICD Code: G45.9 - Transient cerebral ischemic attack, unspecified Status: Acute (2) Cervical stenosis of spinal canal ICD Code: M48.02 - Spinal stenosis, cervical region (3) Dislocation of C2/C3 cervical vertebrae ICD Code: S13.131A - Dislocation of C2/C3 cervical vertebrae, initial encounter Assessment and Plan Mr. Shin is a pleasant 71 year old male who came to the hospital due to left sided weakness, numbness. Neurology evaluated patient. Imaging studies indicated C2-3 disc protrusion with severe canal stenosis and compression of gthe cord to an AP diameter of 2 or 3 mm. Neurosurgery evaluated patient and recommended surgery. - C2-3 disc protrusion - Severe cervical spinal canal stenosis - Discussed with Dr. Carlson who would like to take patient to surgery later this afternoon. - Will get STAT type and match and provide patient one unit of FFP and Vitamin K 2.5mg - PT/INR after FFP is given. - 03/16 INR is 1.4 after FFP. for Or in am as per neurosurgery documentation. - 03/17 INR down to 1.2. For Or later today. - 03/18 Sp C2 -3 anterior cervical discectomy, resection herniated nucleus pulposus with spinal cord decompression - Atrial fibrillation - Hyperlipidemia - Continue carvedilol 25 mg twice a day, diltiazem 360 mg by mouth daily. - Patient is on Coumadin for anticoagulation. Discussed with patient regarding one of the newer medications such as apixaban or Edoxaban. 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 - Continue pravastatin 40 mg daily at bedtime. - 03/18 rate controlled. Resume Coumadin when cleared by neurosurgery. - 03/20 Patient npo and therefore not able to take oral medications. Will monitor heart rate and if goes in RVR then will consider starting a Cardizem drip. - Diabetes mellitus -Hemoglobin A1c 8.7. Continue Levemir 22 units daily at bedtime, sliding scale insulin. - CINTHIA on CKD stage III -Creatinine admission was 3.1, trended to 2.3. As per review of records creatinine in 2015 2.5. Likely at baseline. Continue to monitor BUN/creatinine , avoid nephrotoxins, monitor strict I's and O's. - CINTHIA seems to have resolved. - Fever/sepsis/uti/aspiration pna - tmax of 100.9, fever. Suspected hospital acquired vs aspiration pna. - CXR ordered earlier, shows left lower lobe consolidation vs atelectasis. - Continue incentive spiramotry. Continue IV Levaquin and IV Flagyl. - UA (+) urine culture negative. - check sputum cultures. Dysphagia - Patient evaluated by speech therapy. - 03/20 Modified barium swallow and showed - keep npo. Continue IV lfuids for now. Full code. Warfarin (currently on hold), SCDs. Discharge Planning Continue to monitor in med surg. Francois Montes MD Mar 20, 2017 15:47
[2017-03-20] MEDS: PRAVASTATIN SOD 40 MG TAB PO SCH (20:24)
[2017-03-20] MEDS: INSULIN DETEMIR 100 UNITS/ML VIAL SQ SCH (20:24)
[2017-03-21] VITALS (18 sets, daily range): BP systolic 166–196; BP diastolic 60–98; PULSE 75–104; RESP 16–24; TEMP 98–98.7; O2SAT 98–100
[2017-03-21] MEDS: DILTIAZEM HCL 90 MG TAB PO SCH ×5 (00:30→22:27)
[2017-03-21] MEDS: metroNIDAZOLE 500 MG INJ 100 ML IV SCH ×3 (01:28→16:26)
[2017-03-21] MEDS: SODIUM CHLOR 0.9% 1000 ML INJ 1,000 ML IV SCH ×2 (03:55→15:50)
[2017-03-21] MEDS: ENALAPRILAT 1.25 MG/ML VIAL IV PUSH PRN (04:29)
[2017-03-21 05:21] LABS: ALBUMIN 2.6 GM/DL (3.4-5.0); ALKALINE PHOSPHATASE 59 U/L (45-117); ALT (GPT) 13 U/L (12-78); AST (GOT) 20 U/L (15-37); CHLORIDE 115 MEQ/L (98-107); CREATININE 2.18 MG/DL (0.60-1.30); GLOMERULAR FILTRATION RATE 36 ML/MIN (>89); GLUCOSE,RANDOM 83 MG/DL (74-106); MAGNESIUM 1.5 MG/DL (1.5-2.5); SODIUM (NA) 144 MEQ/L (136-145); TOTAL BILIRUBIN ADULT 0.4 MG/DL (0.2-1.0); TOTAL PROTEIN 6.7 GM/DL (6.4-8.2)
[2017-03-21 05:52] LABS: BLOOD UREA NITROGEN 30 MG/DL (7-18)
[2017-03-21 05:57] LABS: AUTOMATED NEUTROPHIL # 4.2 TH/MM3 (1.8-7.7); BASOPHIL % 0.5 % (0.0-2.0); EOSINOPHIL # 0.1 TH/MM3 (0-0.4); EOSINOPHIL % 1.6 % (0.0-4.0); HEMATOCRIT 29.6 % (39.0-51.0); HEMOGLOBIN 9.9 GM/DL (13.0-17.0); LYMPH % 25.4 % (9.0-44.0); LYMPHOCYTE # 1.8 TH/MM3 (1.0-4.8); MEAN CELL VOLUME 83.4 FL (80.0-100.0); MEAN CORPUSCULAR HGB CONC 33.6 % (32.0-36.0); MEAN PLATELET VOLUME 9.5 FL (7.0-11.0); MONO % 13.7 % (0.0-8.0); NEUT % 58.8 % (16.0-70.0); PLATELET COUNT 205 TH/MM3 (150-450); RED BLOOD COUNT 3.55 MIL/MM3 (4.50-5.90); WHITE BLOOD COUNT 7.2 TH/MM3 (4.0-11.0)
[2017-03-21] MEDS: INSULIN ASPART SUPPLEMENTAL SCALE SQ SCH ×4 (08:00→22:21)
[2017-03-21] MEDS: PANTOPRAZOLE SOD 20 MG DELAYED RELEASE TAB PO SCH (09:00)
[2017-03-21] MEDS: LORATADINE 10 MG TAB PO SCH (09:00)
[2017-03-21] MEDS: CARVEDILOL 12.5 MG TAB PO SCH ×2 (09:00→21:00)
[2017-03-21] MEDS: FERROUS SULFATE 325 MG (65 MG ELEMENTAL IRON) TAB PO SCH ×2 (09:22→16:33)
--- NOTE | 2017-03-21 09:34 | HHI.NSPN ---
History Chief Complaint: None Interval History 03/14: 71 yo male states left upper greater than lE numbnes, weakness, loss of coordination starting last Monday and lasting 2 days. No KERR, nausea, fever. 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 He states that he is doing good. He denied any headache, dizziness, and any pain, numbness or tingling to the extremities. Patient was receiving fresh frozen plasma and has received oral phytonadione for his elevated INR. 03/16: This afternoon the patient is awake and watching TV with his . He says he is doing good and he had no complaints. 03/17: The patient went for a C2-3 anterior cervical discectomy and anterior interbody fusion and instrumentation. Post-operatively the patient was transferred to the ISC unit for further monitoring and care. 03/18: Patient awake and alert. Patient's only complaint this morning is at the oxygen is drying his nose and his mouth out. He denies any significant sore throat. Denies any difficulty swallowing. No radiculopathy or paresthesias in the upper extremities. 03/19: Patient denies any neck pain, radiculopathy, or paresthesias. He complains of difficulty swallowing. He is requiring when necessary IV blood pressure medication since he is having difficulty swallowing he is unable to take pills. Speech therapy as following patient. 03/20: When seen this morning the patient was getting ready to go for a barium swallow. He denied any difficulty swallowing when seen. He had no midline cervical spine or surgical incision tenderness. His sensation and motor strength are intact. Nursing did say that the patient stated he was ready to go home. 03/21: This morning the patient is awake and alert. His systolic blood pressure is noted to be elevated to 191 mm Hg. The patient is NPO due to aspiration on the MBSS yesterday morning. He remains neurologically intact. He does have some mild tenderness to the surgical incision. After the patient was seen Nursing was getting ready to give metoprolol intravenously. Nursing did report that the patient has had some hypoglycemia. Exam Results 03/19/17 03/19/17 03/20/17 03/20/17 03/21/17 03/21/17 06:00 18:00 06:00 18:00 06:00 18:00 Intake Total 360 ml 1570 ml 1850 ml 873 ml Output Total 725 ml 925 ml 100 ml 300 ml Balance -725 ml -565 ml 1470 ml 1550 ml 873 ml Intake Oral 360 ml 120 ml 450 ml IV Total 1450 ml 1400 ml 873 ml Output Urine Total 725 ml 925 ml 100 ml 300 ml # Voids 2 3 # Bowel Movements 0 1 2 Vital Signs Date Time Temp Pulse Resp B/P (MAP) Pulse Ox O2 Delivery O2 Flow Rate FiO2 03/21/17 08:33 100 21 03/21/17 08:00 98.7 97 24 191/84 (119) 100 03/21/17 04:38 98.3 94 16 171/78 (109) 98 03/21/17 04:00 96 03/21/17 03:00 87 03/21/17 02:00 75 03/21/17 01:00 101 03/21/17 00:47 98.0 104 17 166/82 (110) 100 03/20/17 23:56 99 03/20/17 23:00 93 03/20/17 22:00 98 03/20/17 21:35 Room Air 03/20/17 21:20 90 21 03/20/17 21:00 89 03/20/17 20:26 98.1 101 17 133/73 (93) 100 03/20/17 20:06 87 03/20/17 16:00 97.8 81 18 138/65 (89) 100 03/20/17 12:00 98.0 84 20 101/55 (70) 100 03/20/17 08:34 99 03/20/17 08:30 Room Air 03/20/17 08:00 98.4 87 21 135/63 (87) 99 03/20/17 06:59 85 03/20/17 04:00 76 03/20/17 04:00 98.1 79 16 123/58 (79) 100 03/20/17 00:00 83 03/20/17 00:00 98.4 84 16 130/60 (83) 100 03/19/17 22:06 100 21 03/19/17 21:00 92 03/19/17 21:00 Room Air 03/19/17 20:00 98.8 95 16 176/74 (108) 100 03/19/17 16:00 98.7 93 21 137/92 (107) 100 03/19/17 15:00 88 03/19/17 12:00 99.3 103 16 163/72 (102) 100 03/19/17 09:20 99 21 03/19/17 08:00 99.7 102 21 177/73 (107) 99 03/19/17 07:00 100 Room Air 03/19/17 06:00 104 03/19/17 04:00 96 03/19/17 04:00 100.1 96 16 154/70 (98) 100 03/19/17 02:00 97 03/19/17 00:00 94 03/19/17 00:00 99.8 94 21 151/67 (95) 100 03/18/17 22:11 21 03/18/17 22:00 98 03/18/17 20:00 84 03/18/17 20:00 99.2 84 12 149/70 (96) 99 03/18/17 19:00 98 Room Air 03/18/17 18:00 84 03/18/17 16:00 76 03/18/17 16:00 98.3 76 15 129/60 (83) 100 03/18/17 14:00 82 03/18/17 12:00 84 03/18/17 12:00 98.2 84 16 118/56 (76) 100 03/18/17 10:00 90 Physical Examination GENERAL: Awake & alert, sitting up in bed visiting w/ and watching TV. Slightly flat affect. Readily interacts. No apparent distress. HEENT: Normocephalic, atraumatic. NECK: [place] cervical collar in place. Midline cervical spine NTTP. Left anterior cervical incision minimally TTP w/steri-strips intact, no drainage, erythema or streaking noted. DENAE drain insertion site w/intact dressing, no shadowing noted. MUSCULOSKELETAL: WESLEY w/o difficulty. NEUROLOGIC: AAOx3. Speech clear & appropriate. Follows commands w/o difficulty. Sensation intact to light touch to all extremities. Motor strength is 5/5 to all major flexion & extension muscle groups to include hand intrinsics & extrinsics except for the left extensor hallucis longus is 3+ to 4/5. Lab, Micro, Other Results Recent Impressions Modified Barium Swallow 03/20/17 0000 Signed Impressions: Service Date/Time: Monday, March 20, 2017 00:00 - CONCLUSION: Aspiration. Basil Lewis MD Chest X-Ray 03/19/17 0000 Signed Impressions: Service Date/Time: Sunday, March 19, 2017 10:14 - CONCLUSION: Left lower lobe atelectasis versus airspace consolidation. Recommend repeat exam with upright PA lateral views of the chest. Amanda Sarmiento MD Laboratory Tests Test 03/19/17 11:10 03/19/17 11:45 03/21/17 03:06 White Blood Count 9.2 TH/MM3 7.2 TH/MM3 Red Blood Count 3.55 MIL/MM3 3.55 MIL/MM3 Hemoglobin 9.8 GM/DL 9.9 GM/DL Hematocrit 30.0 % 29.6 % Mean Corpuscular Volume 84.5 FL 83.4 FL Mean Corpuscular Hemoglobin 27.8 PG 28.0 PG Mean Corpuscular Hemoglobin Concent 32.9 % 33.6 % Red Cell Distribution Width 14.8 % 15.0 % Platelet Count 225 TH/MM3 205 TH/MM3 Mean Platelet Volume 8.8 FL 9.5 FL Neutrophils (%) (Auto) 67.0 % 58.8 % Lymphocytes (%) (Auto) 19.0 % 25.4 % Monocytes (%) (Auto) 12.3 % 13.7 % Eosinophils (%) (Auto) 1.1 % 1.6 % Basophils (%) (Auto) 0.6 % 0.5 % Neutrophils # (Auto) 6.2 TH/MM3 4.2 TH/MM3 Lymphocytes # (Auto) 1.7 TH/MM3 1.8 TH/MM3 Monocytes # (Auto) 1.1 TH/MM3 1.0 TH/MM3 Eosinophils # (Auto) 0.1 TH/MM3 0.1 TH/MM3 Basophils # (Auto) 0.1 TH/MM3 0.0 TH/MM3 CBC Comment DIFF FINAL DIFF FINAL Differential Comment Blood Urea Nitrogen 41 MG/DL 30 MG/DL Creatinine 2.44 MG/DL 2.18 MG/DL Random Glucose 75 MG/DL 83 MG/DL Total Protein 6.9 GM/DL 6.7 GM/DL Albumin 2.6 GM/DL 2.6 GM/DL Calcium Level 8.1 MG/DL 8.0 MG/DL Phosphorus Level 2.9 MG/DL 2.0 MG/DL Magnesium Level 1.6 MG/DL 1.5 MG/DL Alkaline Phosphatase 63 U/L 59 U/L Aspartate Amino Transf (AST/SGOT) 22 U/L 20 U/L Alanine Aminotransferase (ALT/SGPT) 17 U/L 13 U/L Total Bilirubin 0.6 MG/DL 0.4 MG/DL Sodium Level 141 MEQ/L 144 MEQ/L Potassium Level 4.3 MEQ/L 3.5 MEQ/L Chloride Level 113 MEQ/L 115 MEQ/L Carbon Dioxide Level 13.5 MEQ/L 18.0 MEQ/L Anion Gap 15 MEQ/L 11 MEQ/L Estimat Glomerular Filtration Rate 32 ML/MIN 36 ML/MIN Urine Color YELLOW Urine Turbidity HAZY Urine pH 5.0 Urine Specific [place] 1.013 Urine Protein 30 mg/dL Urine Glucose (UA) NEG mg/dL Urine Ketones 40 mg/dL Urine Occult Blood NEG Urine Nitrite NEG Urine Bilirubin NEG Urine Urobilinogen LESS THAN 2.0 MG/DL Urine Leukocyte Esterase MOD Urine RBC 1 /hpf Urine WBC 17 /hpf Urine WBC Clumps RARE Urine Squamous Epithelial Cells <1 /hpf Urine Bacteria FEW /hpf Urine Mucus FEW /lpf Microscopic Urinalysis Comment CULTURE INDICATED Hematology Comments Medical Decision Making Impression and Plan Impression: 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 Hypertension. Reviewed labs for today. Haemoglobin stable. Interval improvement in renal function. Physical Therapy recommended inpatient rehab for further therapy. Occupational Therapy felt that the patient was able to be discharged home safely w/o any skilled needs. MBSS demonstrated patient w/severe pharyngeal dysphagia w/confirmed aspiration events w/all consistencies secondary to post-surgical edema. POD #4 () s/p : 1. C2-3 anterior cervical discectomy, resection herniated nucleus pulposus with spinal cord decompression 2. C2- 3 anterior interbody fusion, composite allograft bone 3. C2-3 anterior cervical instrumentation 4. Removal of previous C3-C4 level anterior cervical instrumentation Postoperative Diagnosis: (1) Cervical disc disease with myelopathy (2) HNP (herniated nucleus pulposus), cervical (3) Cervical spinal stenosis C2 3 herniated nucleus pulposus Cervical myelopathy Plan: Discussed plan of care with patient & . Discussed plan of care with Nursing Pureed diet w/honey thick liquids. ST for swallowing. Mobilise patient w/assistance as needed. PT/OT eval & tx. José Miguel Trinidad cervical collar. Will change IVF from NS to D5-1/2NS. Melchor Daniel Mar 21, 2017 09:34
--- NOTE | 2017-03-21 09:59 | HHI.PR ---
Review/Management Diagnosis/Plan: (1) Cervical spondylolysis ICD Codes: M43.02 - Spondylolysis, cervical region Status: Chronic Plan: C2,3 cord compression s/p cervical decompression recs speech therapy follow up doing well otherwise d/c planning (2) DM neuropathies ICD Codes: E11.40 - Type 2 diabetes mellitus with diabetic neuropathy, unspecified Status: Chronic (3) CKD (chronic kidney disease) ICD Codes: N18.9 - Chronic kidney disease, unspecified Status: Chronic Plan: bp/dm control (4) HTN (hypertension) ICD Codes: I10 - Essential (primary) hypertension Status: Chronic Plan: bp meds Subjective Subjective Comments No acute events reported No headache No chest pain No dyspnea Active Medications Current Medications Medications (Trade) Dose Ordered Sig/Floyd Route Start Time Stop Time Status Last Admin (NS Flush) 2 ml BID IV FLUSH 03/13/17 21:00 03/20/17 09:31 (NS Flush) 2 ml UNSCH PRN IV FLUSH 03/13/17 17:00 (Levemir Inj) 22 units HS SQ 03/13/17 21:00 03/19/17 22:08 (Protonix) 20 mg DAILY PO 03/14/17 09:00 03/20/17 09:30 (Coreg) 25 mg BID PO 03/14/17 09:00 03/20/17 09:30 (Cardizem Cd) 360 mg DAILY PO 03/14/17 09:00 Future Hold 03/18/17 09:26 (Ferrous Sulfate) 325 mg BIDPC PO 03/14/17 09:00 03/20/17 09:30 (Claritin) 10 mg DAILY PO 03/14/17 09:00 03/18/17 02:11 (Pravachol) 40 mg HS PO 03/14/17 21:00 03/19/17 21:53 (Tylenol) 650 mg Q4H PRN PO 03/15/17 12:00 (Benadryl) 25 mg Q4H PRN PO 03/15/17 12:00 (D50w (Vial) Inj) 50 ml UNSCH PRN IV PUSH 03/15/17 14:45 03/20/17 21:44 (Glucagon Inj) 1 mg UNSCH PRN OTHER 03/15/17 14:45 (NovoLOG SUPPLEMENTAL SCALE) 1 ACHS SLIDING SCALE SQ 03/15/17 17:00 03/16/17 21:18 ([place] 5-325 Mg) 1 tab Q4H PRN PO 03/17/17 17:00 ([place] 10-325 Mg) 1 tab Q4H PRN PO 03/17/17 17:00 03/18/17 10:34 (Morphine Inj) 4 mg Q3H PRN IV PUSH 03/17/17 17:00 (Narcan Inj) 0.4 mg UNSCH PRN IV PUSH 03/17/17 17:00 (Apresoline Inj) 10 mg Q1HR PRN IV PUSH 03/17/17 20:30 03/19/17 05:36 (Vasotec Inj) 1.25 mg Q6H PRN IV PUSH 03/17/17 20:30 03/21/17 04:29 (Flexeril) 10 mg Q8H PRN PO 03/18/17 11:00 (Cardizem) 90 mg Q6HR PO 03/19/17 12:00 03/20/17 06:22 Levofloxacin/ Dextrose 150 ml @ 100 mls/hr Q48H IV 03/19/17 16:00 03/19/17 17:01 Metronidazole 100 ml @ 100 mls/hr Q8H IV 03/19/17 17:00 03/21/17 01:28 Sodium Chloride 1,000 ml @ 84 mls/hr [id number] IV 03/20/17 16:00 (Lopressor Inj) 5 mg Q6H IV PUSH 03/21/17 09:00 Dextrose/Sodium Chloride 1,000 ml @ 100 mls/hr Q10H IV 03/21/17 10:00 Allergies Allergies Coded Allergies latex (Unverified Allergy, Unknown, Swelling, 03/13/17) Review of Systems All other ROS: ROS reviewed as documented in chart Exam I&O / VS Vital Signs Date Time Temp Pulse Resp B/P (MAP) Pulse Ox O2 Delivery O2 Flow Rate FiO2 03/21/17 08:33 100 21 03/21/17 08:00 98.7 97 24 191/84 (119) 100 03/21/17 04:38 98.3 94 16 171/78 (109) 98 03/21/17 04:00 96 03/21/17 03:00 87 03/21/17 02:00 75 03/21/17 01:00 101 03/21/17 00:47 98.0 104 17 166/82 (110) 100 03/20/17 23:56 99 03/20/17 23:00 93 03/20/17 22:00 98 03/20/17 21:35 Room Air 03/20/17 21:20 90 21 03/20/17 21:00 89 03/20/17 20:26 98.1 101 17 133/73 (93) 100 03/20/17 20:06 87 03/20/17 16:00 97.8 81 18 138/65 (89) 100 03/20/17 12:00 98.0 84 20 101/55 (70) 100 General: Alert and Oriented, No acute distress Eye: EOMI Respiratory: Non-labored respirations Neurologic: Alert, Oriented, CN II-XII intact, Normal DTR's Psychiatric: Cooperative, Appropriate mood & affect Exam Comments ox 3, cervical collar in place, follows, eomi, ou 3-2mm, no drift, no focal weakness, msr 1-2+ Objective Micro and Labs Laboratory Tests Test 03/21/17 03:06 White Blood Count 7.2 Red Blood Count 3.55 Hemoglobin 9.9 Hematocrit 29.6 Mean Corpuscular Volume 83.4 Mean Corpuscular Hemoglobin 28.0 Mean Corpuscular Hemoglobin Concent 33.6 Red Cell Distribution Width 15.0 Platelet Count 205 Mean Platelet Volume 9.5 Neutrophils (%) (Auto) 58.8 Lymphocytes (%) (Auto) 25.4 Monocytes (%) (Auto) 13.7 Eosinophils (%) (Auto) 1.6 Basophils (%) (Auto) 0.5 Neutrophils # (Auto) 4.2 Lymphocytes # (Auto) 1.8 Monocytes # (Auto) 1.0 Eosinophils # (Auto) 0.1 Basophils # (Auto) 0.0 CBC Comment DIFF FINAL Differential Comment Hematology Comments Blood Urea Nitrogen 30 Creatinine 2.18 Random Glucose 83 Total Protein 6.7 Albumin 2.6 Calcium Level 8.0 Phosphorus Level 2.0 Magnesium Level 1.5 Alkaline Phosphatase 59 Aspartate Amino Transf (AST/SGOT) 20 Alanine Aminotransferase (ALT/SGPT) 13 Total Bilirubin 0.4 Sodium Level 144 Potassium Level 3.5 Chloride Level 115 Carbon Dioxide Level 18.0 Anion Gap 11 Estimat Glomerular Filtration Rate 36 Date/Time Source Procedure Growth Status 03/19/17 11:45 Urine Clean Catch Urine Culture - Final NO GROWTH IN 48 HOURS. Complete Problem Qualifiers (1) HTN (hypertension): Qualified Codes: I10 - Essential (primary) hypertension Alex Huffman MD Mar 21, 2017 09:59
[2017-03-21] MEDS: SODIUM CHLORIDE 0.9% FLUSH 10 ML FLUSH IV FLUSH SCH ×2 (10:00→22:03)
[2017-03-21] MEDS: METOPROLOL TARTRATE 5 MG/5 ML VIAL IV PUSH SCH ×3 (10:04→22:05)
[2017-03-21] MEDS: DEXT 5%-NACL 0.45% 1000 ML INJ 1,000 ML IV SCH ×2 (10:17→22:20)
--- NOTE | 2017-03-21 10:43 | PD.PN.STU ---
Subjective Remarks patient is a 71 y/o male w/ h/o hyperlipidemia, diabetes, GERD, HTN, gout and renal insufficiency on HD 7 who was admitted for CVA and L sided weakness. Patient is s/p C2-3 anterior cervical discectomy and anterior interbody fusion and instrumentation 03/17. Patient developed possibly atelectasis vs aspiration pneumonia and started on incentive spirometry and IV Levaquin Patient has since developed dysphagia and failed swallow study on 03/20, was placed NPO Patient has no complaints today. Patient reports cough is improving and denies any SOB, chest pain, fever, or chills. Reports swallowing feels better Objective Vitals Vital Signs Date Time Temp Pulse Resp B/P (MAP) Pulse Ox O2 Delivery O2 Flow Rate FiO2 03/21/17 08:33 100 21 03/21/17 08:00 98.7 97 24 191/84 (119) 100 03/21/17 04:38 98.3 94 16 171/78 (109) 98 03/21/17 04:00 96 03/21/17 03:00 87 03/21/17 02:00 75 03/21/17 01:00 101 03/21/17 00:47 98.0 104 17 166/82 (110) 100 03/20/17 23:56 99 03/20/17 23:00 93 03/20/17 22:00 98 03/20/17 21:35 Room Air 03/20/17 21:20 90 21 03/20/17 21:00 89 03/20/17 20:26 98.1 101 17 133/73 (93) 100 03/20/17 20:06 87 03/20/17 16:00 97.8 81 18 138/65 (89) 100 03/20/17 12:00 98.0 84 20 101/55 (70) 100 I/O 03/20/17 03/20/17 03/20/17 03/21/17 03/21/17 03/21/17 07:00 15:00 23:00 07:00 15:00 23:00 Intake Total 120 ml 1400 ml 1323 ml 900 ml Output Total 100 ml 300 ml Balance 20 ml 1400 ml 1023 ml 900 ml Intake Oral 120 ml 450 ml IV Total 1400 ml 873 ml 900 ml Output Urine Total 100 ml 300 ml # Voids 2 3 # Bowel Movements 2 Result Diagram: 03/21/17 0306 03/21/17 0306 Other Results Vital Signs, 24 Hour Date Time Temp Pulse Resp B/P (MAP) Pulse Ox O2 Delivery O2 Flow Rate FiO2 03/21/17 08:33 100 21 03/21/17 08:00 98.7 97 24 191/84 (119) 100 03/21/17 04:38 98.3 94 16 171/78 (109) 98 03/21/17 04:00 96 03/21/17 03:00 87 03/21/17 02:00 75 03/21/17 01:00 101 03/21/17 00:47 98.0 104 17 166/82 (110) 100 03/20/17 23:56 99 03/20/17 23:00 93 03/20/17 22:00 98 03/20/17 21:35 Room Air 03/20/17 21:20 90 21 03/20/17 21:00 89 03/20/17 20:26 98.1 101 17 133/73 (93) 100 03/20/17 20:06 87 03/20/17 16:00 97.8 81 18 138/65 (89) 100 03/20/17 12:00 98.0 84 20 101/55 (70) 100 Allergies Coded Allergies latex (Unverified Allergy, Unknown, Swelling, 03/13/17) Intake/Outtake 03/21/17 03/21/17 11:00 23:00 Intake Total 2223 ml Output Total 300 ml Balance 1923 ml Laboratory Tests per Elizabeth Test 03/21/17 03:06 Blood Urea Nitrogen 30 MG/DL Creatinine 2.18 MG/DL Random Glucose 83 MG/DL Total Protein 6.7 GM/DL Albumin 2.6 GM/DL Calcium Level 8.0 MG/DL Phosphorus Level 2.0 MG/DL Magnesium Level 1.5 MG/DL Alkaline Phosphatase 59 U/L Aspartate Amino Transf (AST/SGOT) 20 U/L Alanine Aminotransferase (ALT/SGPT) 13 U/L Total Bilirubin 0.4 MG/DL Sodium Level 144 MEQ/L Potassium Level 3.5 MEQ/L Chloride Level 115 MEQ/L Carbon Dioxide Level 18.0 MEQ/L Red Blood Count 3.55 MIL/MM3 White Blood Count 7.2 TH/MM3 Active Scripts Active Reported Valsartan 320 Mg Tab 320 Mg PO DAILY Diltiazem ER 24 HR 360 Mg Caper 360 Mg PO DAILY Coumadin (Warfarin) 5 Mg Tab 5 Mg PO ,,MON,MON Coumadin (Warfarin) 2.5 Mg Tab 2.5 Mg PO MON,MON,MON Ferrous Sulfate 325 Mg (65 Mg Iron) Tablet 325 Mg PO BIDPC Ipratropium Nasal 0.06% [place] 1 [place] EACH NARE TID Loratadine Odt (Loratadine) 10 Mg Tab 10 Mg PO DAILY Omeprazole 20 Mg Tab 20 Mg PO DAILY Flunisolide Nasal [place] (Flunisolide) 0.025 Mg/Act Naspr 2 [place] EACH NARE BID Simvastatin 10 Mg Tab 10 Mg PO HS Carvedilol 25 Mg Tab 25 Mg PO BID Hydrochlorothiazide 25 Mg Tab 25 Mg PO DAILY Lantus Inj (Insulin Glargine) 1,000 Unit/10 Ml Vial 22 Units SQ HS Novolog Flexpen Inj (Insulin Aspart) 300 Unit/3 Ml Pen 1 SQ TID Tan[place]um 4-Pack Inj (Albiglutide) 50 Mg Pfpen 50 Mg SQ Q7D Imaging Last 72 hours Impressions Modified Barium Swallow 03/20/17 0000 Signed Impressions: Service Date/Time: Monday, March 20, 2017 00:00 - CONCLUSION: Aspiration. Basil Lewis MD Chest X-Ray 03/19/17 0000 Signed Impressions: Service Date/Time: Sunday, March 19, 2017 10:14 - CONCLUSION: Left lower lobe atelectasis versus airspace consolidation. Recommend repeat exam with upright PA lateral views of the chest. Amanda Sarmiento MD Objective Remarks GENERAL: WN/WD pleasant male in no apparent distress. SKIN: Warm and dry. HEAD: Atraumatic. Normocephalic. EYES: Pupils equal and round. No scleral icterus. No injection or drainage. ENT: No nasal bleeding or discharge. Mucous membranes pink and moist. NECK: Trachea midline. No JVD. Neck immobilizer in place CARDIOVASCULAR: Regular rate and rhythm. RESPIRATORY: No accessory muscle use. Clear to auscultation. Breath sounds equal bilaterally. GASTROINTESTINAL: Abdomen soft, non-tender, nondistended. Hepatic and splenic margins not palpable. MUSCULOSKELETAL: Extremities without clubbing, cyanosis, or edema. No obvious deformities. NEUROLOGICAL: Awake and alert. No obvious cranial nerve deficits. Motor grossly within normal limits. Five out of 5 muscle strength in the arms and legs. Normal speech. PSYCHIATRIC: Appropriate mood and affect; insight and judgment normal. Medications and IVs Current Medications Medications (Trade) Dose Ordered Sig/Floyd Route Start Time Stop Time Status Last Admin (NS Flush) 2 ml BID IV FLUSH 03/13/17 21:00 03/20/17 09:31 (NS Flush) 2 ml UNSCH PRN IV FLUSH 03/13/17 17:00 (Levemir Inj) 22 units HS SQ 03/13/17 21:00 03/19/17 22:08 (Protonix) 20 mg DAILY PO 03/14/17 09:00 03/20/17 09:30 (Coreg) 25 mg BID PO 03/14/17 09:00 03/20/17 09:30 (Cardizem Cd) 360 mg DAILY PO 03/14/17 09:00 Future Hold 03/18/17 09:26 (Ferrous Sulfate) 325 mg BIDPC PO 03/14/17 09:00 03/20/17 09:30 (Claritin) 10 mg DAILY PO 03/14/17 09:00 03/18/17 02:11 (Pravachol) 40 mg HS PO 03/14/17 21:00 03/19/17 21:53 (Tylenol) 650 mg Q4H PRN PO 03/15/17 12:00 (Benadryl) 25 mg Q4H PRN PO 03/15/17 12:00 (D50w (Vial) Inj) 50 ml UNSCH PRN IV PUSH 03/15/17 14:45 03/20/17 21:44 (Glucagon Inj) 1 mg UNSCH PRN OTHER 03/15/17 14:45 (NovoLOG SUPPLEMENTAL SCALE) 1 ACHS SLIDING SCALE SQ 03/15/17 17:00 03/16/17 21:18 ([place] 5-325 Mg) 1 tab Q4H PRN PO 03/17/17 17:00 ([place] 10-325 Mg) 1 tab Q4H PRN PO 03/17/17 17:00 03/18/17 10:34 (Morphine Inj) 4 mg Q3H PRN IV PUSH 03/17/17 17:00 (Narcan Inj) 0.4 mg UNSCH PRN IV PUSH 03/17/17 17:00 (Apresoline Inj) 10 mg Q1HR PRN IV PUSH 03/17/17 20:30 03/19/17 05:36 (Vasotec Inj) 1.25 mg Q6H PRN IV PUSH 03/17/17 20:30 03/21/17 04:29 (Flexeril) 10 mg Q8H PRN PO 03/18/17 11:00 (Cardizem) 90 mg Q6HR PO 03/19/17 12:00 03/20/17 06:22 Levofloxacin/ Dextrose 150 ml @ 100 mls/hr Q48H IV 03/19/17 16:00 03/19/17 17:01 Metronidazole 100 ml @ 100 mls/hr Q8H IV 03/19/17 17:00 03/21/17 10:04 Sodium Chloride 1,000 ml @ 84 mls/hr [id number] IV 03/20/17 16:00 (Lopressor Inj) 5 mg Q6H IV PUSH 03/21/17 09:00 03/21/17 10:04 Dextrose/Sodium Chloride 1,000 ml @ 100 mls/hr Q10H IV 03/21/17 10:00 03/21/17 10:17 A/P Assessment and Plan Patient is a 71 y/o male who was admitted for left sided weakness and possible CVA. neurology was consulted and revealed C2-3 disc protrusion. Patient is s/p C2-3 anterior cervical discectomy and anterior interbody fusion and instrumentation. 1) C2-3 disc protrusion - S/p C2-3 anterior cervical discectomy and anterior interbody fusion and instrumentation. - neuro exam grossly normal - Post surgical edema in neck most likely contributing to dysphagia per neurosurgery 2) Atrial Fib -currently on at home regiment of coreg for rate control. However patient is NPO - Will monitor for RVR and place on cardizem drip if need be -Warfarin has been held for surgery and previous INR of 1.2 on 03/17 - Will restart warfarin with neurosurgery's approval. 3) Hyperlipidemia - Currently NPO, hold home medications until dysphagia has improved 4) Diabetes - Glucose has been below 100 for past 3 days on SSI and levemir. Levemir has been placed on hold due to NPO status - Will monitor glucose status and push D5W if sugars remain below 100. - Goal is to maintain sugars 140-180 if possible 5) Hypertension - BP has peaked at 191/84 this AM 03/21. Patient is currently in IV Hydralazine prn, however it has not been given since 03/19 - Due to NPO status will place patient on IV metoprolol to control blood pressures 6) Dysphagia - Patient failed modified barium swallow on 03/[address] - Placed on NPO - Spoke with neurosurgery and dysphagia is most likely due to post surgical edema in the neck. Should resolved with time. Eleazar Edwards M3 Mar 21, 2017 10:43
[2017-03-21] MEDS: hydrALAZINE HCL 20 MG/ML VIAL IV PUSH PRN (12:15)
[2017-03-21] MEDS: LEVOFLOXACIN 750 MG PREMIX INJ 150 ML IV SCH (16:27)
[2017-03-21] MEDS: DEXAMETHASONE SOD PHOS 4 MG/ML VIAL IV PUSH SCH (16:31)
--- NOTE | 2017-03-21 19:41 | HHI.PR ---
Subjective Remarks Patient states hoarseness is improved. Denies fevers, chills. Denies cp, sob. Cough is improving. Objective Vitals Vital Signs Date Time Temp Pulse Resp B/P (MAP) Pulse Ox O2 Delivery O2 Flow Rate FiO2 03/21/17 18:51 170/84 (112) 03/21/17 16:12 95 03/21/17 16:00 98.0 96 17 192/92 (125) 100 03/21/17 12:15 196/60 (105) 03/21/17 12:00 92 03/21/17 12:00 196/90 (125) 03/21/17 11:30 182/84 (116) 03/21/17 11:00 98.4 90 22 181/87 (118) 100 03/21/17 11:00 184/82 (116) 03/21/17 08:33 100 21 03/21/17 08:00 Room Air 03/21/17 08:00 96 03/21/17 08:00 98.7 97 24 191/84 (119) 100 03/21/17 04:38 98.3 94 16 171/78 (109) 98 03/21/17 04:00 96 03/21/17 03:00 87 03/21/17 02:00 75 03/21/17 01:00 101 03/21/17 00:47 98.0 104 17 166/82 (110) 100 03/20/17 23:56 99 03/20/17 23:00 93 03/20/17 22:00 98 03/20/17 21:35 Room Air 03/20/17 21:20 90 21 03/20/17 21:00 89 03/20/17 20:26 98.1 101 17 133/73 (93) 100 03/20/17 20:06 87 I/O 03/20/17 03/20/17 03/20/17 03/21/17 03/21/17 03/21/17 07:00 15:00 23:00 07:00 15:00 23:00 Intake Total 120 ml 1400 ml 1323 ml 900 ml Output Total 100 ml 300 ml 775 ml Balance 20 ml 1400 ml 1023 ml 900 ml -775 ml Intake Oral 120 ml 450 ml IV Total 1400 ml 873 ml 900 ml Output Urine Total 100 ml 300 ml 775 ml # Voids 2 3 # Bowel Movements 2 2 Result Diagram: 03/21/17 0306 03/21/17 0306 Imaging Last Impressions Modified Barium Swallow 03/20/17 0000 Signed Impressions: Service Date/Time: Monday, March 20, 2017 00:00 - CONCLUSION: Aspiration. Basil Lewis MD Chest X-Ray 03/19/17 0000 Signed Impressions: Service Date/Time: Sunday, March 19, 2017 10:14 - CONCLUSION: Left lower lobe atelectasis versus airspace consolidation. Recommend repeat exam with upright PA lateral views of the chest. Amanda Sarmiento MD Cervical Spine X-Ray 03/17/17 0000 Signed Impressions: Service Date/Time: Friday, March 17, 2017 12:12 - CONCLUSION: Normal alignment with fusion as above.. Richard Alvarez MD FACR Cervical Spine MRI 03/14/17 0000 Signed Impressions: Service Date/Time: Tuesday, March 14, 2017 09:28 - CONCLUSION: 1. At C2-3 there is a large central disc protrusion with severe canal stenosis and compression of the cord to an AP diameter of 2 or 3 mm. There is myelomalacia of the cord below this level to the C5-6 level. Previous fusion C3-4-5 as above. Raman Mcmahon MD Head CT 03/13/17 1341 Signed Impressions: Service Date/Time: Monday, March 13, 2017 14:52 - CONCLUSION: Negative for an acute process. Richard Alvarez MD FACR Head Magnetic Resonance Angiography 03/13/17 0000 Signed Impressions: Service Date/Time: Monday, March 13, 2017 17:47 - CONCLUSION: Normal examination for a patient of this age. Raman Mcmahon MD Cervical Spine CT 03/13/17 0000 Signed Impressions: Service Date/Time: Monday, March 13, 2017 16:25 - CONCLUSION: 1. Anterior fixation at C3-5 with near-complete bony fusion. 2. Adjacent level disease at C2-3 with diffuse disc bulge and uncovertebral osteophytes resulting in severe spinal canal stenosis. Rajeev Altamirano MD Carotid Artery Ultrasound 03/13/17 0000 Signed Impressions: Service Date/Time: Monday, March 13, 2017 18:48 - CONCLUSION: 1. Minimal plaque visualized without hemodynamically significant stenosis. Raman Mcmahon MD Brain MRI 03/13/17 0000 Signed Impressions: Service Date/Time: Monday, March 13, 2017 17:47 - CONCLUSION: 1. Mild white matter ischemic changes. No recent infarct. No mass, hemorrhage or shift. Raman Mcmahon MD Objective Remarks GENERAL: alert, Oriented x 3, NAD. SKIN: Warm and dry. HEAD: Normocephalic. EYES: No scleral icterus. No injection or drainage. NECK: Anterior cervical incision with bandage in place that is dry. DENAE drain in place. CARDIOVASCULAR: Regular rate and rhythm without murmurs, gallops, or rubs. RESPIRATORY: Breath sounds equal bilaterally. No accessory muscle use. GASTROINTESTINAL: Abdomen soft, non-tender, nondistended. MUSCULOSKELETAL: No cyanosis, or edema. BACK: Nontender without obvious deformity. No CVA tenderness. Procedures 1. C2-3 anterior cervical discectomy, resection herniated nucleus pulposus with spinal cord decompression 2. C2- 3 anterior interbody fusion, composite allograft bone 3. C2-3 anterior cervical instrumentation 4. Removal of previous C3-C4 level anterior cervical instrumentation Medications and IVs Current Medications Medications (Trade) Dose Ordered Sig/Floyd Route Start Time Stop Time Status Last Admin (NS Flush) 2 ml BID IV FLUSH 03/13/17 21:00 03/21/17 22:03 (NS Flush) 2 ml UNSCH PRN IV FLUSH 03/13/17 17:00 (Levemir Inj) 22 units HS SQ 03/13/17 21:00 03/19/17 22:08 (Protonix) 20 mg DAILY PO 03/14/17 09:00 03/20/17 09:30 (Coreg) 25 mg BID PO 03/14/17 09:00 03/20/17 09:30 (Cardizem Cd) 360 mg DAILY PO 03/14/17 09:00 Future Hold 03/18/17 09:26 (Ferrous Sulfate) 325 mg BIDPC PO 03/14/17 09:00 03/20/17 09:30 (Claritin) 10 mg DAILY PO 03/14/17 09:00 03/18/17 02:11 (Pravachol) 40 mg HS PO 03/14/17 21:00 03/19/17 21:53 (Tylenol) 650 mg Q4H PRN PO 03/15/17 12:00 (Benadryl) 25 mg Q4H PRN PO 03/15/17 12:00 (D50w (Vial) Inj) 50 ml UNSCH PRN IV PUSH 03/15/17 14:45 03/20/17 21:44 (Glucagon Inj) 1 mg UNSCH PRN OTHER 03/15/17 14:45 (NovoLOG SUPPLEMENTAL SCALE) 1 ACHS SLIDING SCALE SQ 03/15/17 17:00 03/21/17 22:21 ([place] 5-325 Mg) 1 tab Q4H PRN PO 03/17/17 17:00 ([place] 10-325 Mg) 1 tab Q4H PRN PO 03/17/17 17:00 03/18/17 10:34 (Morphine Inj) 4 mg Q3H PRN IV PUSH 03/17/17 17:00 (Narcan Inj) 0.4 mg UNSCH PRN IV PUSH 03/17/17 17:00 (Apresoline Inj) 10 mg Q1HR PRN IV PUSH 03/17/17 20:30 03/21/17 12:15 (Vasotec Inj) 1.25 mg Q6H PRN IV PUSH 03/17/17 20:30 03/21/17 04:29 (Flexeril) 10 mg Q8H PRN PO 03/18/17 11:00 (Cardizem) 90 mg Q6HR PO 03/19/17 12:00 03/20/17 06:22 Levofloxacin/ Dextrose 150 ml @ 100 mls/hr Q48H IV 03/19/17 16:00 03/21/17 16:27 Metronidazole 100 ml @ 100 mls/hr Q8H IV 03/19/17 17:00 03/22/17 00:52 Sodium Chloride 1,000 ml @ 84 mls/hr [id number] IV 03/20/17 16:00 (Lopressor Inj) 5 mg Q6H IV PUSH 03/21/17 09:00 03/22/17 03:59 Dextrose/Sodium Chloride 1,000 ml @ 100 mls/hr Q10H IV 03/21/17 10:00 03/21/17 22:20 (Decadron Inj) 4 mg DAILY IV PUSH 03/21/17 13:30 03/21/17 16:31 A/P Problem List: (1) TIA (transient ischemic attack) ICD Code: G45.9 - Transient cerebral ischemic attack, unspecified Status: Acute (2) Cervical stenosis of spinal canal ICD Code: M48.02 - Spinal stenosis, cervical region (3) Dislocation of C2/C3 cervical vertebrae ICD Code: S13.131A - Dislocation of C2/C3 cervical vertebrae, initial encounter Assessment and Plan Mr. Shin is a pleasant 71 year old male who came to the hospital due to left sided weakness, numbness. Neurology evaluated patient. Imaging studies indicated C2-3 disc protrusion with severe canal stenosis and compression of gthe cord to an AP diameter of 2 or 3 mm. Neurosurgery evaluated patient and recommended surgery. - C2-3 disc protrusion - Severe cervical spinal canal stenosis - Discussed with Dr. Carlson who would like to take patient to surgery later this afternoon. - Will get STAT type and match and provide patient one unit of FFP and Vitamin K 2.5mg - PT/INR after FFP is given. - 03/16 INR is 1.4 after FFP. for Or in am as per neurosurgery documentation. - 03/17 INR down to 1.2. For Or later today. - 03/18 Sp C2 -3 anterior cervical discectomy, resection herniated nucleus pulposus with spinal cord decompression - Atrial fibrillation - Hyperlipidemia - Uncontrolled hypertension. - Continue carvedilol 25 mg twice a day, diltiazem 360 mg by mouth daily. - Patient is on Coumadin for anticoagulation. Discussed with patient regarding one of the newer medications such as apixaban or Edoxaban. - Patient will discuss with his telecommunications officer regarding Apixaban or Edoxaban for Afib anti-coagulation. - Continue pravastatin 40 mg daily at bedtime. - 03/18 rate controlled. Resume Coumadin when cleared by neurosurgery. - 03/20 Patient npo and therefore not able to take oral medications. Will monitor heart rate and if goes in RVR then will consider starting a Cardizem drip. - 03/21 A fib seems to be rate controlled however patient still NPO. Will start on IV metoprolol. Bp severely elevated. - Diabetes mellitus -Hemoglobin A1c 8.7. Continue Levemir 22 units daily at bedtime, sliding scale insulin. - CINTHIA on CKD stage III -Creatinine admission was 3.1, trended to 2.3. As per review of records creatinine in 2014 2.5. Likely at baseline. Continue to monitor BUN/creatinine , avoid nephrotoxins, monitor strict I's and O's. - CINTHIA seems to have resolved. - Fever/sepsis/uti/aspiration pna - tmax of 100.9, fever. Suspected hospital acquired vs aspiration pna. - CXR ordered earlier, shows left lower lobe consolidation vs atelectasis. - Continue incentive spiramotry. Continue IV Levaquin and IV Flagyl. - UA (+) urine culture negative. - Sputum cultures ordered - not sent Dysphagia - Patient evaluated by speech therapy. - 03/20 Modified barium swallow and showed - keep npo. Continue IV lfuids for now. - 03/21 Will consult ENT. Will also give a dose of Dexamethasone. Full code. Warfarin (currently on hold), SCDs. Discharge Planning Continue to monitor in med surg. Francois Montes MD Mar 21, 2017 19:41
[2017-03-21] MEDS: PRAVASTATIN SOD 40 MG TAB PO SCH (21:00)
[2017-03-21] MEDS: INSULIN DETEMIR 100 UNITS/ML VIAL SQ SCH (21:00)
[2017-03-22] VITALS (8 sets, daily range): BP systolic 117–195; BP diastolic 65–97; PULSE 86–109; RESP 15–22; TEMP 97.7–98.5; O2SAT 96–100
[2017-03-22] MEDS: DILTIAZEM HCL 90 MG TAB PO SCH ×3 (00:04→18:23)
[2017-03-22] MEDS: metroNIDAZOLE 500 MG INJ 100 ML IV SCH ×3 (00:52→18:24)
[2017-03-22] MEDS: SODIUM CHLOR 0.9% 1000 ML INJ 1,000 ML IV SCH ×2 (03:45→16:00)
[2017-03-22] MEDS: METOPROLOL TARTRATE 5 MG/5 ML VIAL IV PUSH SCH ×2 (03:59→09:22)
--- NOTE | 2017-03-22 08:48 | HHI.NSPN ---
History Chief Complaint: None Interval History 03/14: 71 yo male states left upper greater than lE numbnes, weakness, loss of coordination starting last Monday and lasting 2 days. No KERR, nausea, fever. Sent to ER by his pain management specialist today for above symptoms 03/15: When seen this afternoon the patient is awake and watching TV with his . He states that he is doing good. He denied any headache, dizziness, and any pain, numbness or tingling to the extremities. Patient was receiving fresh frozen plasma and has received oral phytonadione for his elevated INR. 03/16: This afternoon the patient is awake and watching TV with his . He says he is doing good and he had no complaints. 03/17: The patient went for a C2-3 anterior cervical discectomy and anterior interbody fusion and instrumentation. Post-operatively the patient was transferred to the ISC unit for further monitoring and care. 03/18: Patient awake and alert. Patient's only complaint this morning is at the oxygen is drying his nose and his mouth out. He denies any significant sore throat. Denies any difficulty swallowing. No radiculopathy or paresthesias in the upper extremities. 03/19: Patient denies any neck pain, radiculopathy, or paresthesias. He complains of difficulty swallowing. He is requiring when necessary IV blood pressure medication since he is having difficulty swallowing he is unable to take pills. Speech therapy as following patient. 03/20: When seen this morning the patient was getting ready to go for a barium swallow. He denied any difficulty swallowing when seen. He had no midline cervical spine or surgical incision tenderness. His sensation and motor strength are intact. Nursing did say that the patient stated he was ready to go home. 03/21: This morning the patient is awake and alert. His systolic blood pressure is noted to be elevated to 191 mm Hg. The patient is NPO due to aspiration on the MBSS yesterday morning. He remains neurologically intact. He does have some mild tenderness to the surgical incision. After the patient was seen Nursing was getting ready to give metoprolol intravenously. Nursing did report that the patient has had some hypoglycemia. 03/22: The patient is sitting on the edge of the bed with the cervical collar on. Speech Therapy is at the bedside working with him. He says he is doing good and had no complaints. He is intact neurologically. He remains hypertensive when seen. Exam Results 03/20/17 03/20/17 03/21/17 03/21/17 03/22/17 03/22/17 06:00 18:00 06:00 18:00 06:00 18:00 Intake Total 1570 ml 1850 ml 2023 ml Output Total 100 ml 300 ml 775 ml Balance 1470 ml 1550 ml 1248 ml Intake Oral 120 ml 450 ml IV Total 1450 ml 1400 ml 2023 ml Output Urine Total 100 ml 300 ml 775 ml # Voids 2 3 4 # Bowel Movements 2 2 Vital Signs Date Time Temp Pulse Resp B/P (MAP) Pulse Ox O2 Delivery O2 Flow Rate FiO2 03/22/17 04:11 97.7 99 20 193/94 (127) 100 03/22/17 00:00 98.0 89 18 175/92 (119) 100 03/21/17 22:07 99 21 03/21/17 20:34 98.3 97 20 191/98 (129) 100 03/21/17 20:00 94 03/21/17 20:00 Room Air 03/21/17 18:51 170/84 (112) 03/21/17 16:12 95 03/21/17 16:00 98.0 96 17 192/92 (125) 100 03/21/17 12:15 196/60 (105) 03/21/17 12:00 92 03/21/17 12:00 196/90 (125) 03/21/17 11:30 182/84 (116) 03/21/17 11:00 98.4 90 22 181/87 (118) 100 03/21/17 11:00 184/82 (116) 03/21/17 08:33 100 21 03/21/17 08:00 Room Air 03/21/17 08:00 96 03/21/17 08:00 98.7 97 24 191/84 (119) 100 03/21/17 04:38 98.3 94 16 171/78 (109) 98 03/21/17 04:00 96 03/21/17 03:00 87 03/21/17 02:00 75 03/21/17 01:00 101 03/21/17 00:47 98.0 104 17 166/82 (110) 100 03/20/17 23:56 99 03/20/17 23:00 93 03/20/17 22:00 98 03/20/17 21:35 Room Air 03/20/17 21:20 90 21 03/20/17 21:00 89 03/20/17 20:26 98.1 101 17 133/73 (93) 100 03/20/17 20:06 87 03/20/17 16:00 97.8 81 18 138/65 (89) 100 03/20/17 12:00 98.0 84 20 101/55 (70) 100 03/20/17 08:34 99 03/20/17 08:30 Room Air 03/20/17 08:00 98.4 87 21 135/63 (87) 99 03/20/17 06:59 85 03/20/17 04:00 76 03/20/17 04:00 98.1 79 16 123/58 (79) 100 03/20/17 00:00 83 03/20/17 00:00 98.4 84 16 130/60 (83) 100 03/19/17 22:06 100 21 03/19/17 21:00 92 03/19/17 21:00 Room Air 03/19/17 20:00 98.8 95 16 176/74 (108) 100 03/19/17 16:00 98.7 93 21 137/92 (107) 100 03/19/17 15:00 88 03/19/17 12:00 99.3 103 16 163/72 (102) 100 03/19/17 09:20 99 21 Physical Examination GENERAL: Awake & alert, sitting on the edge of the bed working w/Speech Therapy , his is visiting. Slightly flat affect. Readily interacts. No apparent distress. HEENT: Normocephalic, atraumatic. NECK: Vanlue J cervical collar in place. Midline cervical spine NTTP. Left anterior cervical incision NTTP w/steri-strips intact, no drainage, erythema or streaking noted. DENAE drain insertion site w/o any drainage, erythema or streaking noted. MUSCULOSKELETAL: WESLEY w/o difficulty. NEUROLOGIC: AAOx3. Speech clear & appropriate. Follows commands w/o difficulty. Sensation intact to light touch to all extremities. Motor strength is 5/5 to all major flexion & extension muscle groups to include hand intrinsics & extrinsics except for the left extensor hallucis longus is 3+ to 4/5. Lab, Micro, Other Results Recent Impressions Modified Barium Swallow 03/20/17 0000 Signed Impressions: Service Date/Time: Monday, March 20, 2017 00:00 - CONCLUSION: Aspiration. Basil Lewis MD Laboratory Tests Test 03/19/17 11:10 03/19/17 11:45 03/21/17 03:06 White Blood Count 9.2 TH/MM3 7.2 TH/MM3 Red Blood Count 3.55 MIL/MM3 3.55 MIL/MM3 Hemoglobin 9.8 GM/DL 9.9 GM/DL Hematocrit 30.0 % 29.6 % Mean Corpuscular Volume 84.5 FL 83.4 FL Mean Corpuscular Hemoglobin 27.8 PG 28.0 PG Mean Corpuscular Hemoglobin Concent 32.9 % 33.6 % Red Cell Distribution Width 14.8 % 15.0 % Platelet Count 225 TH/MM3 205 TH/MM3 Mean Platelet Volume 8.8 FL 9.5 FL Neutrophils (%) (Auto) 67.0 % 58.8 % Lymphocytes (%) (Auto) 19.0 % 25.4 % Monocytes (%) (Auto) 12.3 % 13.7 % Eosinophils (%) (Auto) 1.1 % 1.6 % Basophils (%) (Auto) 0.6 % 0.5 % Neutrophils # (Auto) 6.2 TH/MM3 4.2 TH/MM3 Lymphocytes # (Auto) 1.7 TH/MM3 1.8 TH/MM3 Monocytes # (Auto) 1.1 TH/MM3 1.0 TH/MM3 Eosinophils # (Auto) 0.1 TH/MM3 0.1 TH/MM3 Basophils # (Auto) 0.1 TH/MM3 0.0 TH/MM3 CBC Comment DIFF FINAL DIFF FINAL Differential Comment Blood Urea Nitrogen 41 MG/DL 30 MG/DL Creatinine 2.44 MG/DL 2.18 MG/DL Random Glucose 75 MG/DL 83 MG/DL Total Protein 6.9 GM/DL 6.7 GM/DL Albumin 2.6 GM/DL 2.6 GM/DL Calcium Level 8.1 MG/DL 8.0 MG/DL Phosphorus Level 2.9 MG/DL 2.0 MG/DL Magnesium Level 1.6 MG/DL 1.5 MG/DL Alkaline Phosphatase 63 U/L 59 U/L Aspartate Amino Transf (AST/SGOT) 22 U/L 20 U/L Alanine Aminotransferase (ALT/SGPT) 17 U/L 13 U/L Total Bilirubin 0.6 MG/DL 0.4 MG/DL Sodium Level 141 MEQ/L 144 MEQ/L Potassium Level 4.3 MEQ/L 3.5 MEQ/L Chloride Level 113 MEQ/L 115 MEQ/L Carbon Dioxide Level 13.5 MEQ/L 18.0 MEQ/L Anion Gap 15 MEQ/L 11 MEQ/L Estimat Glomerular Filtration Rate 32 ML/MIN 36 ML/MIN Urine Color YELLOW Urine Turbidity HAZY Urine pH 5.0 Urine Specific [place] 1.013 Urine Protein 30 mg/dL Urine Glucose (UA) NEG mg/dL Urine Ketones 40 mg/dL Urine Occult Blood NEG Urine Nitrite NEG Urine Bilirubin NEG Urine Urobilinogen LESS THAN 2.0 MG/DL Urine Leukocyte Esterase MOD Urine RBC 1 /hpf Urine WBC 17 /hpf Urine WBC Clumps RARE Urine Squamous Epithelial Cells <1 /hpf Urine Bacteria FEW /hpf Urine Mucus FEW /lpf Microscopic Urinalysis Comment CULTURE INDICATED Hematology Comments Medical Decision Making Impression and Plan Impression: Severe C2-3 stenosis with myelopathy Patient is doing good and stable neurologically. Hypertension. Physical Therapy recommended inpatient rehab for further therapy. Occupational Therapy felt that the patient was able to be discharged home safely w/o any skilled needs. MBSS demonstrated patient w/severe pharyngeal dysphagia w/confirmed aspiration events w/all consistencies secondary to post-surgical edema. POD #5 () s/p : 1. C2-3 anterior cervical discectomy, resection herniated nucleus pulposus with spinal cord decompression 2. C2- 3 anterior interbody fusion, composite allograft bone 3. C2-3 anterior cervical instrumentation 4. Removal of previous C3-C4 level anterior cervical instrumentation Postoperative Diagnosis: (1) Cervical disc disease with myelopathy (2) HNP (herniated nucleus pulposus), cervical (3) Cervical spinal stenosis C2 3 herniated nucleus pulposus Cervical myelopathy Plan: Discussed plan of care with patient & . Discussed plan of care with Speech Therapy & Nursing ST for swallowing. Mobilise patient w/assistance as needed. PT/OT eval & tx. José Miguel Trinidad cervical collar. At present the patient's SBP remains elevated, would recommend considering transfer back to [facility] for SBP management if unable to control on med/surg floor. Melchor Daniel Mar 22, 2017 08:48
[2017-03-22] MEDS: LORATADINE 10 MG TAB PO SCH (09:20)
[2017-03-22] MEDS: CARVEDILOL 12.5 MG TAB PO SCH ×2 (09:20→21:52)
[2017-03-22] MEDS: FERROUS SULFATE 325 MG (65 MG ELEMENTAL IRON) TAB PO SCH ×2 (09:20→18:24)
[2017-03-22] MEDS: PANTOPRAZOLE SOD 20 MG DELAYED RELEASE TAB PO SCH (09:20)
[2017-03-22] MEDS: DEXAMETHASONE SOD PHOS 4 MG/ML VIAL IV PUSH SCH (09:21)
[2017-03-22] MEDS: SODIUM CHLORIDE 0.9% FLUSH 10 ML FLUSH IV FLUSH SCH ×2 (09:26→21:53)
[2017-03-22] MEDS: INSULIN ASPART SUPPLEMENTAL SCALE SQ SCH ×4 (09:28→21:53)
[2017-03-22] MEDS ORDERED: LABETALOL HCL 100 MG/20 ML VIAL IV PUSH ONE (09:40)
[2017-03-22] MEDS ORDERED: LABETALOL HCL 100 MG/20 ML VIAL IV PUSH PRN (13:00)
--- NOTE | 2017-03-22 14:47 | HHI.PR ---
Subjective Remarks Patient states voice is better. Afebrile cough is much improved afebrile denies cp/sob on room air Objective Vitals Vital Signs Date Time Temp Pulse Resp B/P (MAP) Pulse Ox O2 Delivery O2 Flow Rate FiO2 03/22/17 12:00 98.0 109 22 117/73 (88) 98 03/22/17 08:51 100 03/22/17 08:00 97.9 104 18 195/97 (129) 100 03/22/17 04:11 97.7 99 20 193/94 (127) 100 03/22/17 00:00 98.0 89 18 175/92 (119) 100 03/21/17 22:07 99 21 03/21/17 20:34 98.3 97 20 191/98 (129) 100 03/21/17 20:00 94 03/21/17 20:00 Room Air 03/21/17 18:51 170/84 (112) 03/21/17 16:12 95 03/21/17 16:00 98.0 96 17 192/92 (125) 100 I/O 03/21/17 03/21/17 03/21/17 03/22/17 03/22/17 03/22/17 07:00 15:00 23:00 07:00 15:00 23:00 Intake Total 1323 ml 1000 ml 150 ml Output Total 300 ml 775 ml Balance 1023 ml 1000 ml -625 ml Intake Oral 450 ml IV Total 873 ml 1000 ml 150 ml Output Urine Total 300 ml 775 ml # Voids 3 2 2 # Bowel Movements 2 Result Diagram: 03/21/17 0306 03/21/17 0306 Imaging Last Impressions Modified Barium Swallow 03/20/17 0000 Signed Impressions: Service Date/Time: Monday, March 20, 2017 00:00 - CONCLUSION: Aspiration. Basil Lewis MD Chest X-Ray 03/19/17 0000 Signed Impressions: Service Date/Time: Sunday, March 19, 2017 10:14 - CONCLUSION: Left lower lobe atelectasis versus airspace consolidation. Recommend repeat exam with upright PA lateral views of the chest. Amanda Sarmiento MD Cervical Spine X-Ray 03/17/17 0000 Signed Impressions: Service Date/Time: Friday, March 17, 2017 12:12 - CONCLUSION: Normal alignment with fusion as above.. Richard Alvarez MD FACR Cervical Spine MRI 03/14/17 0000 Signed Impressions: Service Date/Time: Tuesday, March 14, 2017 09:28 - CONCLUSION: 1. At C2-3 there is a large central disc protrusion with severe canal stenosis and compression of the cord to an AP diameter of 2 or 3 mm. There is myelomalacia of the cord below this level to the C5-6 level. Previous fusion C3-4-5 as above. Raman Mcmahon MD Head CT 03/13/17 1341 Signed Impressions: Service Date/Time: Monday, March 13, 2017 14:52 - CONCLUSION: Negative for an acute process. Richard Alvarez MD FACR Head Magnetic Resonance Angiography 03/13/17 0000 Signed Impressions: Service Date/Time: Monday, March 13, 2017 17:47 - CONCLUSION: Normal examination for a patient of this age. Raman Mcmahon MD Cervical Spine CT 03/13/17 0000 Signed Impressions: Service Date/Time: Monday, March 13, 2017 16:25 - CONCLUSION: 1. Anterior fixation at C3-5 with near-complete bony fusion. 2. Adjacent level disease at C2-3 with diffuse disc bulge and uncovertebral osteophytes resulting in severe spinal canal stenosis. Rajeev Altamirano MD Carotid Artery Ultrasound 03/13/17 0000 Signed Impressions: Service Date/Time: Monday, March 13, 2017 18:48 - CONCLUSION: 1. Minimal plaque visualized without hemodynamically significant stenosis. Raman Mcmahon MD Brain MRI 03/13/17 0000 Signed Impressions: Service Date/Time: Monday, March 13, 2017 17:47 - CONCLUSION: 1. Mild white matter ischemic changes. No recent infarct. No mass, hemorrhage or shift. Raman Mcmahon MD Objective Remarks GENERAL: alert, Oriented x 3, NAD. SKIN: Warm and dry. HEAD: Normocephalic. EYES: No scleral icterus. No injection or drainage. NECK: Anterior cervical incision with bandage in place that is dry. DENAE drain in place. CARDIOVASCULAR: Regular rate and rhythm without murmurs, gallops, or rubs. RESPIRATORY: Breath sounds equal bilaterally. No accessory muscle use. GASTROINTESTINAL: Abdomen soft, non-tender, nondistended. MUSCULOSKELETAL: No cyanosis, or edema. BACK: Nontender without obvious deformity. No CVA tenderness. Procedures 1. C2-3 anterior cervical discectomy, resection herniated nucleus pulposus with spinal cord decompression 2. C2- 3 anterior interbody fusion, composite allograft bone 3. C2-3 anterior cervical instrumentation 4. Removal of previous C3-C4 level anterior cervical instrumentation Medications and IVs Current Medications Medications (Trade) Dose Ordered Sig/Floyd Route Start Time Stop Time Status Last Admin (NS Flush) 2 ml BID IV FLUSH 03/13/17 21:00 03/21/17 22:03 (NS Flush) 2 ml UNSCH PRN IV FLUSH 03/13/17 17:00 (Levemir Inj) 22 units HS SQ 03/13/17 21:00 03/19/17 22:08 (Protonix) 20 mg DAILY PO 03/14/17 09:00 03/22/17 09:20 (Coreg) 25 mg BID PO 03/14/17 09:00 03/22/17 09:20 (Cardizem Cd) 360 mg DAILY PO 03/14/17 09:00 Future Hold 03/18/17 09:26 (Ferrous Sulfate) 325 mg BIDPC PO 03/14/17 09:00 03/22/17 09:20 (Claritin) 10 mg DAILY PO 03/14/17 09:00 03/22/17 09:20 (Pravachol) 40 mg HS PO 03/14/17 21:00 03/19/17 21:53 (Tylenol) 650 mg Q4H PRN PO 03/15/17 12:00 (Benadryl) 25 mg Q4H PRN PO 03/15/17 12:00 (D50w (Vial) Inj) 50 ml UNSCH PRN IV PUSH 03/15/17 14:45 03/20/17 21:44 (Glucagon Inj) 1 mg UNSCH PRN OTHER 03/15/17 14:45 (NovoLOG SUPPLEMENTAL SCALE) 1 ACHS SLIDING SCALE SQ 03/15/17 17:00 03/22/17 13:18 ([place]fur 5-325 Mg) 1 tab Q4H PRN PO 03/17/17 17:00 ([place] 10-325 Mg) 1 tab Q4H PRN PO 03/17/17 17:00 03/18/17 10:34 (Morphine Inj) 4 mg Q3H PRN IV PUSH 03/17/17 17:00 (Narcan Inj) 0.4 mg UNSCH PRN IV PUSH 03/17/17 17:00 (Apresoline Inj) 10 mg Q1HR PRN IV PUSH 03/17/17 20:30 03/21/17 12:15 (Vasotec Inj) 1.25 mg Q6H PRN IV PUSH 03/17/17 20:30 03/21/17 04:29 (Flexeril) 10 mg Q8H PRN PO 03/18/17 11:00 (Cardizem) 90 mg Q6HR PO 03/19/17 12:00 03/22/17 12:20 Levofloxacin/ Dextrose 150 ml @ 100 mls/hr Q48H IV 03/19/17 16:00 03/21/17 16:27 Metronidazole 100 ml @ 100 mls/hr Q8H IV 03/19/17 17:00 03/22/17 09:26 Sodium Chloride 1,000 ml @ 84 mls/hr [id number] IV 03/20/17 16:00 (Decadron Inj) 4 mg DAILY IV PUSH 03/21/17 13:30 03/22/17 09:21 (Trandate Inj) 10 mg Q4H PRN IV PUSH 03/22/17 13:00 Urinary Catheter: No Vascular Central Line Catheter: No A/P Problem List: (1) TIA (transient ischemic attack) ICD Code: G45.9 - Transient cerebral ischemic attack, unspecified Status: Acute (2) Cervical stenosis of spinal canal ICD Code: M48.02 - Spinal stenosis, cervical region (3) Dislocation of C2/C3 cervical vertebrae ICD Code: S13.131A - Dislocation of C2/C3 cervical vertebrae, initial encounter Assessment and Plan Mr. Shin is a pleasant 71 year old male who came to the hospital due to left sided weakness, numbness. Neurology evaluated patient. Imaging studies indicated C2-3 disc protrusion with severe canal stenosis and compression of gthe cord to an AP diameter of 2 or 3 mm. Neurosurgery evaluated patient and recommended surgery. - C2-3 disc protrusion - Severe cervical spinal canal stenosis - Discussed with Dr. Carlson who would like to take patient to surgery later this afternoon. - Will get STAT type and match and provide patient one unit of FFP and Vitamin K 2.5mg - PT/INR after FFP is given. - 03/16 INR is 1.4 after FFP. for Or in am as per neurosurgery documentation. - 03/17 INR down to 1.2. For Or later today. - 03/18 Sp C2 -3 anterior cervical discectomy, resection herniated nucleus pulposus with spinal cord decompression - Atrial fibrillation - Hyperlipidemia - Uncontrolled hypertension. - Continue carvedilol 25 mg twice a day, diltiazem 360 mg by mouth daily. - Patient is on Coumadin for anticoagulation. Discussed with patient regarding one of the newer medications such as apixaban or Edoxaban. - Patient will discuss with his spa therapist regarding Apixaban or Edoxaban for Afib anti-coagulation. - Continue pravastatin 40 mg daily at bedtime. - 03/18 rate controlled. Resume Coumadin when cleared by neurosurgery. - 03/20 Patient npo and therefore not able to take oral medications. Will monitor heart rate and if goes in RVR then will consider starting a Cardizem drip. - 03/21 A fib seems to be rate controlled however patient still NPO. Will start on IV metoprolol. Bp severely elevated. - 03/22 DC IV metoprolol and resume oral medications. BP severely elevated earlier ordered IV Labetalol. BP better now. - Diabetes mellitus -Hemoglobin A1c 8.7. Continue Levemir 22 units daily at bedtime, sliding scale insulin. - CINTHIA on CKD stage III -Creatinine admission was 3.1, trended to 2.3. As per review of records creatinine in 2015 2.5. Likely at baseline. Continue to monitor BUN/creatinine , avoid nephrotoxins, monitor strict I's and O's. - CINTHIA resolved. - Fever/sepsis/uti/aspiration pna - tmax of 100.9, fever. Suspected hospital acquired vs aspiration pna. - CXR ordered earlier, shows left lower lobe consolidation vs atelectasis. - Continue incentive spiramotry. Continue IV Levaquin and IV Flagyl. - UA (+) urine culture negative. - Sputum cultures ordered - not sent - Sepsis clinically resolving with resolved fever. Dysphagia - Patient evaluated by speech therapy. - 03/20 Modified barium swallow and showed - keep npo. Continue IV lfuids for now. - 03/21 Will consult ENT. Will also give a dose of Dexamethasone. - 03/22 Improving. Patient passed swallow eval and is now on a pureed diet. ENT consult pending. Full code. Warfarin (currently on hold), SCDs. Discharge Planning Continue to monitor in med surg. DC pending neurosurgery clearance, bp control and ENT consult. Francois Montes MD Mar 22, 2017 14:46
[2017-03-22] MEDS ORDERED: POTASSIUM PHOSPHATE/SODIUM PHOSPHATE 250 MG TAB PO ONE (17:45)
[2017-03-22] MEDS: PRAVASTATIN SOD 40 MG TAB PO SCH (21:52)
[2017-03-22] MEDS: INSULIN DETEMIR 100 UNITS/ML VIAL SQ SCH (21:52)
[2017-03-23] VITALS: BP 121/60; PULSE 80; RESP 17; TEMP 97.7; O2SAT 100
[2017-03-23] MEDS: metroNIDAZOLE 500 MG INJ 100 ML IV SCH ×2 (00:49→09:26)
[2017-03-23] MEDS: DILTIAZEM HCL 90 MG TAB PO SCH ×3 (00:49→12:25)
[2017-03-23 04:00] VITALS: BP 135/60; PULSE 85; RESP 18; TEMP 97.6; O2SAT 100
[2017-03-23 05:33] LABS: BICARBONATE 18.6 MEQ/L (21.0-32.0); CREATININE 2.28 MG/DL (0.60-1.30); PHOSPHORUS 2.1 MG/DL (2.5-4.9)
[2017-03-23] MEDS: SODIUM CHLOR 0.9% 1000 ML INJ 1,000 ML IV SCH ×2 (06:07→12:58)
[2017-03-23] MEDS: INSULIN ASPART SUPPLEMENTAL SCALE SQ SCH ×2 (07:45→12:00)
[2017-03-23 08:00] VITALS: BP 148/67; PULSE 71; RESP 18; TEMP 98.3; O2SAT 98
[2017-03-23] MEDS: LORATADINE 10 MG TAB PO SCH (09:00)
[2017-03-23] MEDS: DEXAMETHASONE SOD PHOS 4 MG/ML VIAL IV PUSH SCH (09:26)
[2017-03-23] MEDS: CARVEDILOL 12.5 MG TAB PO SCH (09:27)
[2017-03-23] MEDS: PANTOPRAZOLE SOD 20 MG DELAYED RELEASE TAB PO SCH (09:27)
[2017-03-23] MEDS: FERROUS SULFATE 325 MG (65 MG ELEMENTAL IRON) TAB PO SCH (09:27)
[2017-03-23] MEDS: SODIUM CHLORIDE 0.9% FLUSH 10 ML FLUSH IV FLUSH SCH (09:27)
[2017-03-23 12:00] VITALS: BP 151/65; PULSE 75; RESP 20; TEMP 97.6; O2SAT 98
--- NOTE | 2017-03-23 13:38 | HHI.PR ---
Subjective Remarks Follow-up severe cervical spinal stenosis 03/23/17-patient seen and examined, denies any significant neck pain. Denies any headaches. Patient is able to swallow without any difficulty. BP improving Objective Vitals Vital Signs Date Time Temp Pulse Resp B/P (MAP) Pulse Ox O2 Delivery O2 Flow Rate FiO2 03/23/17 12:00 97.6 75 20 151/65 (93) 98 03/23/17 08:08 21 03/23/17 08:00 98.3 71 18 148/67 (94) 98 03/23/17 04:00 97.6 85 18 135/60 (85) 100 03/23/17 00:00 97.7 80 17 121/60 (80) 100 03/22/17 20:00 98.5 86 15 157/75 (102) 99 03/22/17 19:53 100 21 03/22/17 16:00 98.1 86 17 134/65 (88) 96 I/O 03/22/17 03/22/17 03/22/17 03/23/17 03/23/17 03/23/17 07:00 15:00 23:00 07:00 15:00 23:00 Intake Total 480 ml 1231 ml Output Total 200 ml 200 ml Balance 280 ml 1031 ml Intake Oral 480 ml 150 ml IV Total 1081 ml Output Urine Total 200 ml 200 ml # Voids 2 3 2 Result Diagram: 03/21/17 0306 03/23/17 0419 Imaging Last Impressions Modified Barium Swallow 03/20/17 0000 Signed Impressions: Service Date/Time: Monday, March 20, 2017 00:00 - CONCLUSION: Aspiration. Basil Lewis MD Chest X-Ray 03/19/17 0000 Signed Impressions: Service Date/Time: Sunday, March 19, 2017 10:14 - CONCLUSION: Left lower lobe atelectasis versus airspace consolidation. Recommend repeat exam with upright PA lateral views of the chest. Amanda Sarmiento MD Cervical Spine X-Ray 03/17/17 0000 Signed Impressions: Service Date/Time: Friday, March 17, 2017 12:12 - CONCLUSION: Normal alignment with fusion as above.. Richard Alvarez MD FACR Cervical Spine MRI 03/14/17 0000 Signed Impressions: Service Date/Time: Tuesday, March 14, 2017 09:28 - CONCLUSION: 1. At C2-3 there is a large central disc protrusion with severe canal stenosis and compression of the cord to an AP diameter of 2 or 3 mm. There is myelomalacia of the cord below this level to the C5-6 level. Previous fusion C3-4-5 as above. Raman Mcmahon MD Head CT 03/13/17 1341 Signed Impressions: Service Date/Time: Monday, March 13, 2017 14:52 - CONCLUSION: Negative for an acute process. Richard Alvarez MD FACR Head Magnetic Resonance Angiography 03/13/17 0000 Signed Impressions: Service Date/Time: Monday, March 13, 2017 17:47 - CONCLUSION: Normal examination for a patient of this age. Raman Mcmahon MD Cervical Spine CT 03/13/17 0000 Signed Impressions: Service Date/Time: Monday, March 13, 2017 16:25 - CONCLUSION: 1. Anterior fixation at C3-5 with near-complete bony fusion. 2. Adjacent level disease at C2-3 with diffuse disc bulge and uncovertebral osteophytes resulting in severe spinal canal stenosis. Rajeev Altamirano MD Carotid Artery Ultrasound 03/13/17 0000 Signed Impressions: Service Date/Time: Monday, March 13, 2017 18:48 - CONCLUSION: 1. Minimal plaque visualized without hemodynamically significant stenosis. Raman Mcmahon MD Brain MRI 03/13/17 0000 Signed Impressions: Service Date/Time: Monday, March 13, 2017 17:47 - CONCLUSION: 1. Mild white matter ischemic changes. No recent infarct. No mass, hemorrhage or shift. Raman Mcmahon MD Objective Remarks GENERAL: NAD with [place] neck collar in place SKIN: Warm and dry. HEAD: Normocephalic. EYES: No scleral icterus. No injection or drainage. NECK: Supple, trachea midline. No JVD or lymphadenopathy. CARDIOVASCULAR: irreg Regular rate and rhythm without murmurs, gallops, or rubs. RESPIRATORY: Breath sounds equal bilaterally. No accessory muscle use. GASTROINTESTINAL: Abdomen soft, non-tender, nondistended. MUSCULOSKELETAL: No cyanosis, or edema. BACK: Nontender without obvious deformity. No CVA tenderness. Procedures 1. C2-3 anterior cervical discectomy, resection herniated nucleus pulposus with spinal cord decompression 2. C2- 3 anterior interbody fusion, composite allograft bone 3. C2-3 anterior cervical instrumentation 4. Removal of previous C3-C4 level anterior cervical instrumentation A/P Problem List: (1) TIA (transient ischemic attack) ICD Code: G45.9 - Transient cerebral ischemic attack, unspecified Status: Acute (2) Cervical stenosis of spinal canal ICD Code: M48.02 - Spinal stenosis, cervical region (3) Dislocation of C2/C3 cervical vertebrae ICD Code: S13.131A - Dislocation of C2/C3 cervical vertebrae, initial encounter Assessment and Plan 71-year-old man with - C2-3 disc protrusion - Severe cervical spinal canal stenosis - 03/18 Sp C2 -3 anterior cervical discectomy, resection herniated nucleus pulposus with spinal cord decompression PT to treat and eval Patient is requesting discharge home with home health care inset of CIR - Atrial fibrillation - Hyperlipidemia - Uncontrolled hypertension. - Continue carvedilol 25 mg twice a day, diltiazem 90mg Q6H mg by mouth daily. - Patient is on Coumadin for anticoagulation. - Continue pravastatin 40 mg daily at bedtime. - Diabetes mellitus -Hemoglobin A1c 8.7. Continue Levemir 22 units daily at bedtime, sliding scale insulin. - CINTHIA on CKD stage III - Continue to monitor BUN/creatinine, avoid nephrotoxins, monitor strict I's and O's. - CINTHIA resolved. - Fever/sepsis/uti/aspiration pna - Switch to PO Levaquin and Flagyl. - UA (+) urine culture negative. - Sputum cultures ordered - not sent - Sepsis clinically resolved Dysphagia - Patient evaluated by speech therapy. - 03/20 Modified barium swallow and showed - keep npo. Continue IV lfuids for now. - Appreciate input from ENT and no further recommendation as Dysphagia resolved Antonio Teixeira MD Mar 23, 2017 13:38
[2017-03-23] MEDS ORDERED: WALKER WHEELS/F1 MIS (13:42)
[2017-03-23] MEDS ORDERED: DILT90TA PO (13:42)
--- NOTE | 2017-03-23 14:26 | HHI.FF ---
Face to Face Verification Diagnosis: (1) Cervical disc disease with myelopathy (2) Cervical spinal stenosis (3) HTN (hypertension) (4) Atrial fibrillation Physical Therapy Order: Evaluate and Treat Home Health Nursing Order: Signs/symptoms of disease process I have seen patient Juan A Shin on 03/23/17. My clinical findings support the need for the requested home health care services because: Deconditioned w/ increased weakness I certify that my clinical findings support that this patient is homebound because: Poor cardiac reserve Antonio Teixeira MD Mar 23, 2017 14:26
[2017-03-23] MEDS ORDERED: LEVA250T14 PO (14:27)
[2017-03-23] MEDS ORDERED: METR-1 PO (14:28)
[2017-03-23] MEDS: LEVOFLOXACIN 750 MG PREMIX INJ 150 ML IV SCH (14:31)
--- NOTE | 2017-03-23 14:31 | HHI.DS ---
Discharge Summary Admission Date Mar 14, 2017 at 16:11 Discharge Date: Mar 23, 2017 Admitting Diagnosis CVA, left sided weakness since monday (1) TIA (transient ischemic attack) ICD Code: G45.9 - Transient cerebral ischemic attack, unspecified Status: Acute (2) Cervical stenosis of spinal canal ICD Code: M48.02 - Spinal stenosis, cervical region (3) Dislocation of C2/C3 cervical vertebrae ICD Code: S13.131A - Dislocation of C2/C3 cervical vertebrae, initial encounter Procedures 1. C2-3 anterior cervical discectomy, resection herniated nucleus pulposus with spinal cord decompression 2. C2- 3 anterior interbody fusion, composite allograft bone 3. C2-3 anterior cervical instrumentation 4. Removal of previous C3-C4 level anterior cervical instrumentation Brief History - From Admission History from patient, ER physician communication, and review of medical records. Patient's who is at the bedside also provided some history. Patient reported that starting about a few days ago, he noted that he was not able to write with his left hand properly. Stated it takes him a while to right and he is usually left-handed. He also reports of dragging his left foot for past few days. Therefore went to his turning and beading machine operator Dr. Santos today who referred him to come to hospital. Patient reports that he usually uses a cane since 2010 because of balance issues. Is very different from his normal. On review of system, patient reports that he was feeling somewhat dizzy on . He stays in bed for a few hours and dizziness actually resolved on its own. Apart from that, patient denies any any recent fever/nausea/vomiting/diarrhea/ urinary burning or pain on urination. Next I denies any blood in his stool or urine. Patient is on Coumadin at home. He reports of history of atrial fibrillation. He denies any chest pain/palpitations/dizziness/syncopal episodes. CBC/BMP: 03/21/17 0306 03/23/17 0349 Significant Findings Laboratory Tests Test 03/21/17 03:06 03/23/17 04:19 Red Blood Count 3.55 MIL/MM3 (4.50-5.90) Hemoglobin 9.9 GM/DL (13.0-17.0) Hematocrit 29.6 % (39.0-51.0) Monocytes (%) (Auto) 13.7 % (0.0-8.0) Monocytes # (Auto) 1.0 TH/MM3 (0-0.9) Blood Urea Nitrogen 30 MG/DL (7-18) 33 MG/DL (7-18) Creatinine 2.18 MG/DL (0.60-1.30) 2.28 MG/DL (0.60-1.30) Albumin 2.6 GM/DL (3.4-5.0) Calcium Level 8.0 MG/DL (8.5-10.1) 8.0 MG/DL (8.5-10.1) Phosphorus Level 2.0 MG/DL (2.5-4.9) 2.1 MG/DL (2.5-4.9) Chloride Level 115 MEQ/L (98-107) 113 MEQ/L (98-107) Carbon Dioxide Level 18.0 MEQ/L (21.0-32.0) 18.6 MEQ/L (21.0-32.0) Estimat Glomerular Filtration Rate 36 ML/MIN (>89) 35 ML/MIN (>89) Random Glucose 69 MG/DL (74-106) Imaging Last Impressions Modified Barium Swallow 03/20/17 0000 Signed Impressions: Service Date/Time: Monday, March 20, 2017 00:00 - CONCLUSION: Aspiration. Basil Lewis MD Chest X-Ray 03/19/17 0000 Signed Impressions: Service Date/Time: Sunday, March 19, 2017 10:14 - CONCLUSION: Left lower lobe atelectasis versus airspace consolidation. Recommend repeat exam with upright PA lateral views of the chest. Amanda Sarmiento MD Cervical Spine X-Ray 03/17/17 0000 Signed Impressions: Service Date/Time: Friday, March 17, 2017 12:12 - CONCLUSION: Normal alignment with fusion as above.. Richard Alvarez MD FACR Cervical Spine MRI 03/14/17 0000 Signed Impressions: Service Date/Time: Tuesday, March 14, 2017 09:28 - CONCLUSION: 1. At C2-3 there is a large central disc protrusion with severe canal stenosis and compression of the cord to an AP diameter of 2 or 3 mm. There is myelomalacia of the cord below this level to the C5-6 level. Previous fusion C3-4-5 as above. Raman Mcmahon MD Head CT 03/13/17 1341 Signed Impressions: Service Date/Time: Monday, March 13, 2017 14:52 - CONCLUSION: Negative for an acute process. Richard Alvarez MD FACR Head Magnetic Resonance Angiography 03/13/17 0000 Signed Impressions: Service Date/Time: Monday, March 13, 2017 17:47 - CONCLUSION: Normal examination for a patient of this age. Raman Mcmahon MD Cervical Spine CT 03/13/17 0000 Signed Impressions: Service Date/Time: Monday, March 13, 2017 16:25 - CONCLUSION: 1. Anterior fixation at C3-5 with near-complete bony fusion. 2. Adjacent level disease at C2-3 with diffuse disc bulge and uncovertebral osteophytes resulting in severe spinal canal stenosis. Rajeev Altamirano MD Carotid Artery Ultrasound 03/13/17 0000 Signed Impressions: Service Date/Time: Monday, March 13, 2017 18:48 - CONCLUSION: 1. Minimal plaque visualized without hemodynamically significant stenosis. Raman Mcmahon MD Brain MRI 03/13/17 0000 Signed Impressions: Service Date/Time: Monday, March 13, 2017 17:47 - CONCLUSION: 1. Mild white matter ischemic changes. No recent infarct. No mass, hemorrhage or shift. Raman Mcmahon MD PE at Discharge GENERAL: NAD with [place] neck collar in place SKIN: Warm and dry. HEAD: Normocephalic. EYES: No scleral icterus. No injection or drainage. NECK: Supple, trachea midline. No JVD or lymphadenopathy. CARDIOVASCULAR: irreg Regular rate and rhythm without murmurs, gallops, or rubs. RESPIRATORY: Breath sounds equal bilaterally. No accessory muscle use. GASTROINTESTINAL: Abdomen soft, non-tender, nondistended. MUSCULOSKELETAL: No cyanosis, or edema. BACK: Nontender without obvious deformity. No CVA tenderness. Hospital Course While in the Hospital, patient was treated for: - C2-3 disc protrusion - Severe cervical spinal canal stenosis - 03/18 Sp C2 -3 anterior cervical discectomy, resection herniated nucleus pulposus with spinal cord decompression PT to treat and eval Management per neurosurgery - Atrial fibrillation - Hyperlipidemia - Uncontrolled hypertension. - Treated with carvedilol 25 mg twice a day, diltiazem 90mg Q6H mg by mouth daily. - Patient is on Coumadin for anticoagulation which I will resume. - Treated with pravastatin 40 mg daily at bedtime. - Diabetes mellitus -Hemoglobin A1c 8.7. Continue Levemir 22 units daily at bedtime, sliding scale insulin. - CINTHIA on CKD stage III - Continue to monitor BUN/creatinine, avoid nephrotoxins, monitor strict I's and O's. - CINTHIA resolved. - Fever/sepsis/uti/aspiration pna - Switch to PO Levaquin and Flagyl. - UA (+) urine culture negative. - Sputum cultures ordered - not sent - Sepsis clinically resolved Dysphagia - Patient evaluated by speech therapy. - 03/20 Modified barium swallow and showed - - Appreciate input from ENT and no further recommendation as Dysphagia resolved Pt Condition on Discharge: Good Discharge Disposition: Disch w/ Home Health Serv Discharge Instructions DIET: Follow Instructions for: Diabetic Diet Activities you can perform: Regular-No Restrictions Follow up Referrals: Neurosurgery PCP Follow-up - 1 Week New Orders: PT/INR - 2-3 Days New Medications: Levofloxacin (Levaquin) 250 Mg Tablet 250 MG PO DAILY for Infection, #2 TAB 0 Refills Metronidazole (Flagyl) 500 Mg Tab 500 MG PO TID for Infection, #6 TAB 0 Refills Walker with Front Wheels (Walker with Front Wheels) 1 Mis Mis EA .XX DIRECTED, #1 0 Refills Diltiazem (Diltiazem) 90 Mg Tab 90 MG PO Q6HR for Blood Pressure Management, #120 TAB 3 Refills Continued Medications: Albiglutide 4-Pack Inj (Tanzeum 4-Pack Inj) 50 Mg Pfpen 50 MG SQ Q7D, #4 PEN Carvedilol (Carvedilol) 25 Mg Tab 25 MG PO BID, #60 TAB 0 Refills Ferrous Sulfate (Ferrous Sulfate) 325 Mg (65 Mg Iron) Tablet 325 MG PO BIDPC for Nutritional Supplement, #60 TAB 0 Refills Flunisolide Nasal [place] (Flunisolide Nasal Wendel) 0.025 Mg/Act Naspr 2 SPRAY EACH NARE BID for Allergy Management, #1 BOTTLE 0 Refills Hydrochlorothiazide (Hydrochlorothiazide) 25 Mg Tab 25 MG PO DAILY, #30 TAB 0 Refills Insulin Aspart Inj (Novolog Flexpen Inj) 300 Unit/3 Ml Pen 1 SQ TID for Blood Sugar Management, #1 PEN 0 Refills Insulin Glargine Inj (Lantus Inj) 1,000 Unit/10 Ml Vial 22 UNITS SQ HS for Blood Sugar Management, VIAL 0 Refills Ipratropium Nasal (Ipratropium Nasal) 0.06% Wendel 1 SPRAY EACH NARE TID, #1 BOTTLE 0 Refills Loratadine Odt (Loratadine Odt) 10 Mg Tab 10 MG PO DAILY for Allergy Management, TAB 0 Refills Omeprazole (Omeprazole) 20 Mg Tab 20 MG PO DAILY, #30 TAB 0 Refills Simvastatin (Simvastatin) 10 Mg Tab 10 MG PO HS for Cholesterol Management, #30 TAB 0 Refills Warfarin (Coumadin) 2.5 Mg Tab 2.5 MG PO MON,WED,FRI for Prevent Blood Clot, #30 TAB 0 Refills Warfarin (Coumadin) 5 Mg Tab 5 MG PO TU,,SAT,MON for Blood Clot Prevention, #30 TAB 0 Refills Discontinued Medications: Diltiazem ER 24 HR (Diltiazem ER 24 HR) 360 Mg Caper 360 MG PO DAILY, #30 CAP 0 Refills Valsartan (Valsartan) 320 Mg Tab 320 MG PO DAILY, #30 TAB 0 Refills Antonio Teixeira MD Mar 23, 2017 14:31
--- NOTE | 2017-03-24 11:19 | MB ---
cc: CANDICE LEE DATE OF CONSULTATION: 03/23/2017 ROOM: 1318 REASON FOR CONSULTATION: 72-year-old gentleman status post repair of cervical fracture who failed the barium swallow three days ago for evaluation, since that time. The patient is eating and swallowing and talking in tolerating all secretions well. EXAMINATION FACE: EAR: Within normal limits. NASAL CAVITY: Within normal limits. ORAL CAVITY: Within normal limits. NECK: Soft, supple, no masses with incision covered on the left anterior neck at the level of the thyroid cartilage. Flexible exam reveals good vocal cord mobility with mild erythema postcricoid. IMPRESSION 1. Postoperative swelling the inhibiting swallowing which is now improved no treatment necessary. 2. Return as needed. MD BELL Diop/ /8:59 AM /10:35 AM
== END 2017-03-23 15:59 | disposition home health service (06) | DRG 28 ==
LOC: NEPE 13:26 → NEDA 17:07 → NEPFCDU 17:58 → OBSVTOIN 03-14 16:11 → N06A 03-15 01:50 → N03A 03-17 18:33 → N03B 03-19 12:35 → N05A 03-23 12:42
PROVIDERS: ADMIT Hospitalist; ATTEND Hospitalist
PROC: 30233K1 Transfusion of Nonautologous Frozen Plasma into Peripheral Vein, Percutaneous Approach (ICD-10-PCS; 2017-03-15)
PROC: 0RT30ZZ Resection of Cervical Vertebral Disc, Open Approach (ICD-10-PCS; 2017-03-17)
PROC: 0RP104Z Removal of Internal Fixation Device from Cervical Vertebral Joint, Open Approach (ICD-10-PCS; 2017-03-17)
PROC: 0RG1070 Fusion of Cervical Vertebral Joint with Autologous Tissue Substitute, Anterior Approach, Anterior Column, Open Approach (ICD-10-PCS; principal; 2017-03-17 10:51)
DX: G45.9 Transient cerebral ischemic attack, unspecified (principal); A41.9 Sepsis, unspecified organism; J69.0 Pneumonitis due to inhalation of food and vomit; N18.4 Chronic kidney disease, stage 4 (severe); N17.9 Acute kidney failure, unspecified; E11.22 Type 2 diabetes mellitus with diabetic chronic kidney disease; E11.40 Type 2 diabetes mellitus with diabetic neuropathy, unspecified; I48.91 Unspecified atrial fibrillation; M50.01 Cervical disc disorder with myelopathy, high cervical region; I12.9 Hypertensive chronic kidney disease with stage 1 through stage 4 chronic kidney disease, or unspecified chronic kidney disease; N39.0 Urinary tract infection, site not specified; J98.11 Atelectasis; M43.02 Spondylolysis, cervical region; J44.9 Chronic obstructive pulmonary disease, unspecified; M21.372 Foot drop, left foot; R13.13 Dysphagia, pharyngeal phase; R79.1 Abnormal coagulation profile; E78.5 Hyperlipidemia, unspecified; M25.78 Osteophyte, vertebrae; K21.9 Gastro-esophageal reflux disease without esophagitis; M10.9 Gout, unspecified; Z98.1 Arthrodesis status; Z79.4 Long term (current) use of insulin; Z79.01 Long term (current) use of anticoagulants; Z80.1 Family history of malignant neoplasm of trachea, bronchus and lung; Z80.3 Family history of malignant neoplasm of breast; Z82.49 Family history of ischemic heart disease and other diseases of the circulatory system
CPT/HCPCS: 36430; 70450; 70544; 70551; 71045; 72020; 72125; 72141; 74230; 76000; 80048; 80053; 80061; 81001; 82948; 83036; 83735; 84100; 84484; 85025; 85610; 85730; 86850; 86900; 86901; 86927; 87086; 93005; 93306; 93880; 94150; C1713; G0378; G8987-GO; G8987-GP; G8988-GO; G8988-GP; G8989-GO; J0131; J0360; J0690; J1100; J1580; J1815; J1956; J3010; J7030; J7120; L0150; L0172; P9017